=== PATIENT | male | born 1945 | race Caucasian/White ===

== ENCOUNTER → 2016-09-03 | Outpatient (CLI) | payer MEDICARE, OTHER ==
--- NOTE | 2016-09-03 11:07 | XR ---
EXAMINATION TYPE: XR lumbar spine 2 or 3V DATE OF EXAM: 09/03/2016 10:30 AM CLINICAL HISTORY: pain TECHNIQUE: Three views of the lumbar spine are submitted. COMPARISON: None. FINDINGS: There are 5 lumbar type vertebral bodies identified. The lumbar spine shows satisfactory alignment w ithout evidence of acute fracture or dislocation. Vertebral body heights are within normal limits. Moderate degenerative disc space narrowing and spondylosis identified. The overlying soft tissue ev ears unremarkable. IMPRESSION: No acute fracture or dislocation is seen in the lumbar spine. ICD 10 NO FRACTURE, INITIAL EVALUATION
--- NOTE | 2016-09-09 10:54 | P.ARTDOP ---
Arterial Doppler LOWER EXTREMITY ARTERIAL DOPPLER: DATE OF SERVICE: 09/03/2016 Reason for study: Left leg pain. Doppler waveforms: Multiphasic bilaterally throughout. Pulse volume recording: Normal configuration. Pressure gradients: None. Ankle-brachial indices: Greater than 1 bilaterally. Toe pressures: [] on the right, [] on the left Impression: Normal study.
== END | disposition home or self-care (01) ==
LOC: RADUSWWP 09:11
PROVIDERS: ATTEND Family Medicine
DX: I73.9 Peripheral vascular disease, unspecified (principal); M54.40 Lumbago with sciatica, unspecified side
CPT/HCPCS: 72100; 93923

== ENCOUNTER → 2017-05-25 | Outpatient (CLI) | payer MEDICARE, OTHER ==
[2017-05-25 08:33] LABS: Blood Urea Nitrogen 18 mg/dL (9-20); Non-African American GFR(MDRD) >60 (>60 ml/min/1.73 sqM)
--- NOTE | 2017-05-25 12:06 | CT ---
EXAMINATION TYPE: CT abdomen pelvis wo/w con DATE OF EXAM: 05/25/2017 COMPARISON: CT abdomen and pelvis September 19, 2014 HISTORY: hematuria CT DLP: 1909.40 mGycm, Automated Exposure Control for Dose Reduction was Utilized. CONTRAST: CT scan of the abdomen and pelvis is performed with oral and without and with IV Contrast, patient in jected with 100 mL of Omnipaque 300. LUNG BASES: There is basilar posterior scarring and cystic change redemonstrated. LIVER/GB: Cholecystectomy clips are now present. PANCREAS: No significant abnormality is seen. SPLEEN: Calcification along lateral aspect of spleen is redemonstrated. ADRENALS: No significant abnormality is seen. KIDNEYS: There is progression in bilateral renal calculi, there are 2 adjacent calculi upper pole col lecting system on the right on coronal image 64 measuring up to 5 mm on long axis. There are 5 -8 sca ttered calculi throughout the left kidney with largest lower pole level measuring almost 4.5 mm on lo ng axis. There is symmetric cortical medullary uptake and excretion from both kidneys. There are a fe w simple appearing cysts scattered throughout both kidneys with largest cyst seen upper pole level bi laterally. Some lesions are subcentimeter and too small to further characterize but presumed benign. No hydronephrosis is evident bilaterally. There is however obstructing 5 mm calculus in the distal le ft ureter right before UVJ on axial image 76. There is mild hydroureter just proximal to this. There is no significant proximal hydroureter. Adjacent pelvic phleboliths are seen. No intraluminal calculi are seen in bladder. BOWEL: There are scattered diverticula with prominent diverticulosis involving the sigmoid colon. The re is no CT evidence for acute diverticulitis. Oral contrast reaches proximal left colon. Normal-appe aring appendix is seen from cecum. There is no suspicious small or large bowel dilatation. PROSTATE/SEMINAL VESICLES: Prostate gland is upper limits of normal in size but bulging on bladder ba se, underlying BPH is felt present. Clinical correlation advised. Central zone calcifications are see n. LYMPH NODES: No greater than 1cm abdominal or pelvic lymph nodes are appreciated. OSSEOUS STRUCTURES: There is redemonstration of marked disc space narrowing at lumbosacral junction w ith disc calcification. There is fairly moderate to severe spurring in the visualized thoracic spine redemonstrated. OTHER: No significant additional abnormality is seen. IMPRESSION: Progression in size and number of bilateral renal calculi from prior CT 2014. There is ob structing 5 mm calculus in distal left ureter right before UVJ but is not causing significant hydrone phrosis or delayed excretion of contrast.
== END | disposition home or self-care (01) ==
LOC: RADCTMAIN 07:55
PROVIDERS: ATTEND Urology
DX: N13.2 Hydronephrosis with renal and ureteral calculous obstruction (principal)
CPT/HCPCS: 82565; 84520; 74178; 36415; Q9967

== ENCOUNTER 2017-06-12 18:50 | Inpatient (IN) | payer MEDICARE, OTHER ==
[2017-06-12] MEDS ORDERED: ACETAMINOPHEN TAB 325 MG TAB PO STA (19:18)
[2017-06-12] MEDS: SODIUM CHLORIDE 0.9% 500 ML IV SCH ×3 (19:33→20:43)
--- NOTE | 2017-06-12 19:37 | ED ---
General Adult HPI <Josh Arora - Last Filed: 06/12/17 20:12> - General Source: patient, RN notes reviewed Mode of arrival: ambulatory Limitations: no limitations <Rj Gardner - Last Filed: 06/12/17 20:15> - General Chief complaint: Urogenital Stated complaint: POST OP FEVER Time Seen by Provider: 06/12/17 19:01 - History of Present Illness Initial comments: This a 72-year-old male presents emergency Department with chief complaint of left flank pain, fever. Patient states he has stent placed by Dr. Earl on Wednesday for kidney stones. Patient states she's had this done several times in the past. Patient states that he has not been feeling well and states that symptoms are getting worse. Patient states it 2 nights of hematuria though that abruptly stopped and states that ever since he's had increased pain. Patient states every time he has to urinate he feels a pressure building has worsen the left flank region. Patient states that he has been taken his [place] which helps alleviate some a symptoms but not much. Patient states his urine output is less than usual. Patient denies any dysuria at this time. Patient states that he does feel slightly bloated especially when he has to urinate. Denies any diarrhea. He states he was constipated but took some over-the- counter medications which helped. Patient did call his urologist who advised him come emergency department. Patient did take 2 Aleve prior to arrival (Rj Gardner) - Related Data Home Medications Medication Instructions Recorded Confirmed Multivitamins, Thera [Multivitamin 1 tab PO DAILY 06/12/17 06/12/17 (formulary)] Allergies Allergy/AdvReac Type Severity Reaction Status Date / Time acetaminophen [From [place]] AdvReac Stomach Verified 06/12/17 19:28 upset, constipation hydrocodone [From [place]] AdvReac Stomach Verified 06/12/17 19:28 upset, constipation moxifloxacin HCl AdvReac Unknown Verified 09/15/14 23:29 [From Avelox] fluoroquinolones Allergy Itching Uncoded 06/12/17 19:28 Review of Systems ROS Other: All systems not noted in ROS Statement are negative. <Josh Arora - Last Filed: 06/12/17 20:12> ROS Other: All systems not noted in ROS Statement are negative. <Rj Gardner - Last Filed: 06/12/17 20:15> ROS Statement: Those systems with pertinent positive or pertinent negative responses have been documented in the HPI. Past Medical History Past Medical History: CVA/TIA, Diabetes Mellitus, Hypertension, Osteoarthritis ( OA), Pneumonia Additional Past Medical History / Comment(s): kidney stones, Lichen Planus, Jalcyn Ayon History of Any Multi-Drug Resistant Organisms: None Reported Past Surgical History: Orthopedic Surgery Additional Past Surgical History / Comment(s): kidney stones removed Past Psychological History: No Psychological Hx Reported Smoking Status: Former smoker Past Alcohol Use History: Occasional Past Drug Use History: None Reported <Rj Gardner - Last Filed: 06/12/17 20:15> General Exam Limitations: no limitations General appearance: alert, in no apparent distress Head exam: Present: atraumatic, normocephalic, normal inspection Eye exam: Present: normal appearance, PERRL, EOMI. Absent: scleral icterus, conjunctival injection, periorbital swelling ENT exam: Present: normal exam, normal oropharynx, mucous membranes moist, TM's normal bilaterally, normal external ear exam Neck exam: Present: normal inspection, full ROM. Absent: tenderness, meningismus, lymphadenopathy Respiratory exam: Present: normal lung sounds bilaterally. Absent: respiratory distress, wheezes, rales, rhonchi, stridor Cardiovascular Exam: Present: regular rate, normal rhythm, normal heart sounds. Absent: systolic murmur, diastolic murmur, rubs, gallop, clicks GI/Abdominal exam: Present: soft, normal bowel sounds. Absent: distended, tenderness, guarding, rebound, rigid Back exam: Present: CVA tenderness (L). Absent: CVA tenderness (R) Skin exam: Present: warm, dry, intact, normal color. Absent: rash <Rj Gardner - Last Filed: 06/12/17 20:15> Medical Decision Making - Lab Data Result diagrams: 06/12/17 19:37 06/12/17 19:37 <Josh Arora - Last Filed: 06/12/17 20:12> - Lab Data Result diagrams: 06/12/17 19:37 06/12/17 19:37 <Rj Gardner - Last Filed: 06/12/17 20:15> - Medical Decision Making Patient had a ureteral stent placed 4 days ago. Yesterday started difficulty having urinations and blood in the urine. Today he had fever between 100 102. Pain persists and he has difficulty urinating. He spoke to his urologist who told to come in emergency room. In emergency room the patient's labs show white count of 13, BUN 19 creatinine 1.1 GFR greater than 60. The patient's urine also shows 52 reds 42 whites and moderate blood. Culture of this urine is being done. The patient has ALLERGIES to fluoroquinolones. I discussed the case with his urologist Dr. Earl wants the patient admitted and placed on ampicillin and gentamicin. Dr. Arora (Josh Arora) - Lab Data Lab Results 06/12/17 06/12/17 06/12/17 Range/Units 19:37 19:37 19:37 WBC 13.2 H (3.8-10.6) k/uL RBC 4.69 (4.30-5.90) m/uL Hgb 16.1 (13.0-17.5) gm/dL Hct 46.1 (39.0-53.0) % MCV 98.2 (80.0-100.0) fL MCH 34.4 (25.0-35.0) pg MCHC 35.0 (31.0-37.0) g/dL RDW 12.8 (11.5-15.5) % Plt Count 169 (150-450) k/uL Neutrophils % 90 % Lymphocytes % 4 % Monocytes % 4 % Eosinophils % 1 % Basophils % 0 % Neutrophils # 11.9 H (1.3-7.7) k/uL Lymphocytes # 0.5 L (1.0-4.8) k/uL Monocytes # 0.6 (0-1.0) k/uL Eosinophils # 0.2 (0-0.7) k/uL Basophils # 0.0 (0-0.2) k/uL PT (9.0-12.0) sec INR (<1.2) APTT (22.0-30.0) sec Sodium 135 L (137-145) mmol/L Potassium 4.3 (3.5-5.1) mmol/L Chloride 99 (98-107) mmol/L Carbon Dioxide 23 (22-30) mmol/L Anion Gap 13 mmol/L BUN 19 (9-20) mg/dL Creatinine 1.10 (0.66-1.25) mg/dL Est GFR (MDRD) Af Amer >60 (>60 ml/min/1.73 sqM) Est GFR (MDRD) Non-Af >60 (>60 ml/min/1.73 sqM) Glucose 178 H (74-99) mg/dL Plasma Lactic Acid Mike 1.9 (0.7-2.0) mmol/L Calcium 9.5 (8.4-10.2) mg/dL Total Bilirubin 1.3 (0.2-1.3) mg/dL AST 15 L (17-59) U/L ALT 34 (21-72) U/L Alkaline Phosphatase 78 (38-126) U/L Total Protein 6.7 (6.3-8.2) g/dL Albumin 4.0 (3.5-5.0) g/dL Urine Color Urine Appearance (Clear) Urine pH (5.0-8.0) Ur Specific [place] (1.001-1.035) Urine Protein (Negative) Urine Glucose (UA) (Negative) Urine Ketones (Negative) Urine Blood (Negative) Urine Nitrite (Negative) Urine Bilirubin (Negative) Urine Urobilinogen (<2.0) mg/dL Ur Leukocyte Esterase (Negative) Urine RBC (0-5) /hpf Urine WBC (0-5) /hpf Ur Squamous Epith Cells (0-4) /hpf Urine Bacteria (None) /hpf Urine Mucus (None) /hpf 06/12/17 06/12/17 Range/Units 19:37 19:37 WBC (3.8-10.6) k/uL RBC (4.30-5.90) m/uL Hgb (13.0-17.5) gm/dL Hct (39.0-53.0) % MCV (80.0-100.0) fL MCH (25.0-35.0) pg MCHC (31.0-37.0) g/dL RDW (11.5-15.5) % Plt Count (150-450) k/uL Neutrophils % % Lymphocytes % % Monocytes % % Eosinophils % % Basophils % % Neutrophils # (1.3-7.7) k/uL Lymphocytes # (1.0-4.8) k/uL Monocytes # (0-1.0) k/uL Eosinophils # (0-0.7) k/uL Basophils # (0-0.2) k/uL PT 11.8 (9.0-12.0) sec INR 1.2 H (<1.2) APTT 24.2 (22.0-30.0) sec Sodium (137-145) mmol/L Potassium (3.5-5.1) mmol/L Chloride (98-107) mmol/L Carbon Dioxide (22-30) mmol/L Anion Gap mmol/L BUN (9-20) mg/dL Creatinine (0.66-1.25) mg/dL Est GFR (MDRD) Af Amer (>60 ml/min/1.73 sqM) Est GFR (MDRD) Non-Af (>60 ml/min/1.73 sqM) Glucose (74-99) mg/dL Plasma Lactic Acid Mike (0.7-2.0) mmol/L Calcium (8.4-10.2) mg/dL Total Bilirubin (0.2-1.3) mg/dL AST (17-59) U/L ALT (21-72) U/L Alkaline Phosphatase (38-126) U/L Total Protein (6.3-8.2) g/dL Albumin (3.5-5.0) g/dL Urine Color Yellow Urine Appearance Clear (Clear) Urine pH 7.5 (5.0-8.0) Ur Specific [place] 1.009 (1.001-1.035) Urine Protein 1+ H (Negative) Urine Glucose (UA) Negative (Negative) Urine Ketones Trace H (Negative) Urine Blood Moderate H (Negative) Urine Nitrite Negative (Negative) Urine Bilirubin Negative (Negative) Urine Urobilinogen <2.0 (<2.0) mg/dL Ur Leukocyte Esterase Large H (Negative) Urine RBC 54 H (0-5) /hpf Urine WBC 42 H (0-5) /hpf Ur Squamous Epith Cells <1 (0-4) /hpf Urine Bacteria Rare H (None) /hpf Urine Mucus Rare H (None) /hpf Disposition <Josh Arora - Last Filed: 06/12/17 20:12> <Rj Gardner - Last Filed: 06/12/17 20:15> Clinical Impression: Fever, Infection and inflammatory reaction due to indwelling ureteral stent, initial encounter Disposition: ADMITTED IP TO THIS HOSP Condition: Fair Referrals: Marshall Robertson MD [Primary Care Provider] - 1-2 days
[2017-06-12 19:55] LABS: Appearance,Urine Clear (Clear); Bacteria,Urine Rare /hpf; Bilirubin,Urine Negative (Negative); Glucose,Urine (UA) Negative (Negative); Ketones,Urine Trace (Negative); Leukocyte Esterase,Urine Large (Negative); Mucus,Urine Rare /hpf; Nitrite,Urine Negative (Negative); PH, Urine 7.5 (5.0-8.0); Particle Count 3010; Protein,Urine 1+ (Negative); RBC,Urine 54 /hpf (0-5); Specific Gravity,Urine 1.009 (1.001-1.035); Squamous Epithelial Cell,Urine <1 /hpf (0-4); UA Billing (MACRO vs. MICRO) MICRO; Urobilinogen,Urine <2.0 mg/dL (<2.0); WBC,Urine 42 /hpf (0-5)
[2017-06-12 19:57] LABS: Basophils % (A) 0 %; CHCM 34.8; Eosinophils # (A) 0.2 k/uL (0-0.7); Eosinophils % (A) 1 %; HCT 46.1 % (39.0-53.0); HDW 2.66; HGB 16.1 gm/dL (13.0-17.5); Luc # (Auto) 0.08; Luc % (Auto) 1; Lymphocytes # (A) 0.5 k/uL (1.0-4.8); Lymphocytes % (A) 4 %; MCH 34.4 pg (25.0-35.0); MCV 98.2 fL (80.0-100.0); Mean Platelet Volume 6.9; Monocytes # (A) 0.6 k/uL (0-1.0); Monocytes % (A) 4 %; Neutrophils # (A) 11.9 k/uL (1.3-7.7); Neutrophils % (A) 90 %; RBC 4.69 m/uL (4.30-5.90); RDW 12.8 % (11.5-15.5); WBC 13.2 k/uL (3.8-10.6); WBC (Perox) 13.58
[2017-06-12 20:01] LABS: ALT 34 U/L (21-72); AST 15 U/L (17-59); Alkaline Phosphatase 78 U/L (38-126); Anion Gap 13 mmol/L; Blood Urea Nitrogen 19 mg/dL (9-20); Calcium 9.5 mg/dL (8.4-10.2); Carbon Dioxide 23 mmol/L (22-30); Chloride 99 mmol/L (98-107); Glucose 178 mg/dL (74-99); Non-African American GFR(MDRD) >60 (>60 ml/min/1.73 sqM); Potassium 4.3 mmol/L (3.5-5.1); Sodium 135 mmol/L (137-145); Total Bilirubin 1.3 mg/dL (0.2-1.3); Total Protein 6.7 g/dL (6.3-8.2)
[2017-06-12 20:04] LABS: INR 1.2 (<1.2); Partial Thromboplastin Time 24.2 sec (22.0-30.0); Prothrombin Time 11.8 sec (9.0-12.0)
[2017-06-12] MEDS ORDERED: AMPICILLIN 2,000 MG in SODIUM CHLORIDE 0.9% 100 ML IVPB STA (20:13)
[2017-06-12] MEDS ORDERED: GENTAMICIN PER PHARMACY MISCELLANE SCH (20:15)
[2017-06-12] MEDS ORDERED: NALOXONE 0.4 MG/ML 1 ML VIAL IV PRN (20:15)
[2017-06-12] MEDS ORDERED: ONDANSETRON 4 MG/2 ML VIAL IVP PRN (20:15)
[2017-06-12] MEDS ORDERED: MORPHINE SULFATE 2 MG/ML SYRINGE IV PRN (20:15)
[2017-06-12] MEDS ORDERED: ACETAMINOPHEN TAB 325 MG TAB PO PRN (20:15)
[2017-06-12] MEDS ORDERED: HYDROcodone/APAP 7.5-325MG 1 EACH TAB PO PRN (20:16)
[2017-06-12] MEDS ORDERED: GENTAMICIN 120 MG in SODIUM CHLORIDE 0.9% 100 ML IVPB ONE (21:00)
[2017-06-12 22:52] VITALS: BMI 27.1
[2017-06-13] MEDS: AMPICILLIN 2,000 MG in SODIUM CHLORIDE 0.9% 100 ML IVPB SCH ×3 (00:28→16:40)
[2017-06-13] MEDS: DOCUSATE 100 MG CAP PO SCH ×2 (08:41→20:32)
[2017-06-13] MEDS: TAMSULOSIN 0.4 MG CAP.ER.24H PO SCH (08:41)
[2017-06-13] MEDS: GENTAMICIN 120 MG in SODIUM CHLORIDE 0.9% 100 ML IVPB SCH ×2 (10:42→20:32)
[2017-06-13] MEDS ORDERED: VANCOMYCIN IV PER PHARMACY 1 EACH MISC MISCELLANE PRN (20:46)
[2017-06-13] MEDS: VANCOMYCIN 1,250 MG in SODIUM CHLORIDE 0.9% 250 ML IVPB SCH (21:06)
[2017-06-14] MEDS: VANCOMYCIN 1,250 MG in SODIUM CHLORIDE 0.9% 250 ML IVPB SCH ×2 (05:18→18:00)
[2017-06-14 06:59] LABS: Glucose,Whole Blood 152 mg/dL (75-99)
[2017-06-14] MEDS ORDERED: INSULIN LISPRO (humaLOG) 300 UNIT/3 ML VIAL SQ SCH (07:30)
[2017-06-14 07:51] LABS: Anion Gap 9 mmol/L; Blood Urea Nitrogen 15 mg/dL (9-20); Calcium 9.3 mg/dL (8.4-10.2); Carbon Dioxide 23 mmol/L (22-30); Chloride 105 mmol/L (98-107); Glucose 145 mg/dL (74-99); Non-African American GFR(MDRD) >60 (>60 ml/min/1.73 sqM); Potassium 4.5 mmol/L (3.5-5.1); Sodium 137 mmol/L (137-145)
[2017-06-14] MEDS ORDERED: GENTAMICIN TROUGH DUE 1 EACH MISC MISCELLANE ONE (08:00)
[2017-06-14 08:07] LABS: Basophils % (A) 0 %; CH 33.7; CHCM 33.9; Eosinophils # (A) 0.2 k/uL (0-0.7); Eosinophils % (A) 2 %; HCT 38.5 % (39.0-53.0); HDW 2.72; HGB 13.2 gm/dL (13.0-17.5); Luc # (Auto) 0.19; Luc % (Auto) 2; Lymphocytes % (A) 9 %; MCH 34.3 pg (25.0-35.0); MCHC 34.3 g/dL (31.0-37.0); MCV 100.1 fL (80.0-100.0); Monocytes # (A) 0.7 k/uL (0-1.0); Monocytes % (A) 6 %; Neutrophils # (A) 9.5 k/uL (1.3-7.7); Neutrophils % (A) 82 %; RBC 3.85 m/uL (4.30-5.90); RDW 12.8 % (11.5-15.5); WBC 11.6 k/uL (3.8-10.6); WBC (Perox) 11.27
[2017-06-14] MEDS: DOCUSATE 100 MG CAP PO SCH ×2 (08:44→19:29)
[2017-06-14] MEDS: MAGNESIUM HYDROXIDE 2,400 MG/10 ML CUP PO PRN (08:44)
[2017-06-14] MEDS: TAMSULOSIN 0.4 MG CAP.ER.24H PO SCH (08:44)
[2017-06-14] MEDS ORDERED: GENTAMICIN PEAK DUE 1 EACH MISC MISCELLANE ONE (10:30)
[2017-06-14 11:52] LABS: Glucose,Whole Blood 145 mg/dL (75-99)
--- NOTE | 2017-06-14 16:04 | P.PN ---
Subjective Progress Note Date: 06/14/17 Principal diagnosis: UTI with sepsis. Mr. Cisneros states that he is feeling better. His primary symptom at this time is urinary frequency, and he reports discomfort in the left flank at the time of micturition. He was reassured that this is common in patients with ureteral stents. Both urine and blood cultures have shown coagulase negative Staphylococcus, and in view of this he is being treated with vancomycin. Bladder Scan confirms complete bladder emptying. Objective - Vital Signs Vital signs: Vital Signs Temp 98 F 06/14/17 15:01 Pulse 67 06/14/17 15:01 Resp 16 06/14/17 15:01 BP 153/69 06/14/17 15:01 Pulse Ox 96 06/14/17 15:01 Intake & Output 06/13/17 06/14/17 06/14/17 18:59 06:59 18:59 Intake Total 700 875 Output Total 1350 300 Balance -650 875 -300 Intake: IV 600 Ampicillin 2,000 mg In 100 Sodium Chloride 0.9% 100 ml @ 200 mls/hr IVPB ONCE STA Rx#:[id number] Sodium Chloride 0.9% 500 500 ml @ 1000 mls/hr IV Q35M BANDAR Rx#:[id number] Intake, IV Titration 100 375 Amount Gentamicin 120 mg In 100 Sodium Chloride 0.9% 100 ml @ 103 mls/hr IVPB Q12HR BANDAR Rx#:[id number] Vancomycin 1,250 mg In 375 Sodium Chloride 0.9% 250 ml @ 125 mls/hr IVPB BID@ 0600,1800 BANDAR Rx#: [id number] Oral 500 Output: Urine 1350 300 Other: Voiding Method Urinal Urinal Urinal # Voids 2 3 1 - Constitutional General appearance: Present: cooperative, no acute distress - Gastrointestinal General gastrointestinal: Present: soft. Absent: distended, tenderness - Psychiatric Psychiatric: Present: A&O x's 3, appropriate affect - Labs CBC & Chem 7: 06/14/17 07:20 06/14/17 07:20 Labs: Abnormal Lab Results - Last 24 Hours (Table) 06/14/17 06/14/17 06/14/17 Range/Units 06:45 07:20 07:20 WBC 11.6 H (3.8-10.6) k/uL RBC 3.85 L (4.30-5.90) m/uL Hct 38.5 L (39.0-53.0) % MCV 100.1 H (80.0-100.0) fL Neutrophils # 9.5 H (1.3-7.7) k/uL Glucose 145 H (74-99) mg/dL POC Glucose (mg/dL) 152 H (75-99) mg/dL 06/14/17 Range/Units 11:44 WBC (3.8-10.6) k/uL RBC (4.30-5.90) m/uL Hct (39.0-53.0) % MCV (80.0-100.0) fL Neutrophils # (1.3-7.7) k/uL Glucose (74-99) mg/dL POC Glucose (mg/dL) 145 H (75-99) mg/dL Microbiology - Last 24 Hours (Table) 05/30/17 19:37 Blood Culture Gram Stain - Preliminary Blood Blood Culture - Preliminary Coagulase Negative Staph 06/12/17 19:37 Blood Culture - Final Blood 06/12/17 19:37 Urine Culture - Preliminary Urine,Voided Coagulase Negative Staph Assessment and Plan (1) Febrile illness, acute Status: Acute Plan: Continue vancomycin, pending final culture results.
[2017-06-14 17:04] LABS: Glucose,Whole Blood 127 mg/dL (75-99)
[2017-06-14 20:07] LABS: Glucose,Whole Blood 261 mg/dL (75-99)
[2017-06-15] MEDS: MAGNESIUM HYDROXIDE 2,400 MG/10 ML CUP PO PRN (05:25)
[2017-06-15] MEDS: VANCOMYCIN 1,250 MG in SODIUM CHLORIDE 0.9% 250 ML IVPB SCH (05:25)
[2017-06-15 05:46] LABS: Glucose,Whole Blood 137 mg/dL (75-99)
[2017-06-15 08:18] LABS: Anion Gap 13 mmol/L; Blood Urea Nitrogen 20 mg/dL (9-20); Calcium 9.4 mg/dL (8.4-10.2); Carbon Dioxide 23 mmol/L (22-30); Chloride 104 mmol/L (98-107); Glucose 147 mg/dL (74-99); Non-African American GFR(MDRD) >60 (>60 ml/min/1.73 sqM); Potassium 4.5 mmol/L (3.5-5.1); Sodium 140 mmol/L (137-145)
[2017-06-15] MEDS: DOCUSATE 100 MG CAP PO SCH (08:48)
[2017-06-15] MEDS: TAMSULOSIN 0.4 MG CAP.ER.24H PO SCH (08:49)
[2017-06-15 08:52] VITALS: BP 169/93; RESP 18; TEMP 97.7
[2017-06-15 12:56] VITALS: PULSE 78
--- NOTE | 2017-06-15 13:20 | P.DS ---
Providers Date of admission: 06/12/17 20:15 Expected date of discharge: 06/15/17 Attending physician: Sajan Earl Primary care physician: Marshall Robertson - Discharge Diagnosis(es) (1) Febrile illness, acute Current Visit: Yes Status: Acute Priority: High Hospital Course: The patient underwent ureteroscopic removal of a left ureteral calculus. He was admitted with symptoms of dysuria, fever, and chills. Urine and blood cultures were sent. He was noted to have leukocytosis. He was initially treated with ampicillin and gentamicin. He promptly defervesced, and remained afebrile throughout the remainder of the hospitalization. His symptoms improved promptly, and he felt well at the time of discharge. Once the blood cultures showed Staphylococcus, the antibiotics were changed to Vancomycin. Pertinent Studies: Urine and Blood Cultures show Coag. negative Staph Patient Condition at Discharge: Good Plan - Discharge Summary New Discharge Prescriptions: New Sulfamethox-Tmp 800-160Mg [Bactrim DS 800-160 mg] 1 tab PO Q12HR #20 tab Tamsulosin [Flomax] 0.4 mg PO DAILY #30 cap No Action Multivitamins, Thera [Multivitamin (formulary)] 1 tab PO DAILY Discharge Medication List Multivitamins, Thera [Multivitamin (formulary)] 1 tab PO DAILY 06/12/17 [History ] Sulfamethox-Tmp 800-160Mg [Bactrim DS 800-160 mg] 1 tab PO Q12HR #20 tab [Rx] Tamsulosin [Flomax] 0.4 mg PO DAILY #30 cap 06/15/17 [Rx] Follow up Appointment(s)/Referral(s): Marshall Robertson MD [Primary Care Provider] - 1-2 days Sajan Earl MD [STAFF PHYSICIAN] - 1 Week Activity/Diet/Wound Care/Special Instructions: Diet as tolerated. Drink plenty of fluids. Activities as tolerated. Discharge Disposition: HOME SELF-CARE
[2017-06-16] MEDS ORDERED: VANCOMYCIN TROUGH DUE 1 EACH MISC MISCELLANE ONE (05:00)
--- NOTE | 2017-06-17 08:31 | P.GSHP ---
History of Present Illness H&P Date: 06/13/17 Chief Complaint: Fever, chills, difficulty voiding. The patient is a 72-year-old white male with a history of urolithiasis. He also has a history of urethral stricture disease. He recently underwent left ureteroscopy with laser lithotripsy to remove a . At that time, his urethral stricture was noted to be of wide caliber, and did not require an internal ureterotomy. 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 The calculus was fragmented, and a ureteral stent was left in place. He has experienced intermittent hematuria since that time, as well as increased urinary frequency. These symptoms are expected in patients with ureteral stents. However, he developed increased dysuria yesterday associated with fever and was thus admitted. - Constitutional Constitutional: Reports chills, Reports fever - Respiratory Respiratory: Denies dyspnea - Gastrointestinal Gastrointestinal: Reports constipation - Genitourinary (Female) Genitourinary: Reports dysuria Past Medical History Past Medical History: CVA/TIA, Diabetes Mellitus, Hypertension, Osteoarthritis ( OA), Pneumonia Additional Past Medical History / Comment(s): kidney stones, Lichen Planus, Jaclyn Ayon History of Any Multi-Drug Resistant Organisms: None Reported Past Surgical History: Orthopedic Surgery Additional Past Surgical History / Comment(s): kidney stones removed Past Psychological History: No Psychological Hx Reported Smoking Status: Former smoker Past Alcohol Use History: Occasional Past Drug Use History: None Reported Medications and Allergies Home Medications Medication Instructions Recorded Confirmed Type Multivitamins, Thera [Multivitamin 1 tab PO DAILY 06/12/17 06/12/17 History (formulary)] Allergies Allergy/AdvReac Type Severity Reaction Status Date / Time acetaminophen [From [place]] AdvReac Stomach Verified 06/12/17 19:28 upset, constipation hydrocodone [From [place]] AdvReac Stomach Verified 06/12/17 19:28 upset, constipation moxifloxacin HCl AdvReac Unknown Verified 09/15/14 23:29 [From Avelox] fluoroquinolones Allergy Itching Uncoded 06/12/17 19:28 Surgical - Exam Vital Signs Temp Pulse Resp BP Pulse Ox 101.9 F H 92 18 181/79 97 06/12/17 18:52 06/12/17 18:52 06/12/17 18:52 06/12/17 18:52 06/12/17 18:52 - General well developed, well nourished, no distress - Respiratory normal respiratory effort - Abdomen Abdomen: soft, non tender, no guarding, no rigid, no rebound - Genitourinary normal penis with no external lesions, testicles non-tender - Psychiatric oriented to time, oriented to person, oriented to place, speech is normal, memory intact Results - Labs 06/12/17 19:37 06/12/17 19:37 Abnormal Lab Results - Last 24 Hours (Table) 06/12/17 06/12/17 06/12/17 Range/Units 19:37 19:37 19:37 WBC 13.2 H (3.8-10.6) k/uL Neutrophils # 11.9 H (1.3-7.7) k/uL Lymphocytes # 0.5 L (1.0-4.8) k/uL INR 1.2 H (<1.2) Sodium 135 L (137-145) mmol/L Glucose 178 H (74-99) mg/dL AST 15 L (17-59) U/L Urine Protein (Negative) Urine Ketones (Negative) Urine Blood (Negative) Ur Leukocyte Esterase (Negative) Urine RBC (0-5) /hpf Urine WBC (0-5) /hpf Urine Bacteria (None) /hpf Urine Mucus (None) /hpf 06/12/17 Range/Units 19:37 WBC (3.8-10.6) k/uL Neutrophils # (1.3-7.7) k/uL Lymphocytes # (1.0-4.8) k/uL INR (<1.2) Sodium (137-145) mmol/L Glucose (74-99) mg/dL AST (17-59) U/L Urine Protein 1+ H (Negative) Urine Ketones Trace H (Negative) Urine Blood Moderate H (Negative) Ur Leukocyte Esterase Large H (Negative) Urine RBC 54 H (0-5) /hpf Urine WBC 42 H (0-5) /hpf Urine Bacteria Rare H (None) /hpf Urine Mucus Rare H (None) /hpf Microbiology - Last 24 Hours (Table) 06/12/17 19:37 Urine Culture - Preliminary Urine,Voided Diabetes panel 06/12/17 Range/Units 19:37 Sodium 135 L (137-145) mmol/L Potassium 4.3 (3.5-5.1) mmol/L Chloride 99 (98-107) mmol/L Carbon Dioxide 23 (22-30) mmol/L BUN 19 (9-20) mg/dL Creatinine 1.10 (0.66-1.25) mg/dL Glucose 178 H (74-99) mg/dL Calcium 9.5 (8.4-10.2) mg/dL AST 15 L (17-59) U/L ALT 34 (21-72) U/L Alkaline Phosphatase 78 (38-126) U/L Total Protein 6.7 (6.3-8.2) g/dL Albumin 4.0 (3.5-5.0) g/dL Calcium panel 06/12/17 Range/Units 19:37 Calcium 9.5 (8.4-10.2) mg/dL Albumin 4.0 (3.5-5.0) g/dL Pituitary panel 06/12/17 Range/Units 19:37 Sodium 135 L (137-145) mmol/L Potassium 4.3 (3.5-5.1) mmol/L Chloride 99 (98-107) mmol/L Carbon Dioxide 23 (22-30) mmol/L BUN 19 (9-20) mg/dL Creatinine 1.10 (0.66-1.25) mg/dL Glucose 178 H (74-99) mg/dL Calcium 9.5 (8.4-10.2) mg/dL Adrenal panel 06/12/17 Range/Units 19:37 Sodium 135 L (137-145) mmol/L Potassium 4.3 (3.5-5.1) mmol/L Chloride 99 (98-107) mmol/L Carbon Dioxide 23 (22-30) mmol/L BUN 19 (9-20) mg/dL Creatinine 1.10 (0.66-1.25) mg/dL Glucose 178 H (74-99) mg/dL Calcium 9.5 (8.4-10.2) mg/dL Total Bilirubin 1.3 (0.2-1.3) mg/dL AST 15 L (17-59) U/L ALT 34 (21-72) U/L Alkaline Phosphatase 78 (38-126) U/L Total Protein 6.7 (6.3-8.2) g/dL Albumin 4.0 (3.5-5.0) g/dL Assessment and Plan (1) Febrile illness, acute Status: Acute Plan: The patient is a 72-year-old white male who recently underwent left ureteroscopy with laser lithotripsy. A ureteral stent was left in place, and he now presents with urinary frequency, dysuria, and fever. This suggests the likelihood of a febrile urinary tract infection. He will receive broad- spectrum antibiotics, pending the urine culture result. In the meantime, bladder scan will be performed to confirm bladder emptying. At the time of cystoscopy, he was noted to have BPH, and in view of this tamsulosin will be prescribed. Milk of magnesia has been ordered for constipation.
== END 2017-06-15 14:38 | disposition home or self-care (01) | DRG 864 ==
LOC: EC 18:50 → 3SUR 20:15
PROVIDERS: ADMIT Urology; ATTEND Urology
DX: R50.82 Postprocedural fever (principal); E11.9 Type 2 diabetes mellitus without complications; N39.0 Urinary tract infection, site not specified; I10 Essential (primary) hypertension; K59.00 Constipation, unspecified; N40.0 Benign prostatic hyperplasia without lower urinary tract symptoms; Z86.73 Personal history of transient ischemic attack (TIA), and cerebral infarction without residual deficits; Z87.442 Personal history of urinary calculi; Z87.891 Personal history of nicotine dependence; Z79.899 Other long term (current) drug therapy
CPT/HCPCS: 36415; 80048; 80053; 81001; 83605; 85025; 85610; 85730; 87040; 87077; 87086; 87186; 96361; 96365; 99284

== ENCOUNTER 2018-07-07 06:19 | Day surgery (SDC) | payer MEDICARE, OTHER ==
[2018-06-27 11:24] VITALS: BMI 26.4
[~2018-07-07 06:19] MED LIST: DEXAMETHASONE SOD PHOSPHATE 10 MG/ML 1 ML VIAL IV ONE; MIDAZOLAM 2 MG/2 ML VIAL IV PRN; ONDANSETRON 4 MG/2 ML VIAL IVP ONE; Pre Op ABX Message 1 EACH MISC MISCELLANE ONE; SCOPOLAMINE 1.5MG/72HR PATCH TRANSDERM ONE
[2018-07-07] MEDS: LACTATED RINGERS 1,000 ML IV SCH ×2 (07:06→07:30)
[2018-07-07] MEDS ORDERED: LIDOCAINE 1% 20 ML VIAL (10MG/ML) FOR IV START INTRADERMA ONE (07:07)
[2018-07-07 07:25] LABS: Glucose,Whole Blood 131 mg/dL (75-99)
[2018-07-07] MEDS ORDERED: SUCCINYLCHOLINE CHLORIDE 100 MG/5 ML SYR IV ONE (07:30)
[2018-07-07] MEDS ORDERED: MIDAZOLAM 2 MG/2 ML VIAL ONE (07:30)
[2018-07-07] MEDS ORDERED: PROPOFOL 10 MG/ML 20 ML VIAL IV ONE (07:30)
[2018-07-07] MEDS ORDERED: fentaNYL (PF) 50 MCG/ML 2 ML AMP ONE (07:30)
[2018-07-07] MEDS ORDERED: BUPIVACAIN-EPI 0.5%-1:200,000 30 ML VIAL SQ ONE (08:20)
--- NOTE | 2018-07-07 08:44 | P.OP ---
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 A result of hyperkeratosis and epithelial atypia. Patient and present for discussion options presented included observation or ablation of existing leukoplakia. Patient and were concerned about recurrence and difficulty and continued monitoring so the decision to remove the remaining leukoplakia. Operative Findings: none Description of Procedure: Patient and seen in preop consent reviewed with the patient and including but not limited to bleeding pain infection swelling damage to adjacent structures need for possible root canals difficulty with the laser. Goal the procedure also reviewed the removal of superficial layer with leukoplakia removal likelihood for recurrence does exist but biopsy in the future will be more directed based on diffuse leukoplakia being gone. Patient taken to the operating room and intubated orally with the laser guarded tube. He was prepped and draped in the usual fashion for laser ablation including multiple wet towels around the face eyes protected with goggles and teeth protected with wet gauze. A throat pack was placed. Bite block placed no metallic instruments used for retraction. Non-flammable KY jelly was placed over the lips and gums teeth in the air in the areas that were not to be lasered. Then the left side was addressed with the subtle leathery tissue noted approximately 2 cm x 2 cm. It was noted to be away from the area of the parotid duct. The CO2 laser element was then tested underwent tongue blade and a 3 W continuous laser pulse was used with just full length manually to ensure that only the superficial to layers of the mucosa were removed. An area of the lesion was then ablated with ajay being removed to ensure that pinpoint bleeding was present. This verified that the depth was appropriate and the remaining lesion was outlined with the laser and then using a brush technique completely ablated. After ajay removal and pinpoint bleeding noted on all areas of the left buccal was packed and the tube was moved over to the left side bite block removed throat pack replaced appropriate draping and structure protection was done and the outline of the leathery white areas on the right side was then done and brush stroke technique used to completely ablate the right side the size of the lesion was slightly larger approximately 2 x 2 and a half and the parotid duct appeared to be functioning postoperatively. Patient was then packed with Plan - Discharge Summary New Discharge Prescriptions: No Action Naproxen Sodium [Aleve] 440 mg PO BID PRN PRN Reason: Pain Losartan Potassium [Cozaar] 100 mg PO DAILY LORazepam [Ativan] 1 mg PO DAILY PRN PRN Reason: Anxiety Aspirin 650 mg PO DIRECTED PRN PRN Reason: Pain L.acidoph,Paracasei, B.lactis [Probiotic] 1 each PO DAILY Hydrochlorothiazide 25 mg PO DAILY Aloe Vera Supplement 1 tab PO DAILY Discharge Medication List Aloe Vera Supplement 1 tab PO DAILY 06/27/18 [History] Aspirin 650 mg PO DIRECTED PRN 06/27/18 [History] Hydrochlorothiazide 25 mg PO DAILY 06/27/18 [History] L.acidoph,Paracasei, B.lactis [Probiotic] 1 each PO DAILY 06/27/18 [History] LORazepam [Ativan] 1 mg PO DAILY PRN 06/27/18 [History] Losartan Potassium [Cozaar] 100 mg PO DAILY 06/27/18 [History] Naproxen Sodium [Aleve] 440 mg PO BID PRN 06/27/18 [History]
[2018-07-07 08:46] VITALS: RESP 16; TEMP 97.3
[2018-07-07] MEDS: HYDROmorphone 0.5 MG/0.5 ML SYRINGE IVP PRN ×4 (09:19→09:40)
[2018-07-07] MEDS ORDERED: HYDROcodone/APAP 7.5-325MG 1 EACH TAB PO ONE (10:10)
[2018-07-07 10:17] VITALS: PULSE 80
[2018-07-07 10:46] VITALS: BP 163/93
== END 2018-07-07 11:00 | disposition home or self-care (01) ==
LOC: OR 06:19
PROVIDERS: ATTEND Dentist Oral and Maxillofacial Surgery
DX: K13.21 Leukoplakia of oral mucosa, including tongue (principal); L85.9 Epidermal thickening, unspecified; E11.9 Type 2 diabetes mellitus without complications; E78.5 Hyperlipidemia, unspecified; E66.3 Overweight; Z68.25 Body mass index [BMI] 25.0-25.9, adult; F41.9 Anxiety disorder, unspecified; K21.9 Gastro-esophageal reflux disease without esophagitis; I10 Essential (primary) hypertension; Z79.82 Long term (current) use of aspirin; Z79.899 Other long term (current) drug therapy; Z88.5 Allergy status to narcotic agent; Z88.1 Allergy status to other antibiotic agents; Z88.8 Allergy status to other drugs, medicaments and biological substances; Z88.3 Allergy status to other anti-infective agents; Z79.891 Long term (current) use of opiate analgesic; Z83.3 Family history of diabetes mellitus; Z79.1 Long term (current) use of non-steroidal anti-inflammatories (NSAID); Z86.73 Personal history of transient ischemic attack (TIA), and cerebral infarction without residual deficits
CPT/HCPCS: 40820; J2250; J1100; J2405; J3010; J0330; J2704; J1170

== ENCOUNTER 2018-10-12 21:37 | Inpatient (IN) | payer MEDICARE, OTHER ==
[2018-10-12] MEDS ORDERED: SODIUM CHLORIDE 0.9% 1,000 ML IV STA ×2 (21:52)
--- NOTE | 2018-10-12 21:59 | ED ---
Dizziness HPI - General Chief Complaint: Dizziness Stated Complaint: NVD/Weakness Time Seen by Provider: 10/12/18 21:51 Source: patient, EMS, RN notes reviewed, old records reviewed Mode of arrival: EMS Limitations: no limitations - History of Present Illness Initial Comments: This is a 73-year-old male to the ER for evaluation of severe weakness. Patient currently going through colonoscopy preparation, became very weak when to the bathroom was unable to get up off the bathroom. Patient's brought in by EMS, patient still complains of severe weakness dizziness lightheadedness room spinning nausea and heartburn. No chest pain. Patient also is been nauseous vomiting with diarrhea throughout the day. MD Complaint: dizziness, lightheadedness, near syncope -: hour(s) Timing: gradual onset Description: sense of movement, lightheadedness, nausea, near-syncope History of Same: No History of Trauma: No Severity: moderate Improves With: nothing Worsens With: movement Associated Symptoms: denies other symptoms - Related Data Home Medications Medication Instructions Recorded Confirmed Aspirin 650 mg PO QID PRN 06/27/18 10/12/18 L.acidoph,Paracasei, B.lactis 1 cap PO DAILY 06/27/18 10/12/18 [Probiotic] Losartan Potassium [Cozaar] 100 mg PO DAILY 06/27/18 10/12/18 Hydrochlorothiazide [Hydrodiuril] 25 mg PO DAILY PRN 10/12/18 10/12/18 LORazepam [Ativan] 0.5 mg PO DAILY PRN 10/12/18 10/12/18 Allergies Allergy/AdvReac Type Severity Reaction Status Date / Time lisinopril Allergy Unknown BODY Verified 10/12/18 21:50 ACHES, EXHAUSTION, PAIN amlodipine Allergy SEVERE LEG Verified 10/12/18 21:50 PAIN, "MESSES UP HIS THINKING" ciprofloxacin [From Cipro] AdvReac Unknown SLURRED Verified 10/12/18 21:50 SPEECH ezetimibe [From Zetia] AdvReac Unknown BODY ACHES Verified 10/12/18 21:50 ofloxacin [From Floxin] AdvReac Unknown SLURRED Verified 10/12/18 21:50 SPEECH hydrocodone [From [place]] AdvReac Stomach Verified 10/12/18 21:50 upset, constipation moxifloxacin HCl AdvReac TREMBLE , Verified 10/12/18 21:50 [From Avelox] LIGHTHEADED, WEAK fluoroquinolones Allergy Itching Uncoded 10/12/18 21:44 Review of Systems ROS Statement: Those systems with pertinent positive or pertinent negative responses have been documented in the HPI. ROS Other: All systems not noted in ROS Statement are negative. Past Medical History Past Medical History: CVA/TIA, Diabetes Mellitus, GERD/Reflux, Hypertension, Osteoarthritis (OA), Pneumonia Additional Past Medical History / Comment(s): MULTIPLE TIA'S (7) - RIGHT SIDED WEAKNESS RESOLVED.- SLIGHT MEMORY IMPAIRMENT., VARICOSE VEINS, KIDNEY STONES, LICHEN PLANUS ON HIS LEGS, GARETH MARTINEZ.,DIABETES RESOLVED WITH WT LOSS., NOW HAS EPISODES OF HYPOGLYCEMIA., PINCHED NERVE NECK WITH PAIN IN NECK & SHOULDERS.,RECEIVING INJECTIONS FOR NECK PAIN, RIGHT ARM GOES NUMB AND A COUPLE FINGERS ARE NUMB., TORN RIGHT ROTATOR CUFF., BPH WITH UROLIFT PROCEDURE. , PT HAS 2 METAL STENTS FROM HIS GUM TO SINUS CAVITY., ORAL LEUKOPLAKIA SURGERY., HX OF COLON POLYPS. History of Any Multi-Drug Resistant Organisms: None Reported Past Surgical History: Cholecystectomy Additional Past Surgical History / Comment(s): kidney stones removed, UROLIFT., DENTAL PROCEDURE WITH METAL STENTS FROM GUMS TO SINUS CAVITY., ORAL LEUKOPLAKIA SURGERY, . Past Anesthesia/Blood Transfusion Reactions: No Reported Reaction Additional Past Anesthesia/Blood Transfusion Reaction / Comment(s): HX OF PASSING OUT WITH STARTING IV Past Psychological History: Anxiety Smoking Status: Former smoker Past Alcohol Use History: Occasional Past Drug Use History: None Reported - Past Family History Mother Family Medical History: No Reported History General Exam Limitations: no limitations General appearance: alert, in no apparent distress Head exam: Present: atraumatic, normocephalic, normal inspection Eye exam: Present: normal appearance, PERRL, EOMI. Absent: scleral icterus, conjunctival injection, periorbital swelling ENT exam: Present: normal exam, mucous membranes moist Neck exam: Present: normal inspection. Absent: tenderness, meningismus, lymphadenopathy Respiratory exam: Present: normal lung sounds bilaterally. Absent: respiratory distress, wheezes, rales, rhonchi, stridor Cardiovascular Exam: Present: regular rate, normal rhythm, normal heart sounds. Absent: systolic murmur, diastolic murmur, rubs, gallop, clicks GI/Abdominal exam: Present: soft, normal bowel sounds. Absent: distended, tenderness, guarding, rebound, rigid Extremities exam: Present: normal inspection, full ROM, normal capillary refill. Absent: tenderness, pedal edema, joint swelling, calf tenderness Back exam: Present: normal inspection Neurological exam: Present: alert, oriented X3, CN II-XII intact Psychiatric exam: Present: normal affect, normal mood Skin exam: Present: warm, dry, intact, normal color. Absent: rash Course Vital Signs 10/12/18 10/12/18 21:38 22:55 Temperature 97.5 F L Pulse Rate 66 60 Respiratory 18 18 Rate Blood Pressure 173/102 177/96 O2 Sat by Pulse 100 98 Oximetry - Reevaluation(s) Reevaluation #1: 10/12/18 23:35 Medical record is reviewed Reevaluation #2: 10/12/18 23:35 Patient's mildly improved with hydration Medical Decision Making - Medical Decision Making 73 male the ER for evaluation of not feeling well, severely low phosphorus, patient will be admitted for phosphorus replacement - Lab Data Result diagrams: 10/12/18 21:50 10/12/18 21:50 Lab Results 10/12/18 10/12/18 10/12/18 Range/Units 21:50 21:50 21:50 WBC 12.7 H (3.8-10.6) k/uL RBC 4.51 (4.30-5.90) m/uL Hgb 15.2 (13.0-17.5) gm/dL Hct 44.3 (39.0-53.0) % MCV 98.3 (80.0-100.0) fL MCH 33.6 (25.0-35.0) pg MCHC 34.2 (31.0-37.0) g/dL RDW 13.0 (11.5-15.5) % Plt Count 243 (150-450) k/uL Neutrophils % 82 % Lymphocytes % 10 % Monocytes % 5 % Eosinophils % 1 % Basophils % 0 % Neutrophils # 10.4 H (1.3-7.7) k/uL Lymphocytes # 1.3 (1.0-4.8) k/uL Monocytes # 0.7 (0-1.0) k/uL Eosinophils # 0.2 (0-0.7) k/uL Basophils # 0.0 (0-0.2) k/uL PT (9.0-12.0) sec INR (<1.2) APTT (22.0-30.0) sec Sodium 137 (137-145) mmol/L Potassium 4.6 (3.5-5.1) mmol/L Chloride 105 (98-107) mmol/L Carbon Dioxide 19 L (22-30) mmol/L Anion Gap 13 mmol/L BUN 17 (9-20) mg/dL Creatinine 0.93 (0.66-1.25) mg/dL Est GFR (CKD-EPI)AfAm >90 (>60 ml/min/1.73 sqM) Est GFR (CKD-EPI)NonAf 83 (>60 ml/min/1.73 sqM) Glucose 155 H (74-99) mg/dL Calcium 9.7 (8.4-10.2) mg/dL Phosphorus 1.1 L (2.5-4.5) mg/dL Magnesium 1.6 (1.6-2.3) mg/dL Total Bilirubin 1.3 (0.2-1.3) mg/dL AST 30 (17-59) U/L ALT 28 (21-72) U/L Alkaline Phosphatase 64 (38-126) U/L Total Creatine Kinase 67 (55-170) U/L CK-MB (CK-2) 0.7 (0.0-2.4) ng/mL CK-MB (CK-2) Rel Index 1.0 Troponin I <0.012 (0.000-0.034) ng/mL Total Protein 7.1 (6.3-8.2) g/dL Albumin 4.3 (3.5-5.0) g/dL Urine Color Urine Appearance (Clear) Urine pH (5.0-8.0) Ur Specific [place] (1.001-1.035) Urine Protein (Negative) Urine Glucose (UA) (Negative) Urine Ketones (Negative) Urine Blood (Negative) Urine Nitrite (Negative) Urine Bilirubin (Negative) Urine Urobilinogen (<2.0) mg/dL Ur Leukocyte Esterase (Negative) 10/12/18 10/12/18 Range/Units 21:50 22:57 WBC (3.8-10.6) k/uL RBC (4.30-5.90) m/uL Hgb (13.0-17.5) gm/dL Hct (39.0-53.0) % MCV (80.0-100.0) fL MCH (25.0-35.0) pg MCHC (31.0-37.0) g/dL RDW (11.5-15.5) % Plt Count (150-450) k/uL Neutrophils % % Lymphocytes % % Monocytes % % Eosinophils % % Basophils % % Neutrophils # (1.3-7.7) k/uL Lymphocytes # (1.0-4.8) k/uL Monocytes # (0-1.0) k/uL Eosinophils # (0-0.7) k/uL Basophils # (0-0.2) k/uL PT 11.5 (9.0-12.0) sec INR 1.1 (<1.2) APTT 23.1 (22.0-30.0) sec Sodium (137-145) mmol/L Potassium (3.5-5.1) mmol/L Chloride (98-107) mmol/L Carbon Dioxide (22-30) mmol/L Anion Gap mmol/L BUN (9-20) mg/dL Creatinine (0.66-1.25) mg/dL Est GFR (CKD-EPI)AfAm (>60 ml/min/1.73 sqM) Est GFR (CKD-EPI)NonAf (>60 ml/min/1.73 sqM) Glucose (74-99) mg/dL Calcium (8.4-10.2) mg/dL Phosphorus (2.5-4.5) mg/dL Magnesium (1.6-2.3) mg/dL Total Bilirubin (0.2-1.3) mg/dL AST (17-59) U/L ALT (21-72) U/L Alkaline Phosphatase (38-126) U/L Total Creatine Kinase (55-170) U/L CK-MB (CK-2) (0.0-2.4) ng/mL CK-MB (CK-2) Rel Index Troponin I (0.000-0.034) ng/mL Total Protein (6.3-8.2) g/dL Albumin (3.5-5.0) g/dL Urine Color Yellow Urine Appearance Clear (Clear) Urine pH 7.0 (5.0-8.0) Ur Specific [place] 1.008 (1.001-1.035) Urine Protein Negative (Negative) Urine Glucose (UA) Negative (Negative) Urine Ketones 2+ H (Negative) Urine Blood Negative (Negative) Urine Nitrite Negative (Negative) Urine Bilirubin Negative (Negative) Urine Urobilinogen <2.0 (<2.0) mg/dL Ur Leukocyte Esterase Negative (Negative) Disposition Clinical Impression: Hypophosphatemia, Dehydration, Weakness Disposition: ADMITTED IP TO THIS HOSP Condition: Fair Is patient prescribed a controlled substance at d/c from ED?: No Referrals: Marshall Robertson MD [Primary Care Provider] - 1-2 days
[2018-10-12 22:14] LABS: Albumin 4.3 g/dL (3.5-5.0); Anion Gap 13 mmol/L; Calcium 9.7 mg/dL (8.4-10.2); Carbon Dioxide 19 mmol/L (22-30); Chloride 105 mmol/L (98-107); Glucose 155 mg/dL (74-99); Sodium 137 mmol/L (137-145); Total Bilirubin 1.3 mg/dL (0.2-1.3); Total Protein 7.1 g/dL (6.3-8.2)
[2018-10-12 22:16] LABS: INR 1.1 (<1.2); Prothrombin Time 11.5 sec (9.0-12.0)
[2018-10-12 22:17] LABS: Partial Thromboplastin Time 23.1 sec (22.0-30.0); Potassium 4.6 mmol/L (3.5-5.1)
[2018-10-12 22:18] LABS: ALT 28 U/L (21-72); AST 30 U/L (17-59); Alkaline Phosphatase 64 U/L (38-126); Blood Urea Nitrogen 17 mg/dL (9-20); Creatine Kinase 67 U/L (55-170); Magnesium 1.6 mg/dL (1.6-2.3); Phosphorus 1.1 mg/dL (2.5-4.5)
[2018-10-12 22:31] LABS: Creatine Kinase MB 0.7 ng/mL (0.0-2.4); Troponin I <0.012 ng/mL (0.000-0.034)
[2018-10-12] MEDS ORDERED: diphenhydrAMINE 50 MG/ML 1 ML VIAL IVP STA (22:32)
[2018-10-12] MEDS ORDERED: ONDANSETRON 4 MG/2 ML VIAL IVP STA (22:32)
[2018-10-12] MEDS ORDERED: PANTOPRAZOLE 40 MG/10 ML VIAL IVP STA (22:32)
[2018-10-12 22:34] LABS: Basophils % (A) 0 %; Eosinophils # (A) 0.2 k/uL (0-0.7); Eosinophils % (A) 1 %; HCT 44.3 % (39.0-53.0); HGB 15.2 gm/dL (13.0-17.5); Lymphocytes # (A) 1.3 k/uL (1.0-4.8); Lymphocytes % (A) 10 %; MCH 33.6 pg (25.0-35.0); MCHC 34.2 g/dL (31.0-37.0); MCV 98.3 fL (80.0-100.0); Mean Platelet Volume 6.8; Monocytes # (A) 0.7 k/uL (0-1.0); Monocytes % (A) 5 %; Neutrophils # (A) 10.4 k/uL (1.3-7.7); Neutrophils % (A) 82 %; Platelet Count 243 k/uL (150-450); RBC 4.51 m/uL (4.30-5.90); WBC 12.7 k/uL (3.8-10.6)
[2018-10-12 23:10] LABS: Appearance,Urine Clear (Clear); Bilirubin,Urine Negative (Negative); Blood,Urine Negative (Negative); Color,Urine Yellow; Glucose,Urine (UA) Negative (Negative); Ketones,Urine 2+ (Negative); Leukocyte Esterase,Urine Negative (Negative); Nitrite,Urine Negative (Negative); Protein,Urine Negative (Negative); Specific Gravity,Urine 1.008 (1.001-1.035); Urobilinogen,Urine <2.0 mg/dL (<2.0)
[2018-10-12] MEDS ORDERED: SODIUM CHLORIDE 0.9% 1,000 ML IV ONE (23:32)
[2018-10-13 04:24] VITALS: BMI 25.7
[2018-10-13] MEDS ORDERED: CALCIUM ACETATE 667 MG CAP PO SCH (07:30)
--- NOTE | 2018-10-13 08:15 | P.GSCN ---
History of Present Illness Consult date: 10/13/18 History of present illness: CHIEF COMPLAINT: Colon screen HISTORY OF PRESENT ILLNESS: The patient is a 73-year-old male who presents for colon screen. Lower endoscopy was offered for further evaluation and management. PAST MEDICAL HISTORY: Please see list. PAST SURGICAL HISTORY: Please see list. MEDICATIONS: Please see list. ALLERGIES: Please see list. SOCIAL HISTORY: No illicit drug use FAMILY HISTORY: No reports of Crohn disease or ulcerative colitis. REVIEW OF ORGAN SYSTEMS: CONSTITUTIONAL: No reports of fevers or chills. PHYSICAL EXAM: VITAL SIGNS: Stable GENERAL: Well-developed pleasant in no acute distress. HEENT: No scleral icterus. Extraocular movements grossly intact. Moist buccal mucosa. NECK: Supple without lymphadenopathy. CHEST: Unlabored respirations. Equal bilateral excursions. CARDIOVASCULAR: Regular rate and rhythm. Distal 2+ pulses. ABDOMEN: Soft, nontender, nondistended. MUSCULOSKELETAL: No clubbing, cyanosis, or edema. ASSESSMENT: 1. Colon screen. PLAN: 1. 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 , PT HAS 2 METAL STENTS FROM HIS GUM TO SINUS CAVITY., ORAL LEUKOPLAKIA SURGERY., HX OF COLON POLYPS. History of Any Multi-Drug Resistant Organisms: None Reported Past Surgical History: Cholecystectomy Additional Past Surgical History / Comment(s): kidney stones removed, UROLIFT., DENTAL PROCEDURE WITH METAL STENTS FROM GUMS TO SINUS CAVITY., ORAL LEUKOPLAKIA SURGERY, . Past Anesthesia/Blood Transfusion Reactions: No Reported Reaction Additional Past Anesthesia/Blood Transfusion Reaction / Comm: HX OF PASSING OUT WITH STARTING IV Past Psychological History: Anxiety Smoking Status: Former smoker Past Alcohol Use History: Occasional Additional Past Alcohol Use History / Comment(s): QUIT SMOKING 35-37 YRS AGO., SMOKED 1/2 PPD., STARTED SMOKING AGE 17. Past Drug Use History: None Reported - Past Family History Mother Family Medical History: No Reported History Medications and Allergies Home Medications Medication Instructions Recorded Confirmed Type Aspirin 650 mg PO QID PRN 06/27/18 10/12/18 History L.acidoph,Paracasei, B.lactis 1 cap PO DAILY 06/27/18 10/12/18 History [Probiotic] Losartan Potassium [Cozaar] 100 mg PO DAILY 06/27/18 10/12/18 History Hydrochlorothiazide [Hydrodiuril] 25 mg PO DAILY PRN 10/12/18 10/12/18 History LORazepam [Ativan] 0.5 mg PO DAILY PRN 10/12/18 10/12/18 History Allergies Allergy/AdvReac Type Severity Reaction Status Date / Time lisinopril Allergy Unknown BODY Verified 10/12/18 21:50 ACHES, EXHAUSTION, PAIN amlodipine Allergy SEVERE LEG Verified 10/12/18 21:50 PAIN, "MESSES UP HIS THINKING" ciprofloxacin [From Cipro] AdvReac Unknown SLURRED Verified 10/12/18 21:50 SPEECH ezetimibe [From Zetia] AdvReac Unknown BODY ACHES Verified 10/12/18 21:50 ofloxacin [From Floxin] AdvReac Unknown SLURRED Verified 10/12/18 21:50 SPEECH hydrocodone [From [place]] AdvReac Stomach Verified 10/12/18 21:50 upset, constipation moxifloxacin HCl AdvReac TREMBLE , Verified 10/12/18 21:50 [From Avelox] LIGHTHEADED, WEAK fluoroquinolones Allergy Itching Uncoded 10/12/18 21:44 Surgical - Exam Vital Signs Temp Pulse Resp BP Pulse Ox 97.5 F L 66 18 173/102 100 10/12/18 21:38 10/12/18 21:38 10/12/18 21:38 10/12/18 21:38 10/12/18 21:38 Results - Labs 10/12/18 21:50 10/12/18 21:50 Abnormal Lab Results - Last 24 Hours (Table) 10/12/18 10/12/18 10/12/18 Range/Units 21:50 21:50 22:57 WBC 12.7 H (3.8-10.6) k/uL Neutrophils # 10.4 H (1.3-7.7) k/uL Carbon Dioxide 19 L (22-30) mmol/L Glucose 155 H (74-99) mg/dL Phosphorus 1.1 L (2.5-4.5) mg/dL Urine Ketones 2+ H (Negative) Diabetes panel 10/12/18 Range/Units 21:50 Sodium 137 (137-145) mmol/L Potassium 4.6 (3.5-5.1) mmol/L Chloride 105 (98-107) mmol/L Carbon Dioxide 19 L (22-30) mmol/L BUN 17 (9-20) mg/dL Creatinine 0.93 (0.66-1.25) mg/dL Glucose 155 H (74-99) mg/dL Calcium 9.7 (8.4-10.2) mg/dL AST 30 (17-59) U/L ALT 28 (21-72) U/L Alkaline Phosphatase 64 (38-126) U/L Total Protein 7.1 (6.3-8.2) g/dL Albumin 4.3 (3.5-5.0) g/dL Calcium panel 10/12/18 Range/Units 21:50 Calcium 9.7 (8.4-10.2) mg/dL Phosphorus 1.1 L (2.5-4.5) mg/dL Albumin 4.3 (3.5-5.0) g/dL Pituitary panel 10/12/18 Range/Units 21:50 Sodium 137 (137-145) mmol/L Potassium 4.6 (3.5-5.1) mmol/L Chloride 105 (98-107) mmol/L Carbon Dioxide 19 L (22-30) mmol/L BUN 17 (9-20) mg/dL Creatinine 0.93 (0.66-1.25) mg/dL Glucose 155 H (74-99) mg/dL Calcium 9.7 (8.4-10.2) mg/dL Adrenal panel 10/12/18 Range/Units 21:50 Sodium 137 (137-145) mmol/L Potassium 4.6 (3.5-5.1) mmol/L Chloride 105 (98-107) mmol/L Carbon Dioxide 19 L (22-30) mmol/L BUN 17 (9-20) mg/dL Creatinine 0.93 (0.66-1.25) mg/dL Glucose 155 H (74-99) mg/dL Calcium 9.7 (8.4-10.2) mg/dL Total Bilirubin 1.3 (0.2-1.3) mg/dL AST 30 (17-59) U/L ALT 28 (21-72) U/L Alkaline Phosphatase 64 (38-126) U/L Total Protein 7.1 (6.3-8.2) g/dL Albumin 4.3 (3.5-5.0) g/dL
[2018-10-13 09:00] LABS: ALT 32 U/L (21-72); AST 20 U/L (17-59); Albumin 3.9 g/dL (3.5-5.0); Alkaline Phosphatase 58 U/L (38-126); Anion Gap 11 mmol/L; Blood Urea Nitrogen 16 mg/dL (9-20); Calcium 9.1 mg/dL (8.4-10.2); Carbon Dioxide 21 mmol/L (22-30); Chloride 110 mmol/L (98-107); Glucose 104 mg/dL (74-99); Phosphorus 2.8 mg/dL (2.5-4.5); Potassium 4.5 mmol/L (3.5-5.1); Sodium 142 mmol/L (137-145); Total Bilirubin 1.2 mg/dL (0.2-1.3); Total Protein 6.2 g/dL (6.3-8.2)
[2018-10-13 09:02] LABS: Basophils % (A) 0 %; Eosinophils # (A) 0.1 k/uL (0-0.7); Eosinophils % (A) 2 %; HCT 42.3 % (39.0-53.0); HGB 14.3 gm/dL (13.0-17.5); Lymphocytes # (A) 1.7 k/uL (1.0-4.8); Lymphocytes % (A) 19 %; MCH 33.8 pg (25.0-35.0); MCHC 33.8 g/dL (31.0-37.0); MCV 100.2 fL (80.0-100.0); Mean Platelet Volume 7.4; Monocytes # (A) 0.5 k/uL (0-1.0); Monocytes % (A) 6 %; Neutrophils # (A) 6.3 k/uL (1.3-7.7); Neutrophils % (A) 72 %; Platelet Count 227 k/uL (150-450); RBC 4.23 m/uL (4.30-5.90); RDW 13.3 % (11.5-15.5); WBC 8.7 k/uL (3.8-10.6)
[2018-10-13] MEDS ORDERED: LIDOCAINE 1% INJ 10MG/ML (20 ML MDV) ONE (09:32)
[2018-10-13] MEDS ORDERED: GLYCOPYRROLATE 0.2 MG/ML 2 ML VIAL ONE (09:32)
[2018-10-13] MEDS ORDERED: PROPOFOL 10 MG/ML 20 ML VIAL IV ONE (09:32)
[2018-10-13] MEDS ORDERED: IV FLUID CONTINUATION 1,000 ML IV ONE (09:48)
--- NOTE | 2018-10-13 10:09 | P.PCN ---
Date of Procedure: 10/13/18 Description of Procedure: PREOPERATIVE DIAGNOSIS: Personal history of colon polyps Dehydration POSTOPERATIVE DIAGNOSIS: Personal history of colon polyps. Diverticulosis, sigmoid Mid transverse colon polyps OPERATION: Colonoscopy to the ileocecal valve and appendiceal orifice. Colonoscopy with multiple cold forceps biopsies. SURGEON: Anais De La Garza MD. ANESTHESIA: MAC. INDICATIONS: The patient is a 73-year-old male who presented with past history of colon polyps. Last colonoscopy 5 years ago. He had troubles with his prep and had been admitted for severe dehydration. After IV fluid hydration, he was prepared for colonoscopy as previously scheduled. Benefits and risks were described and informed consent was obtained. DESCRIPTION OF PROCEDURE: The patient had undergone Gatorade, MiraLAX and Dulcolax prep. He had been brought into the operating room and laid in the left lateral decubitus position. After adequate intravenous sedation, the rectum was examined with 2% lidocaine jelly. No external hemorrhoids were encountered. The rectal tone was within normal limits. No lesions were palpated in the rectal vault. The prostate was unremarkable. An Olympus colonoscope was advanced until the ileocecal valve and appendiceal orifice were clearly viewed. The prep was fair with visualization of the mucosal folds. The scope was removed with visualization of each mucosal fold. Moderate sigmoid diverticulosis was encountered. Mid transverse colon polyps 2, 4-5 mm was cold forceps biopsy to completion. Mild inflammation of the sigmoid colon was identified with diverticulitis. Retroflexion of the scope demonstrated grade 1 internal hemorrhoids without active bleeding or inflammation. The colon was desufflated. The patient had tolerated the procedure well. Withdrawal time was over 6 minutes. FINDINGS: Internal hemorrhoids, grade 1 No external hemorrhoids, grade 2. No arteriovenous malformations. Moderate sigmoid diverticulosis was encountered with mild diverticulitis. Removal of 2 polyps: - Mid transverse colon polyps 2, 4-5 mm was cold forceps biopsy to completion. RECOMMENDATIONS: Repeat colonoscopy in 5 years, 2023
--- NOTE | 2018-10-13 11:17 | P.HPIM ---
History of Present Illness 73-year-old male was at home prepping for colonoscopy developed severe dizziness to the point that he was unable to rise from the toilet EMS was called was brought to the emergency room. In the emergency room was found to have low on phosphorus this has corrected. Patient continues with dizziness CT the brain ordered patient has history of a CVA/TIAs diabetes and hypertension Review of Systems Constitutional: Reports fatigue, Reports weakness Neurological: Reports vertigo, Reports visual changes Past Medical History Past Medical History: CVA/TIA, Diabetes Mellitus, GERD/Reflux, Hypertension, Osteoarthritis (OA), Pneumonia Additional Past Medical History / Comment(s): MULTIPLE TIA'S (7) - RIGHT SIDED WEAKNESS RESOLVED.- SLIGHT MEMORY IMPAIRMENT., VARICOSE VEINS, KIDNEY STONES, LICHEN PLANUS ON HIS LEGS, GARETH MARTINEZ.,DIABETES RESOLVED WITH WT LOSS., NOW HAS EPISODES OF HYPOGLYCEMIA., PINCHED NERVE NECK WITH PAIN IN NECK & SHOULDERS.,RECEIVING INJECTIONS FOR NECK PAIN, RIGHT ARM GOES NUMB AND A COUPLE FINGERS ARE NUMB., TORN RIGHT ROTATOR CUFF., BPH WITH UROLIFT PROCEDURE. , PT HAS 2 METAL STENTS FROM HIS GUM TO SINUS CAVITY., ORAL LEUKOPLAKIA SURGERY., HX OF COLON POLYPS. History of Any Multi-Drug Resistant Organisms: None Reported Past Surgical History: Cholecystectomy Additional Past Surgical History / Comment(s): kidney stones removed, UROLIFT., DENTAL PROCEDURE WITH METAL STENTS FROM GUMS TO SINUS CAVITY., ORAL LEUKOPLAKIA SURGERY, . Past Anesthesia/Blood Transfusion Reactions: No Reported Reaction Additional Past Anesthesia/Blood Transfusion Reaction / Comment(s): HX OF PASSING OUT WITH STARTING IV Past Psychological History: Anxiety Smoking Status: Former smoker Past Alcohol Use History: Occasional Additional Past Alcohol Use History / Comment(s): QUIT SMOKING 35-37 YRS AGO., SMOKED 1/2 PPD., STARTED SMOKING AGE 17. Past Drug Use History: None Reported - Past Family History Mother Family Medical History: No Reported History Medications and Allergies Home Medications Medication Instructions Recorded Confirmed Type Aspirin 650 mg PO QID PRN 06/27/18 10/12/18 History L.acidoph,Paracasei, B.lactis 1 cap PO DAILY 06/27/18 10/12/18 History [Probiotic] Losartan Potassium [Cozaar] 100 mg PO DAILY 06/27/18 10/12/18 History Hydrochlorothiazide [Hydrodiuril] 25 mg PO DAILY PRN 10/12/18 10/12/18 History LORazepam [Ativan] 0.5 mg PO DAILY PRN 10/12/18 10/12/18 History Allergies Allergy/AdvReac Type Severity Reaction Status Date / Time lisinopril Allergy Unknown BODY Verified 10/12/18 21:50 ACHES, EXHAUSTION, PAIN amlodipine Allergy SEVERE LEG Verified 10/12/18 21:50 PAIN, "MESSES UP HIS THINKING" ciprofloxacin [From Cipro] AdvReac Unknown SLURRED Verified 10/12/18 21:50 SPEECH ezetimibe [From Zetia] AdvReac Unknown BODY ACHES Verified 10/12/18 21:50 ofloxacin [From Floxin] AdvReac Unknown SLURRED Verified 10/12/18 21:50 SPEECH hydrocodone [From [place]] AdvReac Stomach Verified 10/12/18 21:50 upset, constipation moxifloxacin HCl AdvReac TREMBLE , Verified 10/12/18 21:50 [From Avelox] LIGHTHEADED, WEAK fluoroquinolones Allergy Itching Uncoded 10/12/18 21:44 Physical Exam Vitals: Vital Signs Temp Pulse Pulse Resp BP BP Pulse Ox 10/13/18 10:19 97.9 F 63 16 159/84 98 10/13/18 08:00 63 16 10/13/18 07:00 98.4 F 59 L 18 154/74 96 10/13/18 00:17 98.6 F 72 18 116/74 100 10/13/18 00:09 98.1 F 63 18 162/89 95 10/12/18 22:55 60 18 177/96 98 10/12/18 21:38 97.5 F L 66 18 173/102 100 Intake and Output 10/12/18 10/13/18 10/13/18 22:59 06:59 14:59 Intake Total 300 Balance 300 Intake: IV 300 Other: Weight 83.915 kg - Constitutional General appearance: mild distress - EENT Eyes: PERRLA Ears: bilateral: normal - Neck Neck: normal ROM - Respiratory Respiratory: bilateral: CTA - Cardiovascular Rhythm: regular - Gastrointestinal General gastrointestinal: soft - Integumentary Integumentary: normal - Neurologic Neurologic: CNII-XII intact - Musculoskeletal Musculoskeletal: generalized weakness - Psychiatric Psychiatric: A&O x's 3, appropriate affect, intact judgment & insight Results CBC & Chem 7: 10/13/18 08:34 10/13/18 08:34 Labs: Abnormal Lab Results - Last 24 Hours (Table) 10/12/18 10/12/18 10/12/18 Range/Units 21:50 21:50 22:57 WBC 12.7 H (3.8-10.6) k/uL RBC (4.30-5.90) m/uL MCV (80.0-100.0) fL Neutrophils # 10.4 H (1.3-7.7) k/uL Chloride (98-107) mmol/L Carbon Dioxide 19 L (22-30) mmol/L Glucose 155 H (74-99) mg/dL Phosphorus 1.1 L (2.5-4.5) mg/dL Total Protein (6.3-8.2) g/dL Urine Ketones 2+ H (Negative) 10/13/18 10/13/18 Range/Units 08:34 08:34 WBC (3.8-10.6) k/uL RBC 4.23 L (4.30-5.90) m/uL MCV 100.2 H (80.0-100.0) fL Neutrophils # (1.3-7.7) k/uL Chloride 110 H (98-107) mmol/L Carbon Dioxide 21 L (22-30) mmol/L Glucose 104 H (74-99) mg/dL Phosphorus (2.5-4.5) mg/dL Total Protein 6.2 L (6.3-8.2) g/dL Urine Ketones (Negative) Thrombosis Risk Factor Assmnt - Choose All That Apply Each Factor Represents 1 point: Medical pt on bed rest Thrombosis Risk Factor Assessment Total Risk Factor Score: 1 Thrombosis Risk Factor Assessment Level: Low Risk Assessment and Plan Plan: Assessment Dehydration hypophosphatemia Weakness Vertigo History of CVA/TIA Diabetes type 2 GERD Hypertension Osteoarthritis with chronic neck pain post colonoscopy Plan Continue hydration CT the brain
--- NOTE | 2018-10-13 12:14 | CT ---
EXAMINATION TYPE: CT brain wo con DATE OF EXAM: 10/13/2018 COMPARISON: 04/13/19 HISTORY: vertigo CT DLP: 1044.4 mGycm Automated exposure control for dose reduction was used. TECHNIQUE: CT scan of the head is performed without contrast. FINDINGS: There is no acute intracranial hemorrhage or midline shift identified. There is diffuse v entricular and sulcal prominence consistent with diffuse age-related cerebral atrophy. There is low- attenuation in the periventricular white matter consistent with chronic small vessel ischemic change. The globes are intact and the visualized sinuses are clear. There is an old fracture of the right l kb papyracea, unchanged. IMPRESSION: No acute intracranial hemorrhage or midline shift. There is diffuse age-related cerebra l atrophy and chronic small vessel ischemic change noted.
[2018-10-13] MEDS: LOSARTAN 50 MG TAB PO SCH (12:20)
[2018-10-13] MEDS: PANTOPRAZOLE 40 MG/10 ML VIAL IVP SCH (12:20)
[2018-10-13] MEDS: ONDANSETRON 4 MG/2 ML VIAL IVP PRN (17:00)
[2018-10-13] MEDS: LORazepam 0.5 MG TAB PO PRN (23:34)
[2018-10-14] MEDS: LOSARTAN 50 MG TAB PO SCH (09:26)
[2018-10-14] MEDS: ACETAMINOPHEN TAB 325 MG TAB PO PRN (09:27)
[2018-10-14] MEDS: LACTOBACILLUS ACIDOPH & BULGAR 1 EACH PACKET PO SCH (09:27)
[2018-10-14] MEDS: PANTOPRAZOLE 40 MG/10 ML VIAL IVP SCH (09:29)
[2018-10-14] MEDS: ONDANSETRON 4 MG/2 ML VIAL IVP PRN (09:29)
--- NOTE | 2018-10-14 13:06 | P.PN ---
Subjective Progress Note Date: 10/14/18 HPI: Patient reports no problems from his colonoscopy. He has bradycardia and is pending evaluation with cardiology. Will sign off. Objective - Vital Signs Vital signs: Vital Signs Temp 97.6 F 10/14/18 07:00 Pulse 52 L 10/14/18 07:00 Resp 14 10/14/18 07:00 BP 128/78 10/14/18 07:00 Pulse Ox 96 10/14/18 07:00 Intake & Output 10/13/18 10/14/18 10/14/18 18:59 06:59 18:59 Intake Total 700 118 400 Output Total 200 400 Balance 500 -282 400 Intake: IV 300 Intake, IV Titration 400 Amount Sodium Chloride 0.9% 1, 400 000 ml @ 100 mls/hr IV . Q10H ONE Rx#:[id number] Oral 118 400 Output: Urine 200 400 Other: Voiding Method Urinal Urinal # Voids 1 - Labs CBC & Chem 7: 10/13/18 08:34 10/13/18 08:34
--- NOTE | 2018-10-14 13:39 | P.PN ---
Subjective On-call hospitalist covering for Dr. Robertson This is a pleasant 73 years old male with past medical history of diabetes mellitus, hypertension, GERD, multiple CVA/TIA, memory impairment, mild, lichen planus on his legs, chronic neck pain, BPH he presents this time with dizziness 2-3 days duration. As per patient patient describes the dizziness as the room is spinning around him associated with this equilibrium and inability to stand up from sitting position however he gained strength and he can moves his legs strongly and arms as well with no difficulty but still complaining from dizziness. Associated some nausea vomiting which is resolved now, however patient denies headache no trauma no neck pain. No weakness in arm or legs. No abnormal sensation. No double vision or difficulty talking or swallowing. Patient denies chest pain or dyspnea. No abdominal pain. No problem with bowel movement or urine ability. Patient at baseline he works out twice in the gym and he walks a lot. Over the last 2 weeks he had 10 episodes of sweating that started due to his low sugar but his sugar was normal when checked. He has precancerous lesion taking up from his mouth about couple weeks ago. And he has injections and the spine for his chronic neck pain. Patient denies tinnitus or hearing loss. Patient states that he has 2 stents in hishowever he had MRI of the cervical spines about 2 months ago. Patient is severely claustrophobic and he asked to be sedated prior to do the MRI. Xanax and Ativan of the heart before the MRI and he agrees to do it while inpatient. On admission he has mild leukocytosis came back to normal at 6.3K Fran of CBC and BMP was unremarkable. Liver enzymes within normal limits. Urinalysis was not suspicious for infection. Vital sign showing he is afebrile, bradycardic, saturating 96% on room air. CT of the head is negative for acute process however showing chronic cerebral atrophy and chronic ischemic changes. Patient has been evaluated by surgical team status post colonoscopy with 2 polyps removed, showing diverticulosis. CONSTITUTIONAL: No fever, no malaise, no fatigue. HEENT: No recent visual problems or hearing problems. Denied any sore throat. CARDIOVASCULAR: No orthopnea, PND, no palpitations, no syncope. PULMONARY: No shortness of breath, no cough, no hemoptysis. GASTROINTESTINAL: No diarrhea, no nausea, no vomiting, no abdominal pain. Normoactive bowel sounds. NEUROLOGICAL: No headaches, no weakness, no numbness. HEMATOLOGICAL: Denies any bleeding or petechiae. GENITOURINARY: Denies any burning micturition, frequency, or urgency. MUSCULOSKELETAL/RHEUMATOLOGICAL: Denies any joint pain, swelling, or any muscle pain. ENDOCRINE: Denies any polyuria or polydipsia. Medication: Zofran, Protonix, Ativan, low Zartan, lactobacillus, Tylenol. Objective - Vital Signs Vital signs: Vital Signs Temp 97.6 F 10/14/18 07:00 Pulse 52 L 10/14/18 07:00 Resp 14 10/14/18 07:00 BP 128/78 10/14/18 07:00 Pulse Ox 96 10/14/18 07:00 Intake & Output 10/13/18 10/14/18 10/14/18 18:59 06:59 18:59 Intake Total 700 118 400 Output Total 200 400 Balance 500 -282 400 Intake: IV 300 Intake, IV Titration 400 Amount Sodium Chloride 0.9% 1, 400 000 ml @ 100 mls/hr IV . Q10H ONE Rx#:[id number] Oral 118 400 Output: Urine 200 400 Other: Voiding Method Urinal Urinal # Voids 1 - Exam GENERAL: The patient is alert and oriented x3, not in any acute distress. Well developed, well nourished. HEENT: Pupils are round and equally reacting to light. EOMI. No scleral icterus. No conjunctival pallor. Normocephalic, atraumatic. No pharyngeal erythema. No thyromegaly. CARDIOVASCULAR: S1 and S2 present. No murmurs, rubs, or gallops. PULMONARY: Chest is clear to auscultation, no wheezing or crackles. ABDOMEN: Soft, nontender, nondistended, normoactive bowel sounds. No palpable organomegaly. MUSCULOSKELETAL: No joint swelling or deformity. EXTREMITIES: No cyanosis, clubbing, or pedal edema. -NEUROLOGICAL: Gross neurological examination did not reveal any focal deficits. He has left nystagmus, strength is 5/5 in all 4 extremities, sensation is intact. SKIN: No rashes. - Labs CBC & Chem 7: 10/13/18 08:34 10/13/18 08:34 Assessment and Plan Assessment: Dizziness, looks more vertigo's with disequilibrium History of multiple TIA, Bradycardia History of coronary artery disease Hypophosphatemia, phosphorus was 1.1 on admission. corrected Lichen planus on his legs Chronic neck pain History of BPH History of diabetes mellitus Essential hypertension History of GERD Plan: This is a pleasant 73 years old male who presents because of dizziness is vertigo with nystagmus. CT of the brain was negative. Labs was unremarkable. Call cardiology consult. We'll do an MRI of the brain Labs and medication were reviewed. Unfortunately there is no neurologist in this hospital currently. Continue same treatment. Continue with symptomatic treatment. Resume home medication. Monitor lytes and vitals. DVT and GI prophylaxis. Further recommendations of the clinical course of the patient DVT prophylaxis: Subcutaneous heparin GI Prophylaxis: Pepcid PT/OT: Pending Prognosis is guarded
[2018-10-14] MEDS ORDERED: ALPRAZolam 0.5 MG TAB PO STA (14:52)
[2018-10-14] MEDS: LORazepam 0.5 MG TAB PO PRN (21:16)
[2018-10-15] MEDS ORDERED: MECLIZINE 25 MG TAB PO PRN (00:36)
[2018-10-15] MEDS ORDERED: FAMOTIDINE 20 MG/2 ML VIAL IV SCH (09:00)
[2018-10-15 10:00] LABS: Basophils % (A) 0 %; Eosinophils # (A) 0.1 k/uL (0-0.7); Eosinophils % (A) 2 %; HCT 42.3 % (39.0-53.0); HGB 14.7 gm/dL (13.0-17.5); Lymphocytes # (A) 1.3 k/uL (1.0-4.8); Lymphocytes % (A) 19 %; MCH 33.8 pg (25.0-35.0); MCHC 34.8 g/dL (31.0-37.0); MCV 97.2 fL (80.0-100.0); Mean Platelet Volume 7.3; Monocytes # (A) 0.4 k/uL (0-1.0); Monocytes % (A) 5 %; Neutrophils % (A) 72 %; Platelet Count 228 k/uL (150-450); RBC 4.36 m/uL (4.30-5.90); RDW 13.1 % (11.5-15.5); WBC 6.9 k/uL (3.8-10.6)
[2018-10-15 10:17] LABS: Anion Gap 10 mmol/L; Blood Urea Nitrogen 15 mg/dL (9-20); Calcium 9.6 mg/dL (8.4-10.2); Carbon Dioxide 22 mmol/L (22-30); Chloride 109 mmol/L (98-107); Cholesterol 185 mg/dL (<200); Glucose 137 mg/dL (74-99); HDL Cholesterol 32 mg/dL (40-60); LDL Cholesterol,Calculated 94 mg/dL (0-99); Potassium 3.7 mmol/L (3.5-5.1); Sodium 141 mmol/L (137-145); Triglycerides 294 mg/dL (<150)
[2018-10-15] MEDS: HEPARIN SODIUM,PORCINE 5,000 UNIT/ML 1 ML VIAL SQ SCH ×2 (10:28→21:29)
[2018-10-15] MEDS: PANTOPRAZOLE 40 MG TABLET PO SCH (10:30)
[2018-10-15] MEDS: LACTOBACILLUS ACIDOPH & BULGAR 1 EACH PACKET PO SCH (10:32)
[2018-10-15] MEDS: LOSARTAN 50 MG TAB PO SCH (10:34)
[2018-10-15] MEDS: ASPIRIN 81 MG PO SCH (10:42)
[2018-10-15] MEDS: LORazepam 0.5 MG TAB PO PRN ×2 (10:56→21:30)
--- NOTE | 2018-10-15 12:01 | MR ---
EXAMINATION TYPE: MR brain wo con DATE OF EXAM: 10/15/2018 11:46 AM COMPARISON: NONE HISTORY: vertihgo with left nystagmus FINDINGS: The ventricles, basal cisterns and sulci overlying the cerebral convexities are mildly to moderately enlarged. There is evidence of mild periventricular white matter ischemic demyelination. Remote deep white matter insults are also noted. No acute edema is seen on diffusion weighted imaging. There is no evidence for midline shift or mass effect. Acute intracranial hemorrhage or extra-axial collection is not evident. Mild chronic paranasal sinusitis. Mastoid air cells are well-aerated. IMPRESSION: Age-related atrophic and chronic small vessel ischemic change. No acute intracranial process at this time.
--- NOTE | 2018-10-15 14:43 | P.CRDCN ---
History of Present Illness Consult date: 10/15/18 Requesting physician: Marshall Robertson Reason for Consult (text): Bradycardia Chief complaint: Dizziness and weakness History of present illness: This is a 73-year-old gentleman who follows regularly with Dr. Jeff in the office. He has a known history of diabetes, hypertension, hyperlipidemia, prior kidney stones, history of TIA in the past. Patient also states he had a cardiac catheterization in the past which did not reveal any significant obstructive coronary artery disease he was told at that time to have a blood clot, he did not require any intervention. Patient was taking a bowel prep at home in preparation for colonoscopy, he states that while he was taking the prep, he would get up to go to the bathroom and become extremely dizzy and lightheaded. In spite of that he attempted to take further glasses of it, he became extremely dizzy and had an episode of severe vomiting. Subsequent to that he tried to get himself up off the toilet that his legs were so weak he couldn't move. For this reason EMS was called. According to the patient, he has been noticing some intermittent symptoms of shortness of breath when he exerts himself minimally. He works out several times a week, and walks 3 miles a day. Blood pressure on arrival here 173/102, heart rate in the 60s, temperature 97.5, 100% on room air. Blood pressure this morning 104/50 with a heart rate in the 50s, temperature 98.2, 97% on room air. His EKG performed on arrival here showed a normal sinus rhythm with a heart rate in the 60s. CAT scan of the brain did not reveal any acute intracranial hemorrhage or midline shift. He did undergo the colonoscopy which revealed internal hemorrhoids, moderate sigmoid diverticulosis with mild diverticulitis, removal of 2 polyps. Patient also underwent an MRI of the brain which did not reveal any acute intracranial process. White blood cell count on arrival 12.7, 6.9 this morning , hemoglobin 14.7, platelet count 228. On admission sodium 137, potassium 4.6, chloride 105, carbon dioxide 19, BUN 17 and creatinine 0.9. Blood glucose on arrival 155, phosphorus 1.1. Magnesium 1.6. Troponin 0.012. Cholesterol 185, triglycerides 294, HDL 32 and LDL 94. TSH level is normal. The patient's home medications included Cozaar 100 mg daily, Ativan when necessary, probiotic, hydrodiuril shich the patient states he only takes a couple times a week. Echocardiogram with Doppler study was performed in 2015 which revealed a normal left ventricular systolic function, we will repeat an echo on this admission. Patient has been having further episodes of vomiting here, with associated symptoms of dizziness. Cardiology consultation was requested because of episodes of heart rate in the 40s. Past Medical History Past Medical History: CVA/TIA, Diabetes Mellitus, GERD/Reflux, Hypertension, Osteoarthritis (OA), Pneumonia Additional Past Medical History / Comment(s): MULTIPLE TIA'S (7) - RIGHT SIDED WEAKNESS RESOLVED.- SLIGHT MEMORY IMPAIRMENT., VARICOSE VEINS, KIDNEY STONES, LICHEN PLANUS ON HIS LEGS, GARETH MARTINEZ.,DIABETES RESOLVED WITH WT LOSS., NOW HAS EPISODES OF HYPOGLYCEMIA., PINCHED NERVE NECK WITH PAIN IN NECK & SHOULDERS.,RECEIVING INJECTIONS FOR NECK PAIN, RIGHT ARM GOES NUMB AND A COUPLE FINGERS ARE NUMB., TORN RIGHT ROTATOR CUFF., BPH WITH UROLIFT PROCEDURE. , PT HAS 2 METAL STENTS FROM HIS GUM TO SINUS CAVITY., ORAL LEUKOPLAKIA SURGERY., HX OF COLON POLYPS. History of Any Multi-Drug Resistant Organisms: None Reported Past Surgical History: Cholecystectomy Additional Past Surgical History / Comment(s): kidney stones removed, UROLIFT., DENTAL PROCEDURE WITH METAL STENTS FROM GUMS TO SINUS CAVITY., ORAL LEUKOPLAKIA SURGERY, . Past Anesthesia/Blood Transfusion Reactions: No Reported Reaction Additional Past Anesthesia/Blood Transfusion Reaction / Comment(s): HX OF PASSING OUT WITH STARTING IV Past Psychological History: Anxiety Smoking Status: Former smoker Past Alcohol Use History: Occasional Additional Past Alcohol Use History / Comment(s): QUIT SMOKING 35-37 YRS AGO., SMOKED 1/2 PPD., STARTED SMOKING AGE 17. Past Drug Use History: None Reported - Past Family History Mother Family Medical History: No Reported History Medications and Allergies Home Medications Medication Instructions Recorded Confirmed Type Aspirin 650 mg PO QID PRN 06/27/18 10/12/18 History L.acidoph,Paracasei, B.lactis 1 cap PO DAILY 06/27/18 10/12/18 History [Probiotic] Losartan Potassium [Cozaar] 100 mg PO DAILY 06/27/18 10/12/18 History Hydrochlorothiazide [Hydrodiuril] 25 mg PO DAILY PRN 10/12/18 10/12/18 History LORazepam [Ativan] 0.5 mg PO DAILY PRN 10/12/18 10/12/18 History Allergies Allergy/AdvReac Type Severity Reaction Status Date / Time lisinopril Allergy Unknown BODY Verified 10/12/18 21:50 ACHES, EXHAUSTION, PAIN amlodipine Allergy SEVERE LEG Verified 10/12/18 21:50 PAIN, "MESSES UP HIS THINKING" ciprofloxacin [From Cipro] AdvReac Unknown SLURRED Verified 10/12/18 21:50 SPEECH ezetimibe [From Zetia] AdvReac Unknown BODY ACHES Verified 10/12/18 21:50 ofloxacin [From Floxin] AdvReac Unknown SLURRED Verified 10/12/18 21:50 SPEECH hydrocodone [From [place]] AdvReac Stomach Verified 10/12/18 21:50 upset, constipation moxifloxacin HCl AdvReac TREMBLE , Verified 10/12/18 21:50 [From Avelox] LIGHTHEADED, WEAK fluoroquinolones Allergy Itching Uncoded 10/12/18 21:44 Physical Exam Vitals: Vital Signs Temp Pulse Resp BP Pulse Ox 10/15/18 10:44 54 L 10/15/18 07:00 98.2 F 49 L 12 104/57 97 10/15/18 00:14 97.8 F 45 L 15 116/59 95 10/14/18 19:06 98.5 F 46 L 15 156/81 96 10/14/18 15:00 97.6 F 50 L 16 159/77 96 Intake and Output 10/14/18 10/15/18 10/15/18 22:59 06:59 14:59 Intake Total 200 Output Total 200 150 Balance -200 50 Intake: Oral 200 Output: Urine 200 150 Other: Voiding Method Urinal # Voids 2 PHYSICAL EXAMINATION: GENERAL: 73-year-old gentleman in no acute distress at the time of my examination HEENT: Head is atraumatic, normocephalic. Pupils equal, round. Sclera anicteric. Conjunctiva are clear. Mucous membranes of the mouth are moist. Neck is supple. There is no elevated jugular venous pressure. No carotid bruit is heard. HEART EXAMINATION: Heart S1, S2 normal. No murmur or gallop heard. CHEST EXAMINATION: Lungs are clear to auscultation and precussion. No chest wall tenderness is noted on palpation or with deep breathing. ABDOMEN: Soft, nontender. Bowel sounds are heard. No organomegaly noted. EXTREMITIES: 2+ peripheral pulses with no evidence of peripheral edema and no calf tenderness noted. NEUROLOGIC patient is awake, alert and oriented 3. . Results 10/15/18 09:26 10/15/18 09:41 Lipids 10/15/18 Range/Units 09:41 Triglycerides 294 H (<150) mg/dL Cholesterol 185 (<200) mg/dL HDL Cholesterol 32 L (40-60) mg/dL CBC 10/15/18 Range/Units 09:26 WBC 6.9 (3.8-10.6) k/uL RBC 4.36 (4.30-5.90) m/uL Hgb 14.7 (13.0-17.5) gm/dL Hct 42.3 (39.0-53.0) % Plt Count 228 (150-450) k/uL Comprehensive Metabolic Panel 10/15/18 Range/Units 09:41 Sodium 141 (137-145) mmol/L Potassium 3.7 (3.5-5.1) mmol/L Chloride 109 H (98-107) mmol/L Carbon Dioxide 22 (22-30) mmol/L BUN 15 (9-20) mg/dL Creatinine 0.87 (0.66-1.25) mg/dL Glucose 137 H (74-99) mg/dL Calcium 9.6 (8.4-10.2) mg/dL Current Medications Generic Name Dose Route Start Last Admin Trade Name Freq PRN Reason Stop Dose Admin Acetaminophen 650 mg 10/14/18 09:14 10/14/18 09:27 Tylenol Tab PO 650 mg Q4HR PRN Administration Fever and/ or Mild Pain Aspirin 81 mg 10/15/18 09:45 10/15/18 10:42 Aspirin PO 81 mg DAILY BANDAR Administration Famotidine 20 mg 10/15/18 09:00 10/15/18 10:29 Pepcid IV 20 mg Q12HR BANDAR Administration Heparin Sodium (Porcine) 5,000 unit 10/15/18 09:00 10/15/18 10:28 Heparin SQ 5,000 unit Q12HR BANDAR Administration Lactobacillus Acidoph/Bulgaricus 1 each 10/14/18 09:00 10/15/18 10:32 Lactinex PO 1 each DAILY BANDAR Administration Lorazepam 0.5 mg 10/13/18 10:10 10/15/18 10:56 Ativan PO 0.5 mg DAILY PRN Administration Anxiety Losartan Potassium 100 mg 10/13/18 10:15 10/15/18 10:34 Cozaar PO Not Given DAILY BANDAR Meclizine HCl 25 mg 10/15/18 00:36 Antivert PO BID PRN Vertigo Ondansetron HCl 4 mg 10/12/18 23:34 10/14/18 09:29 Zofran IVP 4 mg Q6HR PRN Administration Nausea And Vomiting Pantoprazole Sodium 40 mg 10/15/18 07:30 10/15/18 10:30 Protonix PO 40 mg [id number] BANDAR Administration Intake and Output 10/14/18 10/15/18 10/15/18 22:59 06:59 14:59 Intake Total 200 Output Total 200 150 Balance -200 50 Intake: Oral 200 Output: Urine 200 150 Other: Voiding Method Urinal # Voids 2 10/15/18 09:26 10/15/18 09:41 EKG Interpretations (text) EKG shows normal sinus rhythm with no acute changes. Assessment and Plan Plan: Assessment and plan #1 dizziness with associated vomiting episodes. #2 history of multiple TIAs #3 bradycardia, for the majority of time the patient's heart rate is in the 50s to 60s, there is some documented heart rate in the 40s. #4 diabetes #5 hypertension #6 hyperlipidemia #7 GERD #8 weakness, could be secondary to several episodes of vomiting as well as taking the bowel prep. Plan We will obtain an echocardiogram with Doppler study. Administer IV fluids to the patient. Check orthostatic heart rate and blood pressure every shift. Continue to monitor for any significant bradycardia arrhythmias. TSH level was normal. Further recommendations to follow. DNP note has been reviewed, I agree with a documented findings and plan of care. Patient was seen and examined.
[2018-10-15] MEDS ORDERED: hydrALAZINE HCL 25 MG TAB PO SCH (19:30)
--- NOTE | 2018-10-15 19:34 | P.PN ---
Subjective On-call hospitalist covering for Dr. Robertson This is a pleasant 73 years old male with past medical history of diabetes mellitus, hypertension, GERD, multiple CVA/TIA, memory impairment, mild, lichen planus on his legs, chronic neck pain, BPH he presents this time with dizziness 2-3 days duration. As per patient patient describes the dizziness as the room is spinning around him associated with this equilibrium and inability to stand up from sitting position however he gained strength and he can moves his legs strongly and arms as well with no difficulty but still complaining from dizziness. Associated some nausea vomiting which is resolved now, however patient denies headache no trauma no neck pain. No weakness in arm or legs. No abnormal sensation. No double vision or difficulty talking or swallowing. Patient denies chest pain or dyspnea. No abdominal pain. No problem with bowel movement or urine ability. Patient at baseline he works out twice in the gym and he walks a lot. Over the last 2 weeks he had 10 episodes of sweating that started due to his low sugar but his sugar was normal when checked. He has precancerous lesion taking up from his mouth about couple weeks ago. And he has injections and the spine for his chronic neck pain. Patient denies tinnitus or hearing loss. Patient states that he has 2 stents in hishowever he had MRI of the cervical spines about 2 months ago. Patient is severely claustrophobic and he asked to be sedated prior to do the MRI. Xanax and Ativan of the heart before the MRI and he agrees to do it while inpatient. On admission he has mild leukocytosis came back to normal at 6.3K Fran of CBC and BMP was unremarkable. Liver enzymes within normal limits. Urinalysis was not suspicious for infection. Vital sign showing he is afebrile, bradycardic, saturating 96% on room air. CT of the head is negative for acute process however showing chronic cerebral atrophy and chronic ischemic changes. Patient has been evaluated by surgical team status post colonoscopy with 2 polyps removed, showing diverticulosis. 10/15/2018 Patient states this morning he feels better as regarding his dizziness and vertigo, he said that he can watch the TV with no feeling of dizziness as he used to be before and he feels much better. history of have left eye nystagmus. He had negative MRI of the brain today. Patient was restarted on aspirin for his previous history of TIAs Cardiology evaluation is appreciated they recommended echocardiogram, and orthostasis which were positive. Patient was started on IV fluids. Blood pressure on the high side and hydralazine was added to losartan . Triglycerides elevated at 294, TSH within normal limits CONSTITUTIONAL: No fever, no malaise, no fatigue. HEENT: No recent visual problems or hearing problems. Denied any sore throat. CARDIOVASCULAR: No orthopnea, PND, no palpitations, no syncope. PULMONARY: No shortness of breath, no cough, no hemoptysis. GASTROINTESTINAL: No diarrhea, no nausea, no vomiting, no abdominal pain. Normoactive bowel sounds. NEUROLOGICAL: No headaches, no weakness, no numbness. HEMATOLOGICAL: Denies any bleeding or petechiae. GENITOURINARY: Denies any burning micturition, frequency, or urgency. MUSCULOSKELETAL/RHEUMATOLOGICAL: Denies any joint pain, swelling, or any muscle pain. ENDOCRINE: Denies any polyuria or polydipsia. Medication: Zofran, Protonix, Ativan, losartan, lactobacillus, Tylenol. Hydralazine, normal saline, aspirate Objective - Vital Signs Vital signs: Vital Signs Temp 98.4 F 10/15/18 19:15 Pulse 45 L 10/15/18 19:15 Resp 18 10/15/18 19:15 BP 160/84 10/15/18 19:15 Pulse Ox 96 10/15/18 19:15 Intake & Output 10/15/18 10/15/18 10/16/18 06:59 18:59 06:59 Intake Total 200 Output Total 350 800 Balance -150 -800 Intake: Oral 200 Output: Urine 350 800 Other: Voiding Method Urinal # Voids 2 - Exam GENERAL: The patient is alert and oriented x3, not in any acute distress. Well developed, well nourished. HEENT: Pupils are round and equally reacting to light. EOMI. No scleral icterus. No conjunctival pallor. Normocephalic, atraumatic. No pharyngeal erythema. No thyromegaly. CARDIOVASCULAR: S1 and S2 present. No murmurs, rubs, or gallops. PULMONARY: Chest is clear to auscultation, no wheezing or crackles. ABDOMEN: Soft, nontender, nondistended, normoactive bowel sounds. No palpable organomegaly. MUSCULOSKELETAL: No joint swelling or deformity. EXTREMITIES: No cyanosis, clubbing, or pedal edema. -NEUROLOGICAL: Gross neurological examination did not reveal any focal deficits. He has left nystagmus, strength is 5/5 in all 4 extremities, sensation is intact. SKIN: No rashes. - Labs CBC & Chem 7: 10/15/18 09:26 10/15/18 09:41 Labs: Abnormal Lab Results - Last 24 Hours (Table) 10/15/18 Range/Units 09:41 Chloride 109 H (98-107) mmol/L Glucose 137 H (74-99) mg/dL Triglycerides 294 H (<150) mg/dL HDL Cholesterol 32 L (40-60) mg/dL Assessment and Plan Assessment: Dizziness, looks more vertigo's with disequilibrium. MRI of the brain is negative. Possible TIA History of multiple TIA, Bradycardia Positive orthostasis History of coronary artery disease Hypophosphatemia, phosphorus was 1.1 on admission. corrected Lichen planus on his legs Chronic neck pain History of BPH History of diabetes mellitus Essential hypertension History of GERD Plan: This is a pleasant 73 years old male who presents because of dizziness is vertigo with nystagmus. CT of the brain was negative. Labs was unremarkable. Call cardiology consult. We'll do an MRI of the brain Labs and medication were reviewed. Unfortunately there is no neurologist in this hospital currently. Continue same treatment. Continue with symptomatic treatment. Resume home medication. Monitor lytes and vitals. DVT and GI prophylaxis. Further recommendations of the clinical course of the patient DVT prophylaxis: Subcutaneous heparin GI Prophylaxis: Pepcid PT/OT: Pending Prognosis is guarded
[2018-10-15] MEDS: hydrALAZINE HCL 10 MG TAB PO SCH (21:29)
[2018-10-15] MEDS: SODIUM CHLORIDE 0.9% 1,000 ML IV SCH (21:42)
[2018-10-16] MEDS: SODIUM CHLORIDE 0.9% 1,000 ML IV SCH ×3 (10:22→16:46)
[2018-10-16] MEDS: LACTOBACILLUS ACIDOPH & BULGAR 1 EACH PACKET PO SCH (10:25)
[2018-10-16] MEDS: hydrALAZINE HCL 10 MG TAB PO SCH ×2 (10:25→21:22)
[2018-10-16] MEDS: HEPARIN SODIUM,PORCINE 5,000 UNIT/ML 1 ML VIAL SQ SCH ×2 (10:25→21:22)
[2018-10-16] MEDS: PANTOPRAZOLE 40 MG TABLET PO SCH (10:25)
[2018-10-16] MEDS: LOSARTAN 50 MG TAB PO SCH (10:25)
[2018-10-16] MEDS: ASPIRIN 81 MG PO SCH (10:25)
--- NOTE | 2018-10-16 12:05 | US ---
EXAMINATION TYPE: US carotid duplex BILAT DATE OF EXAM: 10/16/2018 COMPARISON: 09/17/2014 CLINICAL HISTORY: 73-year-old male possible TIA, dizziness. Dizziness, light headedness, TIA TECHNIQUE: Carotid duplex ultrasound examination. Direct Doppler criteria was utilized. FINDINGS: EXAM MEASUREMENTS: RIGHT: Peak Systolic Velocity (PSV) cm/sec ----- Right CCA: 62.4 ----- Right ICA: 91.9 ----- Right ECA: 77.5 ICA/CCA ratio: 1.5 RIGHT: End Diastole cm/sec ----- Right CCA: 14.7 ----- Right ICA: 20.4 ----- Right ECA: 9.1 LEFT: Peak Systolic Velocity (PSV) cm/sec ----- Left CCA: 52.4 ----- Left ICA: 74.9 ----- Left ECA: 71.5 ICA/CCA ratio: 1.4 LEFT: End Diastole cm/sec ----- Left CCA: 12.0 ----- Left ICA: 21.9 ----- Left ECA: 9.1 VERTEBRALS (direction of flow): Right Vertebral: Antegrade Left Vertebral: Antegrade Rhythm: Normal Coordinator Of Evaluation notes: Bilateral intimal thickening, minimal plaque bilateral bulb, no elevated velocitie s, no significant stenosis. There is mild atherosclerotic change at both bifurcations. IMPRESSION: No hemodynamically significant stenosis appreciated in either internal carotid artery. Criteria for Assigning % of Stenosis / Diameter reduction (Estimation based on the indirect measurements of the internal carotid artery velocities (ICA PSV). 1. Normal (no stenosis)=ICA PSV < 125 cm/s: ratio < 2.0: ICA EDV<40 cm/s. 2. Less than 50% stenosis=ICA PSV < 125 cm/s: ratio < 2.0: ICA EDV<40 cm/s. 3. 50 to 69% stenosis=ICA PSV of 125 to 230 cm/s: ration 2.0 ? 4.0: ICA EDV 40-100 cm/s. 4. Greater than 70% stenosis to near occlusion= ICA PSV > 230 cm/s: ratio > 4.0: ICA EDV > 100 cm/s. 5. Near occlusion= ICA PSV velocities may be low or undetectable: variable ratio and ICA EDV. 6. Total occlusion=unable to detect flow.
[2018-10-16] MEDS: ONDANSETRON 4 MG/2 ML VIAL IVP SCH ×2 (12:59→18:16)
[2018-10-16] MEDS: FLUDROCORTISONE 0.1 MG TAB PO SCH (13:01)
--- NOTE | 2018-10-16 16:14 | P.PN ---
Subjective On-call hospitalist covering for Dr. Robertson This is a pleasant 73 years old male with past medical history of diabetes mellitus, hypertension, GERD, multiple CVA/TIA, memory impairment, mild, lichen planus on his legs, chronic neck pain, BPH he presents this time with dizziness 2-3 days duration. As per patient patient describes the dizziness as the room is spinning around him associated with this equilibrium and inability to stand up from sitting position however he gained strength and he can moves his legs strongly and arms as well with no difficulty but still complaining from dizziness. Associated some nausea vomiting which is resolved now, however patient denies headache no trauma no neck pain. No weakness in arm or legs. No abnormal sensation. No double vision or difficulty talking or swallowing. Patient denies chest pain or dyspnea. No abdominal pain. No problem with bowel movement or urine ability. Patient at baseline he works out twice in the gym and he walks a lot. Over the last 2 weeks he had 10 episodes of sweating that started due to his low sugar but his sugar was normal when checked. He has precancerous lesion taking up from his mouth about couple weeks ago. And he has injections and the spine for his chronic neck pain. Patient denies tinnitus or hearing loss. Patient states that he has 2 stents in hishowever he had MRI of the cervical spines about 2 months ago. Patient is severely claustrophobic and he asked to be sedated prior to do the MRI. Xanax and Ativan of the heart before the MRI and he agrees to do it while inpatient. On admission he has mild leukocytosis came back to normal at 6.3K Fran of CBC and BMP was unremarkable. Liver enzymes within normal limits. Urinalysis was not suspicious for infection. Vital sign showing he is afebrile, bradycardic, saturating 96% on room air. CT of the head is negative for acute process however showing chronic cerebral atrophy and chronic ischemic changes. Patient has been evaluated by surgical team status post colonoscopy with 2 polyps removed, showing diverticulosis. 10/15/2018 Patient states this morning he feels better as regarding his dizziness and vertigo, he said that he can watch the TV with no feeling of dizziness as he used to be before and he feels much better. history of have left eye nystagmus. He had negative MRI of the brain today. Patient was restarted on aspirin for his previous history of TIAs Cardiology evaluation is appreciated they recommended echocardiogram, and orthostasis which were positive. Patient was started on IV fluids. Blood pressure on the high side and hydralazine was added to losartan . Triglycerides elevated at 294, TSH within normal limits 10/16/2018 Patient was lying in bed, not in distress. He could walk in the hallway yesterday with help twice, however this morning as he was trying to get out of but he got dizzy. Patient has negative MRI of the brain however he has positive postural hypotension for measurement. Cardiology team evaluation is appreciated and they recommended echocardiogram. Patient was started on IV fluids which is increased today to 125 mL per hour, also he was started on fludrocortisone. He is on hydralazine and Cozaar for his blood pressure which is still on the high side but keep monitoring. Patient also to continue on aspirin 18 1 mg which is started in the hospital. CBC and BMP were unremarkable. rests of Vitas is stable. Carotid duplex: No stenosis. They have long discussion with the patient and at bedside. CONSTITUTIONAL: No fever, no malaise, no fatigue. HEENT: No recent visual problems or hearing problems. Denied any sore throat. CARDIOVASCULAR: No orthopnea, PND, no palpitations, no syncope. PULMONARY: No shortness of breath, no cough, no hemoptysis. GASTROINTESTINAL: No diarrhea, no nausea, no vomiting, no abdominal pain. Normoactive bowel sounds. NEUROLOGICAL: No headaches, no weakness, no numbness. HEMATOLOGICAL: Denies any bleeding or petechiae. GENITOURINARY: Denies any burning micturition, frequency, or urgency. MUSCULOSKELETAL/RHEUMATOLOGICAL: Denies any joint pain, swelling, or any muscle pain. ENDOCRINE: Denies any polyuria or polydipsia. Medication: Zofran, Protonix, Ativan, losartan, lactobacillus, Tylenol. Hydralazine, normal saline, fludrocortisone. Objective - Vital Signs Vital signs: Vital Signs Temp 97.9 F 10/16/18 15:00 Pulse 58 L 10/16/18 15:00 Resp 12 10/16/18 15:00 BP 161/79 10/16/18 07:41 Pulse Ox 96 10/16/18 15:00 Intake & Output 10/15/18 10/16/18 10/16/18 18:59 06:59 18:59 Intake Total 1025 Output Total 800 300 Balance -800 -300 1025 Intake: Intake, IV Titration 525 Amount Sodium Chloride 0.9% 1, 525 000 ml @ 125 mls/hr IV . Q8H [facility] Rx#:[id number] Oral 500 Output: Urine 800 300 Other: Voiding Method Urinal # Voids 0 - Exam GENERAL: The patient is alert and oriented x3, not in any acute distress. Well developed, well nourished. HEENT: Pupils are round and equally reacting to light. EOMI. No scleral icterus. No conjunctival pallor. Normocephalic, atraumatic. No pharyngeal erythema. No thyromegaly. CARDIOVASCULAR: S1 and S2 present. No murmurs, rubs, or gallops. PULMONARY: Chest is clear to auscultation, no wheezing or crackles. ABDOMEN: Soft, nontender, nondistended, normoactive bowel sounds. No palpable organomegaly. MUSCULOSKELETAL: No joint swelling or deformity. EXTREMITIES: No cyanosis, clubbing, or pedal edema. -NEUROLOGICAL: Gross neurological examination did not reveal any focal deficits. He has left nystagmus, strength is 5/5 in all 4 extremities, sensation is intact. SKIN: No rashes. - Labs CBC & Chem 7: 10/15/18 09:26 10/15/18 09:41 Assessment and Plan Assessment: Dizziness, looks more vertigo's with disequilibrium. MRI of the brain is negative. Possible TIA History of multiple TIA Bradycardia Positive orthostasis History of coronary artery disease Hypophosphatemia, phosphorus was 1.1 on admission. corrected Lichen planus on his legs Chronic neck pain History of BPH History of diabetes mellitus Essential hypertension History of GERD Plan: This is a pleasant 73 years old male who presents because of dizziness is vertigo with nystagmus. CT of the brain was negative. Continue with hydrocortisone, follow-up cardiology recommendation Labs was unremarkable. Call cardiology consult. We'll do an MRI of the brain Labs and medication were reviewed. Unfortunately there is no neurologist in this hospital currently. Continue same treatment. Continue with symptomatic treatment. Resume home medication. Monitor lytes and vitals. DVT and GI prophylaxis. Further recommendations of the clinical course of the patient DVT prophylaxis: Subcutaneous heparin GI Prophylaxis: Pepcid PT/OT: Pending Prognosis is guarded
[2018-10-16] MEDS: ACETAMINOPHEN TAB 325 MG TAB PO PRN (21:22)
[2018-10-16] MEDS: LORazepam 0.5 MG TAB PO PRN (21:22)
[2018-10-17] MEDS: ONDANSETRON 4 MG/2 ML VIAL IVP SCH ×3 (00:55→12:15)
[2018-10-17] MEDS: hydrALAZINE HCL 10 MG TAB PO SCH ×2 (00:55→09:22)
[2018-10-17] MEDS: SODIUM CHLORIDE 0.9% 1,000 ML IV SCH (07:27)
[2018-10-17 07:44] VITALS: RESP 15
[2018-10-17 07:50] LABS: Basophils % (A) 0 %; Eosinophils # (A) 0.2 k/uL (0-0.7); Eosinophils % (A) 4 %; HCT 41.4 % (39.0-53.0); HGB 13.9 gm/dL (13.0-17.5); Lymphocytes # (A) 1.6 k/uL (1.0-4.8); Lymphocytes % (A) 25 %; MCH 33.5 pg (25.0-35.0); MCHC 33.6 g/dL (31.0-37.0); MCV 99.7 fL (80.0-100.0); Mean Platelet Volume 6.7; Monocytes # (A) 0.4 k/uL (0-1.0); Monocytes % (A) 6 %; Neutrophils # (A) 4.1 k/uL (1.3-7.7); Neutrophils % (A) 64 %; Platelet Count 214 k/uL (150-450); RBC 4.16 m/uL (4.30-5.90); RDW 13.3 % (11.5-15.5); WBC 6.4 k/uL (3.8-10.6)
[2018-10-17 08:00] LABS: Anion Gap 6 mmol/L; Blood Urea Nitrogen 14 mg/dL (9-20); Carbon Dioxide 25 mmol/L (22-30); Chloride 109 mmol/L (98-107); Glucose 113 mg/dL (74-99); Potassium 4.3 mmol/L (3.5-5.1); Sodium 140 mmol/L (137-145)
[2018-10-17] MEDS: PANTOPRAZOLE 40 MG TABLET PO SCH (09:22)
[2018-10-17] MEDS: LOSARTAN 50 MG TAB PO SCH (09:22)
[2018-10-17] MEDS: HEPARIN SODIUM,PORCINE 5,000 UNIT/ML 1 ML VIAL SQ SCH (09:23)
[2018-10-17] MEDS: ASPIRIN 81 MG PO SCH (09:23)
[2018-10-17] MEDS: LACTOBACILLUS ACIDOPH & BULGAR 1 EACH PACKET PO SCH (09:23)
[2018-10-17] MEDS: FLUDROCORTISONE 0.1 MG TAB PO SCH (09:24)
--- NOTE | 2018-10-17 13:59 | ECHOF ---
Referral Reason:dizzines, sob MEASUREMENTS -------- HEIGHT: 180.3 cm WEIGHT: 83.9 kg BP: 168/73 RVIDd: 3.3 cm (< 3.3) IVSd: 1.3 cm (0.6 - 1.1) LVIDd: 5.0 cm (3.9 - 5.3) LVPWd: 1.3 cm (0.6 - 1.1) IVSs: 1.5 cm LVIDs: 3.6 cm LVPWs: 1.5 cm LAESV Index (A-L): 31.53 ml/m Ao Diam: 3.2 cm (2.0 - 3.7) AV Cusp: 2.1 cm (1.5 - 2.6) LA Diam: 3.7 cm (2.7 - 3.8) EPSS: 0.9 cm MV E Tomás: 0.67 m/s MV DecT: 337 ms MV A Tomás: 0.71 m/s MV E/A Ratio: 0.95 RAP: 5.00 mmHg RVSP: 30.63 mmHg MV EF SLOPE: 93.26 mm/s (70 - 150) MV EXCURSION: 1.52 cm (> 18.000) FINDINGS -------- Resting bradycardia (HR<60bpm). This was a technically difficult study with suboptimal views. The left ventricular size is normal. There is mild concentric left ventricular hypertrophy. Overa ll left ventricular systolic function is normal with, an EF between 55 - 60 %. The right ventricle is mildly enlarged. Normal LA size by volume 22+/-6 ml/m2. The right atrium is normal in size. 3 ml of Lumason was utilized for enhancement of images. Aortic valve is trileaflet and is mildly thickened. There is no evidence of aortic regurgitation. There is no evidence of aortic stenosis. The mitral valve leaflets are mildly thickened. There is trace to mild mitral regurgitation. Trace tricuspid regurgitation present. Right ventricular systolic pressure is normal at < 35 mmHg. There is no evidence of pulmonary hypertension. The pulmonic valve was not well visualized. The aortic root size is normal. Normal inferior vena cava with normal inspiratory collapse consistent with estimated right atrial pre ssure of 5 mmHg. There is no pericardial effusion. CONCLUSIONS -------- 1. Resting bradycardia (HR<60bpm). 2. This was a technically difficult study with suboptimal views. 3. The left ventricular size is normal. 4. There is mild concentric left ventricular hypertrophy. 5. Overall left ventricular systolic function is normal with, an EF between 55 - 60 %. 6. The right ventricle is mildly enlarged. 7. Normal LA size by volume 22+/-6 ml/m2. 8. 3 ml of Lumason was utilized for enhancement of images. 9. Aortic valve is trileaflet and is mildly thickened. 10. The mitral valve leaflets are mildly thickened. 11. There is trace to mild mitral regurgitation. 12. Trace tricuspid regurgitation present. 13. Right ventricular systolic pressure is normal at < 35 mmHg. 14. There is no evidence of pulmonary hypertension. 15. The pulmonic valve was not well visualized. 16. The aortic root size is normal. 17. There is no pericardial effusion. ELECTRICAL MAINTENANCE WORKER: Andrae Amaya RDCS
--- NOTE | 2018-10-17 14:27 | P.PN ---
Subjective This is a pleasant 73-year-old male past medical history significant for hypertension, frequent TIA's in the past and diabetes mellitus that has improved and resolved with weight loss. He follows in the office with Dr. Jeff. He underwent cardiac catheterization in 2013 revealing left main with no disease, LAD with no disease, circuflex with no disease and RCA with no disease. He continues to feel somewhat light headed with position changes but denies extreme dizziness that he had when he came in. He denies chest pain, shortness of breath, palpitations, nausea or vomiting. Telemetry tracings indicate no significant bradycardia. Orthostatic vital signs are negative. Florineff has been started per primary. Blood pressure 174/84 heart rate 54. Currently maintained on aspirin 81 mg daily, hydralazine 25 mg BID, losartan 100 mg daily and antivert 25 mg BID PRN. At home he takes hydrochlorothiazide however he states this causes him to have difficulty urinating due to BPH. He also continues to receive fluids at 125 cc/hr. Laboratory data reviewed, WBC 6.4 , hgb 13.9, plt 214, sodium 140, potassium 4.3, creatinine 0.88. GENERAL: Well-appearing, well-nourished and in no acute distress. NECK: Supple without JVD or thyromegaly. LUNGS: Breath sounds clear to auscultation bilaterally. Respiration equal and unlabored. No wheezes, rales or rhonchi. HEART: Regular rate and rhythm without murmurs, rubs or gallops. S1 and S2 heard. EXTREMITIES: Normal range of motion, no edema. No clubbing or cyanosis. Peripheral pulses intact. ASSESSMENT Dizziness, vomiting and weakness while undergoing bowel prep for colonoscopy Vertigo Bradycardia Hypertension Dyslipidemia GERD Generalized weakness PLAN Echocardiogram has been obtained and reviewed. No acute abnormalities. Discontinue florineff as this is likely causing his elevated blood pressures. Stable from a cardiac perspective, follow up with Dr. Jeff in 2 weeks. We will continue to follow as needed. Nurse Practitioner note has been reviewed, I agree with a documented findings and plan of care. Patient was seen and examined. Objective - Vital Signs Vital signs: Vital Signs Temp 97.8 F 10/17/18 07:00 Pulse 54 L 10/17/18 07:00 Resp 15 10/17/18 07:00 BP 174/84 10/17/18 07:00 Pulse Ox 95 10/17/18 00:16 Intake & Output 10/16/18 10/17/18 10/17/18 18:59 06:59 18:59 Intake Total 1025 240 Output Total 500 Balance 1025 -500 240 Intake: Intake, IV Titration 525 Amount Sodium Chloride 0.9% 1, 525 000 ml @ 125 mls/hr IV . Q8H [facility] Rx#:[id number] Oral 500 240 Output: Urine 500 - Labs CBC & Chem 7: 10/17/18 06:57 10/17/18 06:57 Labs: Abnormal Lab Results - Last 24 Hours (Table) 10/17/18 10/17/18 Range/Units 06:57 06:57 RBC 4.16 L (4.30-5.90) m/uL Chloride 109 H (98-107) mmol/L Glucose 113 H (74-99) mg/dL
[2018-10-17 16:02] VITALS: BP 164/84; PULSE 67; TEMP 98
== END 2018-10-17 16:40 | disposition home health service (06) | DRG 641 ==
LOC: EC 21:37 → 4SSUR 23:36
PROVIDERS: ADMIT Family Medicine; ATTEND Family Medicine
PROC: 0DBL8ZZ Excision of Transverse Colon, Via Natural or Artificial Opening Endoscopic (ICD-10-PCS; principal; 2018-10-12)
DX: E86.0 Dehydration (principal); K57.32 Diverticulitis of large intestine without perforation or abscess without bleeding; E83.39 Other disorders of phosphorus metabolism; D12.3 Benign neoplasm of transverse colon; E11.41 Type 2 diabetes mellitus with diabetic mononeuropathy; E78.5 Hyperlipidemia, unspecified; F17.200 Nicotine dependence, unspecified, uncomplicated; F40.240 Claustrophobia; G89.29 Other chronic pain; I10 Essential (primary) hypertension; I25.10 Atherosclerotic heart disease of native coronary artery without angina pectoris; I95.1 Orthostatic hypotension; K21.9 Gastro-esophageal reflux disease without esophagitis; K64.8 Other hemorrhoids; L43.9 Lichen planus, unspecified; R42 Dizziness and giddiness; M19.90 Unspecified osteoarthritis, unspecified site; R00.1 Bradycardia, unspecified; N40.0 Benign prostatic hyperplasia without lower urinary tract symptoms; M54.2 Cervicalgia; Z79.82 Long term (current) use of aspirin; Z79.899 Other long term (current) drug therapy; Z86.010 Personal history of colon polyps; Z86.73 Personal history of transient ischemic attack (TIA), and cerebral infarction without residual deficits; Z87.442 Personal history of urinary calculi; Z88.1 Allergy status to other antibiotic agents; Z88.5 Allergy status to narcotic agent; Z88.8 Allergy status to other drugs, medicaments and biological substances
CPT/HCPCS: 36415; 45380; 70450; 70551; 80048; 80053; 80061; 81003; 82550; 82553; 83735; 84100; 84443; 84484; 85025; 85610; 85730; 88305; 93005; 93306; 93880; 96361; 96374; 96375; 99285

== ENCOUNTER → 2020-02-12 | Outpatient (CLI) | payer MEDICARE, OTHER ==
--- NOTE | 2020-02-12 10:54 | CT ---
EXAMINATION TYPE: CT abdomen pelvis wo con DATE OF EXAM: 02/12/2020 HISTORY: right flank pain, microhematuria, dysuria, difficulty ejaculating, painful erection CT DLP: 491.3 mGycm. Automated Exposure Control for Dose Reduction was Utilized. TECHNIQUE: CT scan of the abdomen and pelvis is performed without oral or IV contrast. COMPARISON: CT May 25, 2017 FINDINGS: Within the limitations of a non-contrast study, the following observations are made. LUNG BASES: There is dependent atelectasis and fibrotic changes posteriorly in the lower lungs with s ome progression from 2017 CT noted. Coronary artery calcification in the RCA distribution. LIVER/GB: Cholecystectomy clips. PANCREAS: No significant abnormality is seen. SPLEEN: Spleen upper limits of normal in size with curvilinear calcification along the left lateral m argin unchanged from prior. ADRENALS: No significant abnormality is seen. KIDNEYS: No left-sided renal calculi or hydronephrosis. There are 2 adjacent calculi measuring 4 to 5 mm long axis upper pole calyx right kidney coronal image 61. No hydronephrosis or obstructing right ureteral calculi. Some cortical thinning in both kidneys. Bladder is poorly distended without intralu elinor calculus. Moderate concentric wall thickening. BOWEL: Sigmoid colonic diverticulosis without CT evidence for acute diverticulitis. No suspicious sma ll or large bowel dilatation. Normal-appearing appendix from base of cecum in the right pelvis. GENITAL ORGANS: Mildly enlarged prostate gland with some central calcifications and axial image 132 anteriorly redemonstrated. New elongated higher densities favorable brachy therapy seeds along the an terior superior aspect of the prostate, correlate clinically. LYMPH NODES: No greater than 1cm abdominal or pelvic lymph nodes are appreciated. OSSEOUS STRUCTURES: Severe disc space narrowing lumbosacral junction moderate narrowing and spurring both hip joints. Multilevel spurring in the thoracolumbar spine. Facet arthropathy lower lumbar level s. OTHER: Moderate calcified plaque of the aorta extends into branch vessels. IMPRESSION: Stable 2 adjacent 4 to 5 mm calculi calyx right kidney. No hydronephrosis or obstructing ureteral calculi bilaterally. Interval clearance of small left renal calculi. Persistent mildly enlar ged prostate gland with suspected new brachytherapy seeds in unusual location localized to the anteri or superior aspect of the gland which is bulging on bladder base. Correlate clinically.
== END | disposition home or self-care (01) ==
LOC: RADCTMAIN 10:06
PROVIDERS: ATTEND Urology
DX: N20.0 Calculus of kidney (principal); N40.0 Benign prostatic hyperplasia without lower urinary tract symptoms; Z88.2 Allergy status to sulfonamides; Z88.8 Allergy status to other drugs, medicaments and biological substances
CPT/HCPCS: 74176

== ENCOUNTER → 2020-02-13 | Outpatient (CLI) | payer MEDICARE, OTHER ==
--- NOTE | 2020-02-13 13:23 | XR ---
EXAMINATION TYPE: XR abdomen 1V DATE OF EXAM: 02/13/2020 HISTORY: Pain Comparison: None.Single KUB is submitted for interpretation. Findings: Right renal calculi: 4.7 mm calculus upper pole right kidney with an adjacent 3 mm calculus. Right ureteral calculi: None Visualized. Left renal calculi: None Visualized. Left ureteral calculi: None Visualized. Pelvic calcifications: None Visualized. Bowel gas pattern is unremarkable. No free air. No mass effects. IMPRESSION: 1. Nonobstructing right-sided nephrolithiasis.
== END | disposition home or self-care (01) ==
LOC: RADXRMAIN 12:37
PROVIDERS: ATTEND Urology
DX: N20.0 Calculus of kidney (principal)
CPT/HCPCS: 74018

== ENCOUNTER → 2020-03-08 | Outpatient (CLI) | payer MEDICARE, OTHER ==
--- NOTE | 2020-03-08 09:46 | XR ---
EXAMINATION TYPE: XR abdomen 1V DATE OF EXAM: 03/08/2020 HISTORY: Pain Comparison: 02/13/2020Single KUB is submitted for interpretation. Findings: Right renal calculi: Previously noted calculi upper pole right kidney not visualized at this time. Right ureteral calculi: None Visualized. Left renal calculi: None Visualized. Left ureteral calculi: None Visualized. Pelvic calcifications: None Visualized. Bowel gas pattern is unremarkable. No free air. No mass effects. IMPRESSION: 1. Previously noted calculi upper pole right kidney not visualized at this time.
== END | disposition home or self-care (01) ==
LOC: RADXRMAIN 09:17
PROVIDERS: ATTEND Urology
DX: N20.0 Calculus of kidney (principal)
CPT/HCPCS: 74018

== ENCOUNTER → 2021-07-01 | Outpatient (CLI) | payer MEDICARE, OTHER ==
--- NOTE | 2021-07-01 10:04 | CT ---
EXAMINATION TYPE: CT ChestAbdPelvis wo con DATE OF EXAM: 07/01/2021 COMPARISON: CT abdomen and pelvis February 12, 2020 HISTORY: abnormal wt loss, all over body aches CT DLP: 802.9 mGycm. Automated Exposure Control for Dose Reduction was Utilized. TECHNIQUE: CT scan of the thorax, abdomen and pelvis is performed without IV contrast. FINDINGS: LUNGS: Mild biapical pleural/parenchymal scarring. Additional focal mild to moderate posterior atelec tatic change with linear scarring and some areas of cystic change in the bilateral lower lobes. Scatt ered peripheral mild fibrotic changes bilaterally. There is no pleural effusion or pneumothorax see n. The tracheobronchial tree is patent. No suspicious nodules or masses. MEDIASTINUM: There are no greater than 1 cm hilar or mediastinal lymph nodes. No cardiomegaly or pe ricardial effusion is seen. Moderate three-vessel coronary artery calcification LIVER/GB: Cholecystectomy clips are redemonstrated. PANCREAS: No significant abnormality is seen. SPLEEN: Curvilinear calcification along the left lateral margin of spleen redemonstrated. Spleen stab le measuring upper limits of normal in size. ADRENALS: No significant abnormality is seen. KIDNEYS: New 1 to 2 mm calculus right kidney upper pole level coronal image 62. Larger calculi prior CT is not clearly seen. No left-sided nephrolithiasis. No hydronephrosis seen bilaterally. BOWEL: There are colonic diverticula including sigmoid colonic diverticula are redemonstrated. No CT evidence for acute diverticulitis. Small bowel feces sign in the distal ileum. No suspicious small or large bowel dilatation. GENITAL ORGANS: Enlarged prostate consistent with BPH redemonstrated. Persistent brachytherapy seeds along the upper aspect anteriorly in the prostate. LYMPH NODES: No greater than 1cm abdominal or pelvic lymph nodes are appreciated. OSSEOUS STRUCTURES: Moderate to severe disc space narrowing lumbosacral junction. Facet arthropathy l ower lumbar levels. Moderate multilevel spurring mid to lower thoracic spine. OTHER: Small fat-containing left inguinal hernia. Moderate calcified plaque of the distal aorta exten ds into branch vessels. IMPRESSION: No suspicious new mass or adenopathy on noncontrast CT to account for patient's symptoms.
== END | disposition home or self-care (01) ==
LOC: RADCTMAIN 06:23
PROVIDERS: ATTEND Family Medicine
DX: R63.4 Abnormal weight loss (principal); R52 Pain, unspecified
CPT/HCPCS: 71250; 74176

== ENCOUNTER 2021-11-13 03:11 | Observation (INO) | payer MEDICARE, OTHER ==
[2021-11-13] MEDS ORDERED: SODIUM CHLORIDE 0.9% 1,000 ML IV STA (03:16)
--- NOTE | 2021-11-13 03:28 | ED ---
Dizziness HPI - General Chief Complaint: Dizziness Stated Complaint: Dizziness Time Seen by Provider: 11/13/21 03:13 Source: EMS, RN notes reviewed, old records reviewed Mode of arrival: EMS Limitations: no limitations - Related Data Home Medications Medication Instructions Recorded Confirmed L.acidoph,Paracasei, B.lactis 1 cap PO DAILY 06/27/18 10/12/18 [Probiotic] Losartan Potassium [Cozaar] 100 mg PO DAILY 06/27/18 10/12/18 LORazepam [Ativan] 0.5 mg PO DAILY PRN 10/12/18 10/12/18 hydroCHLOROthiazide [Hydrodiuril] 25 mg PO DAILY PRN 10/12/18 10/12/18 Previous Rx's Medication Instructions Recorded Aspirin 81 mg PO DAILY #30 chew 10/17/18 Pantoprazole [Protonix] 40 mg PO AC-BRKFST #7 tablet. 10/17/18 hydrALAZINE HCL [Apresoline] 25 mg PO BID #60 tab 10/17/18 Meclizine [Antivert] 25 mg PO TID PRN #12 tab 04/21/20 Metoclopramide HCl [Reglan] 10 mg PO Q6HR PRN #15 tablet 04/21/20 Allergies Allergy/AdvReac Type Severity Reaction Status Date / Time lisinopril Allergy Unknown BODY Verified 11/13/21 03:13 ACHES, EXHAUSTION, PAIN amlodipine Allergy SEVERE LEG Verified 11/13/21 03:13 PAIN, "MESSES UP HIS THINKING" ciprofloxacin [From Cipro] AdvReac Unknown SLURRED Verified 11/13/21 03:13 SPEECH ezetimibe [From Zetia] AdvReac Unknown BODY ACHES Verified 11/13/21 03:13 ofloxacin [From Floxin] AdvReac Unknown SLURRED Verified 11/13/21 03:13 SPEECH hydrocodone [From [place]] AdvReac Stomach Verified 11/13/21 03:13 upset, constipation moxifloxacin HCl AdvReac TREMBLE , Verified 11/13/21 03:13 [From Avelox] LIGHTHEADED, WEAK fluoroquinolones Allergy Itching Uncoded 11/13/21 03:13 Review of Systems ROS Statement: Those systems with pertinent positive or pertinent negative responses have been documented in the HPI. ROS Other: All systems not noted in ROS Statement are negative. Past Medical History Past Medical History: CVA/TIA, Diabetes Mellitus, GERD/Reflux, Hypertension, Osteoarthritis (OA), Pneumonia Additional Past Medical History / Comment(s): MULTIPLE TIA'S (7) - RIGHT SIDED WEAKNESS RESOLVED.- SLIGHT MEMORY IMPAIRMENT., VARICOSE VEINS, KIDNEY STONES, LICHEN PLANUS ON HIS LEGS, GARETH MARTINEZ.,DIABETES RESOLVED WITH WT LOSS., NOW HAS EPISODES OF HYPOGLYCEMIA., PINCHED NERVE NECK WITH PAIN IN NECK & SHOULDERS.,RECEIVING INJECTIONS FOR NECK PAIN, RIGHT ARM GOES NUMB AND A COUPLE FINGERS ARE NUMB., TORN RIGHT ROTATOR CUFF., BPH WITH UROLIFT PROCEDURE., PT HAS 2 METAL STENTS FROM HIS GUM TO SINUS CAVITY., ORAL LEUKOPLAKIA SURGERY., HX OF COLON POLYPS. History of Any Multi-Drug Resistant Organisms: None Reported Past Surgical History: Cholecystectomy Additional Past Surgical History / Comment(s): kidney stones removed, UROLIFT., DENTAL PROCEDURE WITH METAL STENTS FROM GUMS TO SINUS CAVITY., ORAL LEUKOPLAKIA SURGERY, . Past Anesthesia/Blood Transfusion Reactions: No Reported Reaction Additional Past Anesthesia/Blood Transfusion Reaction / Comment(s): HX OF PASSING OUT WITH STARTING IV Past Psychological History: Anxiety Smoking Status: Former smoker Past Alcohol Use History: Occasional Past Drug Use History: None Reported - Past Family History Mother Family Medical History: No Reported History General Exam Limitations: no limitations Course Vital Signs 11/13/21 11/13/21 03:15 03:19 Temperature 97.8 F Pulse Rate 71 Respiratory 16 Rate Blood Pressure 139/94 EKG Findings - EKG Comments: EKG Findings:: EKG is sinus rhythm 75 WA 148 QRS 112 QTC 424 Medical Decision Making - Lab Data Result diagrams: 11/13/21 03:30 11/13/21 03:30 Lab Results 11/13/21 11/13/21 11/13/21 Range/Units 03:30 03:30 03:30 WBC 7.3 (3.8-10.6) k/uL RBC 4.28 L (4.30-5.90) m/uL Hgb 14.7 (13.0-17.5) gm/dL Hct 42.3 (39.0-53.0) % MCV 98.9 (80.0-100.0) fL MCH 34.3 (25.0-35.0) pg MCHC 34.7 (31.0-37.0) g/dL RDW 13.8 (11.5-15.5) % Plt Count 244 (150-450) k/uL MPV 7.7 Neutrophils % 59 % Lymphocytes % 31 % Monocytes % 5 % Eosinophils % 2 % Basophils % 0 % Neutrophils # 4.3 (1.3-7.7) k/uL Lymphocytes # 2.3 (1.0-4.8) k/uL Monocytes # 0.4 (0-1.0) k/uL Eosinophils # 0.2 (0-0.7) k/uL Basophils # 0.0 (0-0.2) k/uL PT 11.0 (9.0-12.0) sec INR 1.0 (<1.2) APTT 21.1 L (22.0-30.0) sec Sodium 134 L (137-145) mmol/L Potassium 3.8 (3.5-5.1) mmol/L Chloride 104 (98-107) mmol/L Carbon Dioxide 19 L (22-30) mmol/L Anion Gap 11 mmol/L BUN 28 H (9-20) mg/dL Creatinine 0.98 (0.66-1.25) mg/dL Est GFR (CKD-EPI)AfAm 88 (>60 ml/min/1.73 sqM) Est GFR (CKD-EPI)NonAf 76 (>60 ml/min/1.73 sqM) Glucose 139 H (74-99) mg/dL Plasma Lactic Acid Mike (0.7-2.0) mmol/L Calcium 9.1 (8.4-10.2) mg/dL Phosphorus 3.2 (2.5-4.5) mg/dL Magnesium 1.6 (1.6-2.3) mg/dL Total Bilirubin 0.7 (0.2-1.3) mg/dL AST 24 (17-59) U/L ALT 17 (4-49) U/L Alkaline Phosphatase 81 (38-126) U/L Troponin I (0.000-0.034) ng/mL NT-Pro-B Natriuret Pep pg/mL Total Protein 6.6 (6.3-8.2) g/dL Albumin 4.0 (3.5-5.0) g/dL 11/13/21 11/13/21 11/13/21 Range/Units 03:30 03:30 03:30 WBC (3.8-10.6) k/uL RBC (4.30-5.90) m/uL Hgb (13.0-17.5) gm/dL Hct (39.0-53.0) % MCV (80.0-100.0) fL MCH (25.0-35.0) pg MCHC (31.0-37.0) g/dL RDW (11.5-15.5) % Plt Count (150-450) k/uL MPV Neutrophils % % Lymphocytes % % Monocytes % % Eosinophils % % Basophils % % Neutrophils # (1.3-7.7) k/uL Lymphocytes # (1.0-4.8) k/uL Monocytes # (0-1.0) k/uL Eosinophils # (0-0.7) k/uL Basophils # (0-0.2) k/uL PT (9.0-12.0) sec INR (<1.2) APTT (22.0-30.0) sec Sodium (137-145) mmol/L Potassium (3.5-5.1) mmol/L Chloride (98-107) mmol/L Carbon Dioxide (22-30) mmol/L Anion Gap mmol/L BUN (9-20) mg/dL Creatinine (0.66-1.25) mg/dL Est GFR (CKD-EPI)AfAm (>60 ml/min/1.73 sqM) Est GFR (CKD-EPI)NonAf (>60 ml/min/1.73 sqM) Glucose (74-99) mg/dL Plasma Lactic Acid Mike 2.7 H* (0.7-2.0) mmol/L Calcium (8.4-10.2) mg/dL Phosphorus (2.5-4.5) mg/dL Magnesium (1.6-2.3) mg/dL Total Bilirubin (0.2-1.3) mg/dL AST (17-59) U/L ALT (4-49) U/L Alkaline Phosphatase (38-126) U/L Troponin I <0.012 (0.000-0.034) ng/mL NT-Pro-B Natriuret Pep 30 pg/mL Total Protein (6.3-8.2) g/dL Albumin (3.5-5.0) g/dL Disposition Clinical Impression: Transient ischemic attack (TIA), Dehydration, Weakness, Benign paroxysmal positional vertigo, Vertigo Disposition: ADMITTED IP TO THIS HOSP Condition: Fair Is patient prescribed a controlled substance at d/c from ED?: No Referrals: Marshall Robertson MD [Primary Care Provider] - 1-2 days
[2021-11-13 03:40] LABS: Basophils % (A) 0 %; Eosinophils # (A) 0.2 k/uL (0-0.7); Eosinophils % (A) 2 %; HCT 42.3 % (39.0-53.0); HGB 14.7 gm/dL (13.0-17.5); Lymphocytes # (A) 2.3 k/uL (1.0-4.8); Lymphocytes % (A) 31 %; MCH 34.3 pg (25.0-35.0); MCHC 34.7 g/dL (31.0-37.0); MCV 98.9 fL (80.0-100.0); Mean Platelet Volume 7.7; Monocytes # (A) 0.4 k/uL (0-1.0); Monocytes % (A) 5 %; Neutrophils # (A) 4.3 k/uL (1.3-7.7); Neutrophils % (A) 59 %; Platelet Count 244 k/uL (150-450); RBC 4.28 m/uL (4.30-5.90); RDW 13.8 % (11.5-15.5); WBC 7.3 k/uL (3.8-10.6)
[2021-11-13 03:52] LABS: Calcium 9.1 mg/dL (8.4-10.2); Magnesium 1.6 mg/dL (1.6-2.3); Phosphorus 3.2 mg/dL (2.5-4.5); Potassium 3.8 mmol/L (3.5-5.1); Total Bilirubin 0.7 mg/dL (0.2-1.3); Total Protein 6.6 g/dL (6.3-8.2)
[2021-11-13 04:04] LABS: Partial Thromboplastin Time 21.1 sec (22.0-30.0)
[2021-11-13] MEDS ORDERED: ONDANSETRON 4 MG/2 ML VIAL IVP STA (04:04)
--- NOTE | 2021-11-13 04:17 | CT ---
EXAMINATION TYPE: CT brain wo con DATE OF EXAM: 11/13/2021 COMPARISON: 04/21/2020 HISTORY: dizziness with vomiting CT DLP: 1233.4 mGycm Automated exposure control for dose reduction was used. There is cerebral cortical atrophy. There is no mass effect nor midline shift. There is no evidence o f intracranial hemorrhage. The calvarium is intact. Skull base is intact. There is normal aeration of the mastoid sinuses. IMPRESSION: Cerebral atrophy. No acute intracranial abnormality. No change.
[2021-11-13] MEDS ORDERED: ASPIRIN 325 MG TAB PO STA (05:05)
[2021-11-13] MEDS ORDERED: PROCHLORPERAZINE INJ 10 MG/2 ML VIAL IVP STA (05:32)
[2021-11-13] MEDS ORDERED: diphenhydrAMINE 50 MG/ML 1 ML VIAL IVP STA (05:32)
[2021-11-13] MEDS: SODIUM CHLORIDE 0.9% 1,000 ML IV SCH ×2 (05:44→16:00)
--- NOTE | 2021-11-13 09:52 | P.CRDCN ---
History of Present Illness History of present illness: This is Dr. Belcher dictating a consult on this patient The patient was interviewed and examined IMPRESSION / ASSESSMENT: Vertigo Past history of CVA Hypertension Normal EKG normal cardiac enzymes History is not consistent with cardiac syncope PLAN: Continue telemetry monitoring No further cardiac workup at this point Upon discharge follow Dr. Jeff who is his primary medical coding technician HPI patient presented with dizziness. Past history of hypertension and diabetes type 2 I spoke to the patient and his . He clearly states that he was spinning and reading and felt as he was "up follow No syncope presyncope at all ROS: No fever chills or rigors, no cough, phlegm or expectoration, no nausea, vomiting or diarrhea, no hematuria, dysuria, no musculoskeletal complaints, No loss of consciousness no skin lesions. EXAMINATION: 139/94 mmHg, pulse rate 71 beats a minute Normal heart sounds Normal breath sounds Abdomen soft Lying comfortably in bed REVIEW OF LABS, ECG & MEDICAL DATA Twelve-lead EKG shows sinus rhythm normal GA narrow QRS normal ST segments leftward axis Normal NT proBNP normal cardiac enzyme Normal electrolytes normal renal function Computed tomography scan no intracranial abnormality Past Medical History Past Medical History: CVA/TIA, Diabetes Mellitus, GERD/Reflux, Hypertension, Osteoarthritis (OA), Pneumonia Additional Past Medical History / Comment(s): MULTIPLE TIA'S (7) - RIGHT SIDED WEAKNESS RESOLVED.- SLIGHT MEMORY IMPAIRMENT., VARICOSE VEINS, KIDNEY STONES, LICHEN PLANUS ON HIS LEGS, GARETH MARTINEZ.,DIABETES RESOLVED WITH WT LOSS., NOW HAS EPISODES OF HYPOGLYCEMIA., PINCHED NERVE NECK WITH PAIN IN NECK & SHOULDERS.,RECEIVING INJECTIONS FOR NECK PAIN, RIGHT ARM GOES NUMB AND A COUPLE FINGERS ARE NUMB., TORN RIGHT ROTATOR CUFF., BPH WITH UROLIFT PROCEDURE., PT HAS 2 METAL STENTS FROM HIS GUM TO SINUS CAVITY., ORAL LEUKOPLAKIA SURGERY., HX OF COLON POLYPS. History of Any Multi-Drug Resistant Organisms: None Reported Past Surgical History: Cholecystectomy Additional Past Surgical History / Comment(s): kidney stones removed, UROLIFT., DENTAL PROCEDURE WITH METAL STENTS FROM GUMS TO SINUS CAVITY., ORAL LEUKOPLAKIA SURGERY, . Past Anesthesia/Blood Transfusion Reactions: No Reported Reaction Additional Past Anesthesia/Blood Transfusion Reaction / Comment(s): HX OF PASSING OUT WITH STARTING IV Past Psychological History: Anxiety Smoking Status: Former smoker Past Alcohol Use History: Occasional Past Drug Use History: None Reported - Past Family History Mother Family Medical History: No Reported History Medications and Allergies Home Medications Medication Instructions Recorded Confirmed Type L.acidoph,Paracasei, B.lactis 1 cap PO DAILY 06/27/18 11/13/21 History [Probiotic] Losartan Potassium [Cozaar] 100 mg PO HS 06/27/18 11/13/21 History Aloe Vera 5,000 mg PO DAILY 11/13/21 11/13/21 History Cholecalciferol (Vitamin D3) 75 mcg PO DAILY 11/13/21 11/13/21 History [Vitamin D3 (3000 Iu)] Curcumin 1 tab PO DAILY 11/13/21 11/13/21 History Liver Tonic 1 tab PO DAILY 11/13/21 11/13/21 History True Vision 1 cap PO DAILY 11/13/21 11/13/21 History Allergies Allergy/AdvReac Type Severity Reaction Status Date / Time lisinopril Allergy Unknown BODY Verified 11/13/21 07:19 ACHES, EXHAUSTION, PAIN amlodipine Allergy SEVERE LEG Verified 11/13/21 07:19 PAIN, "MESSES UP HIS THINKING" ciprofloxacin [From Cipro] AdvReac Unknown SLURRED Verified 11/13/21 07:19 SPEECH ezetimibe [From Zetia] AdvReac Unknown BODY ACHES Verified 11/13/21 07:19 ofloxacin [From Floxin] AdvReac Unknown SLURRED Verified 11/13/21 07:19 SPEECH hydrocodone [From [place]] AdvReac Stomach Verified 11/13/21 07:19 upset, constipation moxifloxacin HCl AdvReac TREMBLE , Verified 11/13/21 07:19 [From Avelox] LIGHTHEADED, WEAK fluoroquinolones Allergy Itching Uncoded 11/13/21 07:19 Physical Exam Vitals: Vital Signs Temp Pulse Resp BP 11/13/21 06:19 72 18 167/85 11/13/21 05:19 73 16 153/88 11/13/21 03:19 97.8 F 11/13/21 03:15 71 16 139/94 Intake and Output 11/12/21 11/13/21 11/13/21 22:59 06:59 14:59 Other: Weight 83.915 kg Results 11/13/21 03:30 03/17/22 03:30 Cardiac Enzymes 11/13/21 11/13/21 Range/Units 03:30 03:30 AST 24 (17-59) U/L Troponin I <0.012 (0.000-0.034) ng/mL Coagulation 11/13/21 Range/Units 03:30 PT 11.0 (9.0-12.0) sec APTT 21.1 L (22.0-30.0) sec CBC 11/13/21 Range/Units 03:30 WBC 7.3 (3.8-10.6) k/uL RBC 4.28 L (4.30-5.90) m/uL Hgb 14.7 (13.0-17.5) gm/dL Hct 42.3 (39.0-53.0) % Plt Count 244 (150-450) k/uL Comprehensive Metabolic Panel 11/13/21 Range/Units 03:30 Sodium 134 L (137-145) mmol/L Potassium 3.8 (3.5-5.1) mmol/L Chloride 104 (98-107) mmol/L Carbon Dioxide 19 L (22-30) mmol/L BUN 28 H (9-20) mg/dL Creatinine 0.98 (0.66-1.25) mg/dL Glucose 139 H (74-99) mg/dL Calcium 9.1 (8.4-10.2) mg/dL AST 24 (17-59) U/L ALT 17 (4-49) U/L Alkaline Phosphatase 81 (38-126) U/L Total Protein 6.6 (6.3-8.2) g/dL Albumin 4.0 (3.5-5.0) g/dL Current Medications Generic Name Dose Route Start Last Admin Trade Name Freq PRN Reason Stop Dose Admin Aspirin 325 mg 11/14/21 09:00 Aspirin 325 Mg Tab PO DAILY BANDAR Sodium Chloride 1,000 mls @ 100 mls/hr 11/13/21 05:15 11/13/21 05:44 Saline 0.9% IV 100 mls/hr .Q10H BANDAR Administration Intake and Output 11/12/21 11/13/21 11/13/21 22:59 06:59 14:59 Other: Weight 83.915 kg 11/13/21 03:30 11/13/21 03:30
[2021-11-13] MEDS: CHOLECALCIFEROL 25 MCG (1000 IU) TABLET PO SCH (10:39)
[2021-11-13 10:47] LABS: Glucose,Whole Blood 130 mg/dL (75-99)
[2021-11-13] MEDS ORDERED: PROCHLORPERAZINE INJ 10 MG/2 ML VIAL IVP PRN (10:56)
--- NOTE | 2021-11-13 10:58 | P.CNNES ---
History of Present Illness Consult date: 11/13/21 Requesting physician: Cornell Del Rio Reason for Consult: tia/vertigo History of Present Illness: This is a 76-year-old gentleman with history of stroke/TIA, diabetes mellitus, hypertension presented emergency department because of dizziness. Patient stated that the symptoms started today around 1am. He woke up around 1 AM from sleep and he wanted to go to the bathroom and he noticed the room is spinning. He said that he is having the sensation of room spinning at rest and with position and he has nausea and vomiting. Denies of any diplopia, ringing of the ears or any new hearing loss. Denies any the fever, any recent infection prior to this. He denies of any focal weakness, numbness, difficulty getting his words out. Patient stated that today in the morning he felt better after receiving the medication from the ED of Compazine, Benadryl. Of note patient stated that the he had similar presentation in the past about a year to a year and a half ago and had extensive testing and his ENT attending and notified them that the the blood vessel was narrowed in the brain and he had a stroke and the patient had to do exercises from what is seems as Chloé's maneuver. Some of the workup in the hospital consisted of: Initial vital signs is blood pressure of 139/94, heart rate of 71, respiratory of 16, temperature of 97.8 Fahrenheit oral and pulse ox of 96% room air. CBC with differential is unremarkable Chemistry panel is sodium was 134 glucose is 139, plasma lactic acid is 2.7 otherwise the rest is unremarkable. Calcium 7.1, phosphorus is 3.2, magnesium is 1.6, AST and ALT is within normal limits CT of the head is reported as cerebral atrophy. No acute intracranial normality. No change. I personally reviewed the CT of the head there is no acute or subacute ischemia and there is no intracranial hemorrhage. Review of Systems Review of system: The 12 point system was reviewed and apparent positive and negative per HPI. Past Medical History Past Medical History: CVA/TIA, Diabetes Mellitus, GERD/Reflux, Hypertension, Osteoarthritis (OA), Pneumonia Additional Past Medical History / Comment(s): MULTIPLE TIA'S (7) - RIGHT SIDED WEAKNESS RESOLVED.- SLIGHT MEMORY IMPAIRMENT., VARICOSE VEINS, KIDNEY STONES, LICHEN PLANUS ON HIS LEGS, GARETH MARTINEZ.,DIABETES RESOLVED WITH WT LOSS., NOW HAS EPISODES OF HYPOGLYCEMIA., PINCHED NERVE NECK WITH PAIN IN NECK & SHOULDERS.,RECEIVING INJECTIONS FOR NECK PAIN, RIGHT ARM GOES NUMB AND A COUPLE FINGERS ARE NUMB., TORN RIGHT ROTATOR CUFF., BPH WITH UROLIFT PROCEDURE., PT HAS 2 METAL STENTS FROM HIS GUM TO SINUS CAVITY., ORAL LEUKOPLAKIA SURGERY., HX OF COLON POLYPS. History of Any Multi-Drug Resistant Organisms: None Reported Past Surgical History: Cholecystectomy Additional Past Surgical History / Comment(s): kidney stones removed, UROLIFT., DENTAL PROCEDURE WITH METAL STENTS FROM GUMS TO SINUS CAVITY., ORAL LEUKOPLAKIA SURGERY, . Past Anesthesia/Blood Transfusion Reactions: No Reported Reaction Additional Past Anesthesia/Blood Transfusion Reaction / Comment(s): HX OF PASSING OUT WITH STARTING IV Past Psychological History: Anxiety Smoking Status: Former smoker Past Alcohol Use History: Occasional Past Drug Use History: None Reported - Past Family History Mother Family Medical History: No Reported History Medications and Allergies Home Medications Medication Instructions Recorded Confirmed Type L.acidoph,Paracasei, B.lactis 1 cap PO DAILY 06/27/18 11/13/21 History [Probiotic] Losartan Potassium [Cozaar] 100 mg PO HS 06/27/18 11/13/21 History Aloe Vera 5,000 mg PO DAILY 11/13/21 11/13/21 History Cholecalciferol (Vitamin D3) 75 mcg PO DAILY 11/13/21 11/13/21 History [Vitamin D3 (3000 Iu)] Curcumin 1 tab PO DAILY 11/13/21 11/13/21 History Liver Tonic 1 tab PO DAILY 11/13/21 11/13/21 History True Vision 1 cap PO DAILY 11/13/21 11/13/21 History Allergies Allergy/AdvReac Type Severity Reaction Status Date / Time lisinopril Allergy Unknown BODY Verified 11/13/21 07:19 ACHES, EXHAUSTION, PAIN amlodipine Allergy SEVERE LEG Verified 11/13/21 07:19 PAIN, "MESSES UP HIS THINKING" ciprofloxacin [From Cipro] AdvReac Unknown SLURRED Verified 11/13/21 07:19 SPEECH ezetimibe [From [place]et[place]] AdvReac Unknown BODY ACHES Verified 11/13/21 07:19 ofloxacin [From Floxin] AdvReac Unknown SLURRED Verified 11/13/21 07:19 SPEECH hydrocodone [From [place]] AdvReac Stomach Verified 11/13/21 07:19 upset, constipation moxifloxacin HCl AdvReac TREMBLE , Verified 11/13/21 07:19 [From Avelox] LIGHTHEADED, WEAK fluoroquinolones Allergy Itching Uncoded 11/13/21 07:19 Physical Examination - Vital Signs Vital Signs: Vital Signs Temp Pulse Pulse Resp BP BP BP 11/13/21 08:50 68 18 131/84 122/81 11/13/21 08:37 97.4 F L 68 18 11/13/21 08:06 71 18 141/88 11/13/21 06:19 72 18 167/85 11/13/21 05:19 73 16 153/88 11/13/21 03:19 97.8 F 11/13/21 03:15 71 16 139/94 BP Pulse Ox 11/13/21 08:50 127/76 11/13/21 08:37 97 11/13/21 08:06 96 11/13/21 06:19 11/13/21 05:19 11/13/21 03:19 11/13/21 03:15 Intake and Output 11/12/21 11/13/21 11/13/21 22:59 06:59 14:59 Other: Weight 83.915 kg GENERAL: The patient is lying in bed and is not in mild acute distress. CHEST: The heart rate is regular rate rhythm. No murmurs to auscultation. No carotid bruit bilaterally. LUNG: Clear to auscultation bilaterally no wheezing noted throughout. Not labored breathing. ABDOMEN/GI: Bowel sounds present in all 4 quadrants. No tenderness to palpation throughout. NEUROLOGICAL: Higher mental function: The patient is awake, alert, oriented to self, place and time. Patient is following commands. No aphasia and no neglect. Cranial nerves: The pupils are round, equal and reactive to light and accommodation. Visual perkins are full to confrontation throughout. Extraocular movement is rotatory nystagmus looking to left and upward. Facial sensation is normal to touch throughout. The facial strength is normal throughout. Hearing is mildly decreased bilaterally to hand rub. Tongue is midline and moved [id number] without any difficulty. No dysarthria is noted. Shoulder shrug is normal bilaterally. Motor: Gait is attempted but could not since was severely dizzy. The strength is 5 over 5 throughout. Normal tone and bulk. Cerebellum: Normal finger to nose heel to alexander bilaterally. Sensation: Sensation is normal to touch throughout. Reflexes (right/left): 2+ throughout. Plantars are downgoing bilaterally. Results - Laboratory Findings CBC and BMP: 11/13/21 03:30 11/13/21 03:30 Abnormal Lab Findings: Abnormal Labs 11/13/21 11/13/21 11/13/21 03:30 03:30 03:30 RBC 4.28 L APTT 21.1 L Sodium 134 L Carbon Dioxide 19 L BUN 28 H Glucose 139 H Plasma Lactic Acid Mike 11/13/21 11/13/21 03:30 07:43 RBC APTT Sodium Carbon Dioxide BUN Glucose Plasma Lactic Acid Mike 2.7 H* 2.7 H* Assessment and Plan Assessment: Vertigo Appears peripheral > central. History of reported stroke/TIA about 1-1.5 years ago History of diabetes mellitus Hypertension on presentation slightly elevated Plan: CT of the head is unremarkable. I ordered orthostatic vitals; is supine blood pressure of 127/76, sitting is 131/84 and standing is 122/81. Orthostatic is negative. Ordered MRI Brain with IAC and MRA head and neck. In the ED the patient was started on aspirin 325mg daily. Patient stated he cannot get statin since has muscle pain. The patient was given Benadryl, Zofran and Compazine once. I Started the patient on Antivert 12.5mg 1 tab tid schedule and Compazine 5mg 1 tab q4h PRN. Lipid panel is ordered by the ED team is pending Continue neuro checks Consulted PT and OT for gait training We'll defer the rest of the medical management to the primary team For DVT prophylaxis: Placed on subq heparin 5000U every 12 hours. The plan is discussed with the patient, his and his nurse. Thank you for the consultation Topher Rogers M.D. Neuro-hospitalist Time with Patient: Greater than 30
[2021-11-13] MEDS: INSULIN ASPART (NovoLOG) 100 UNIT/ML VIAL SQ SCH ×3 (12:15→21:14)
[2021-11-13 12:16] LABS: Glucose,Whole Blood 116 mg/dL (75-99)
[2021-11-13] MEDS: MECLIZINE 12.5 MG TAB PO SCH ×3 (12:17→21:43)
[2021-11-13] MEDS ORDERED: ACETAMINOPHEN TAB 325 MG TAB PO PRN (12:42)
[2021-11-13] MEDS ORDERED: ONDANSETRON 4 MG/2 ML VIAL IVP PRN (13:00)
--- NOTE | 2021-11-13 13:03 | P.HPIM ---
History of Present Illness H&P Date: 11/13/21 Chief Complaint: Dizziness Patient is a pleasant 76-year-old male who presented to the emergency room for dizziness and inability to walk. Patient states he has a history of a stroke with similar symptoms. Patient also has a pertinent medical history of type 2 diabetes, GERD, hypertension, osteoarthritis, multiple TIAs, varicose veins, kidney stones, BPH status post urolift, cholecystectomy, and anxiety. Patient reports having significant nausea and vomiting from dizziness. States he is unable to stand as the room starts spinning when he moves. Brain CT shows cere bral atrophy with no acute intracranial abnormality. EKG shows sinus rhythm with a ventricle rate of 75 bpm. Neurology was consulted, MRI is ordered. Patient requests Dr. Rodriguez ENT to see him to rule out vertigo, he states that Dr. Rodriguez found his previous stroke. Review of Systems Constitutional: Denies chills, Denies fever Ears: deny: earache Ears, nose, mouth and throat: Denies dysphagia, Denies sore throat Cardiovascular: Denies chest pain, Denies high blood pressure Respiratory: Denies cough, Denies dyspnea Gastrointestinal: Reports nausea, Reports vomiting, Denies abdominal pain, Denies diarrhea Genitourinary: Denies dysuria Musculoskeletal: Reports frequent falls, Reports gait dysfunction, Denies muscle weakness Integumentary: Denies rash, Denies wounds Neurological: Reports gait dysfunction, Reports lack of coordination, Reports vertigo, Denies head injury, Denies headaches, Denies seizures Psychiatric: Denies anxiety Endocrine: Denies high blood sugars, Denies palpitations Hematologic/Lymphatic: Denies easy bruising Allergic/Immunologic: Denies angioedema, Denies wheezing Past Medical History Past Medical History: CVA/TIA, Diabetes Mellitus, GERD/Reflux, Hypertension, Osteoarthritis (OA), Pneumonia Additional Past Medical History / Comment(s): MULTIPLE TIA'S (7) - RIGHT SIDED WEAKNESS RESOLVED.- SLIGHT MEMORY IMPAIRMENT., VARICOSE VEINS, KIDNEY STONES, LICHEN PLANUS ON HIS LEGS, GARETH MARTINEZ.,DIABETES RESOLVED WITH WT LOSS., NOW HAS EPISODES OF HYPOGLYCEMIA., PINCHED NERVE NECK WITH PAIN IN NECK & SHOULDERS.,RECEIVING INJECTIONS FOR NECK PAIN, RIGHT ARM GOES NUMB AND A COUPLE FINGERS ARE NUMB., TORN RIGHT ROTATOR CUFF., BPH WITH UROLIFT PROCEDURE., PT HAS 2 METAL STENTS FROM HIS GUM TO SINUS CAVITY., ORAL LEUKOPLAKIA SURGERY., HX OF COLON POLYPS. History of Any Multi-Drug Resistant Organisms: None Reported Past Surgical History: Cholecystectomy Additional Past Surgical History / Comment(s): kidney stones removed, UROLIFT., DENTAL PROCEDURE WITH METAL STENTS FROM GUMS TO SINUS CAVITY., ORAL LEUKOPLAKIA SURGERY, . Past Anesthesia/Blood Transfusion Reactions: No Reported Reaction Additional Past Anesthesia/Blood Transfusion Reaction / Comment(s): HX OF PASSING OUT WITH STARTING IV Past Psychological History: Anxiety Smoking Status: Former smoker Past Alcohol Use History: Occasional Past Drug Use History: None Reported - Past Family History Mother Family Medical History: No Reported History Medications and Allergies Home Medications Medication Instructions Recorded Confirmed Type L.acidoph,Paracasei, B.lactis 1 cap PO DAILY 06/27/18 11/13/21 History [Probiotic] Losartan Potassium [Cozaar] 100 mg PO HS 06/27/18 11/13/21 History Aloe Vera 5,000 mg PO DAILY 11/13/21 11/13/21 History Cholecalciferol (Vitamin D3) 75 mcg PO DAILY 11/13/21 11/13/21 History [Vitamin D3 (3000 Iu)] Curcumin 1 tab PO DAILY 11/13/21 11/13/21 History Liver Tonic 1 tab PO DAILY 11/13/21 11/13/21 History True Vision 1 cap PO DAILY 11/13/21 11/13/21 History Allergies Allergy/AdvReac Type Severity Reaction Status Date / Time lisinopril Allergy Unknown BODY Verified 11/13/21 07:19 ACHES, EXHAUSTION, PAIN amlodipine Allergy SEVERE LEG Verified 11/13/21 07:19 PAIN, "MESSES UP HIS THINKING" ciprofloxacin [From Cipro] AdvReac Unknown SLURRED Verified 11/13/21 07:19 SPEECH ezetimibe [From Zetia] AdvReac Unknown BODY ACHES Verified 11/13/21 07:19 ofloxacin [From Floxin] AdvReac Unknown SLURRED Verified 11/13/21 07:19 SPEECH hydrocodone [From [place]] AdvReac Stomach Verified 11/13/21 07:19 upset, constipation moxifloxacin HCl AdvReac TREMBLE , Verified 11/13/21 07:19 [From Avelox] LIGHTHEADED, WEAK fluoroquinolones Allergy Itching Uncoded 11/13/21 07:19 Physical Exam Vitals: Vital Signs Temp Pulse Pulse Resp BP BP BP 11/13/21 12:00 74 18 132/76 11/13/21 10:35 71 18 11/13/21 10:06 70 18 142/75 11/13/21 08:50 68 18 131/84 122/81 11/13/21 08:37 97.4 F L 68 18 11/13/21 08:06 71 18 141/88 11/13/21 06:19 72 18 167/85 11/13/21 05:19 73 16 153/88 11/13/21 03:19 97.8 F 11/13/21 03:15 71 16 139/94 BP Pulse Ox 11/13/21 12:00 96 11/13/21 10:35 95 11/13/21 10:06 94 L 11/13/21 08:50 127/76 11/13/21 08:37 97 11/13/21 08:06 96 11/13/21 06:19 11/13/21 05:19 11/13/21 03:19 11/13/21 03:15 Intake and Output 11/12/21 11/13/21 11/13/21 22:59 06:59 14:59 Other: Weight 83.915 kg - Constitutional General appearance: cooperative, no acute distress - EENT Eyes: EOMI, PERRLA ENT: normal oropharynx Ears: bilateral: normal - Neck Neck: normal ROM - Respiratory Respiratory: bilateral: CTA - Cardiovascular Heart rate: 70 Rhythm: regular Heart sounds: normal: S1, S2 radial pulse Peripheral Pulses: bilateral: Normal - Gastrointestinal General gastrointestinal: normal bowel sounds, soft - Integumentary Integumentary: normal - Neurologic Neurologic: focal deficits - Musculoskeletal Unable to get off without getting dizzy - Psychiatric Psychiatric: A&O x's 3, appropriate affect, intact judgment & insight Results CBC & Chem 7: 11/13/21 03:30 11/13/21 03:30 Labs: Abnormal Lab Results - Last 24 Hours (Table) 11/13/21 11/13/21 11/13/21 Range/Units 03:30 03:30 03:30 RBC 4.28 L (4.30-5.90) m/uL APTT 21.1 L (22.0-30.0) sec Sodium 134 L (137-145) mmol/L Carbon Dioxide 19 L (22-30) mmol/L BUN 28 H (9-20) mg/dL Glucose 139 H (74-99) mg/dL POC Glucose (mg/dL) (75-99) mg/dL Plasma Lactic Acid Mike (0.7-2.0) mmol/L 11/13/21 11/13/21 11/13/21 Range/Units 03:30 07:43 10:46 RBC (4.30-5.90) m/uL APTT (22.0-30.0) sec Sodium (137-145) mmol/L Carbon Dioxide (22-30) mmol/L BUN (9-20) mg/dL Glucose (74-99) mg/dL POC Glucose (mg/dL) 130 H (75-99) mg/dL Plasma Lactic Acid Mike 2.7 H* 2.7 H* (0.7-2.0) mmol/L 11/13/21 Range/Units 12:14 RBC (4.30-5.90) m/uL APTT (22.0-30.0) sec Sodium (137-145) mmol/L Carbon Dioxide (22-30) mmol/L BUN (9-20) mg/dL Glucose (74-99) mg/dL POC Glucose (mg/dL) 116 H (75-99) mg/dL Plasma Lactic Acid Mike (0.7-2.0) mmol/L CT Scan - head: report reviewed Thrombosis Risk Factor Assmnt - DVT/VTE Prophylaxis DVT/VTE Prophylaxis: Mechanical Prophylaxis ordered, Low risk, early ambulation encouraged - Choose All That Apply Any of the Below Risk Factors Present?: No Other Risk Factors: Yes Each Risk Factor Represents 2 Points: Age 61-74 years Thrombosis Risk Factor Assessment Total Risk Factor Score: 2 Thrombosis Risk Factor Assessment Level: Low Risk Assessment and Plan Assessment: Severe dizziness with associated nausea and vomiting History of TIAs Elevated lactic acid Hypertension Osteoarthritis Anxiety Type 2 diabetes, managed by diet Plan: ENT consult to evaluate for vertigo versus TIA, mri ordered Neurology consult to rule out stroke Antivert and compazine for dizziness continue neuro exams protonix for GI prophylaxis Further recommendations to come based on patient's clinical course Time with Patient: Greater than 30
[2021-11-13 14:06] LABS: Appearance,Urine Clear (Clear); Bilirubin,Urine Negative (Negative); Blood,Urine Negative (Negative); Color,Urine Light Yellow; Glucose,Urine (UA) Negative (Negative); Ketones,Urine Negative (Negative); Leukocyte Esterase,Urine Small (Negative); Nitrite,Urine Negative (Negative); PH, Urine 6.5 (5.0-8.0); Protein,Urine Negative (Negative); RBC,Urine <1 /hpf (0-5); Squamous Epithelial Cell,Urine <1 /hpf (0-4); Urobilinogen,Urine <2.0 mg/dL (<2.0); WBC,Urine 4 /hpf (0-5)
[2021-11-13 17:35] LABS: Glucose,Whole Blood 105 mg/dL (75-99)
[2021-11-13 20:33] LABS: Glucose,Whole Blood 185 mg/dL (75-99)
[2021-11-13] MEDS: HEPARIN SODIUM,PORCINE/PF 5,000 UNIT/0.5 ML SYRINGE SQ SCH (21:14)
[2021-11-13] MEDS: MAGNESIUM OXIDE 400 MG TAB PO SCH (21:15)
[2021-11-13] MEDS: PANTOPRAZOLE 40 MG/10 ML VIAL IVP SCH (21:15)
[2021-11-13] MEDS: LOSARTAN 50 MG TAB PO SCH (21:15)
[2021-11-13] MEDS: MELATONIN 3 MG TABLET PO SCH (21:43)
[2021-11-14] MEDS: SODIUM CHLORIDE 0.9% 1,000 ML IV SCH ×2 (04:26→11:36)
[2021-11-14 07:24] LABS: Glucose,Whole Blood 109 mg/dL (75-99)
[2021-11-14] MEDS: INSULIN ASPART (NovoLOG) 100 UNIT/ML VIAL SQ SCH ×4 (07:39→21:18)
[2021-11-14] MEDS: MECLIZINE 12.5 MG TAB PO SCH ×3 (08:51→22:22)
[2021-11-14] MEDS: CHOLECALCIFEROL 25 MCG (1000 IU) TABLET PO SCH (08:52)
[2021-11-14] MEDS: HEPARIN SODIUM,PORCINE/PF 5,000 UNIT/0.5 ML SYRINGE SQ SCH ×2 (08:52→20:48)
[2021-11-14] MEDS: PANTOPRAZOLE 40 MG/10 ML VIAL IVP SCH (08:53)
[2021-11-14] MEDS ORDERED: ASPIRIN 325 MG TAB PO SCH (09:00)
[2021-11-14 09:20] LABS: HDL Cholesterol 34.8 mg/dL (40.00-60.00)
[2021-11-14 09:32] LABS: Chol/HDL Ratio 6.06 Ratio
[2021-11-14] MEDS: polyethylene glycoL 3350 17 GM POWD.PACK PO SCH (11:33)
[2021-11-14] MEDS: DOCUSATE 100 MG CAP PO SCH (11:33)
[2021-11-14] MEDS: PANTOPRAZOLE 40 MG TABLET PO SCH ×2 (11:33→17:47)
--- NOTE | 2021-11-14 11:34 | P.PN ---
Subjective Progress Note Date: 11/14/21 Principal diagnosis: Dizziness Patient is a pleasant 76-year-old male who presented to the emergency room for dizziness and inability to walk. Patient states he has a history of a stroke with similar symptoms. Patient also has a pertinent medical history of type 2 diabetes, GERD, hypertension, osteoarthritis, multiple TIAs, varicose veins, kidney stones, BPH status post urolift, cholecystectomy, and anxiety. Patient reports having significant nausea and vomiting from dizziness. States he is unable to stand as the room starts spinning when he moves. Brain CT shows cere bral atrophy with no acute intracranial abnormality. EKG shows sinus rhythm with a ventricle rate of 75 bpm. Neurology was consulted, MRI is ordered. Patient requests Dr. Rodriguez ENT to see him to rule out vertigo, he states that Dr. Rodriguez found his previous stroke. 11/14/2021 Patient was seen and assessed at bedside. Patient was getting up with physical therapy, was able to stand without getting dizzy and walked down the [place]. Patient reports feeling constipated and requested stool softener. Patient denied chest pain, shortness of breath or fever. Orthostatic vital signs negative. Waiting for MRI imaging. Objective - Vital Signs Vital signs: Vital Signs Temp 97.6 F 11/14/21 07:00 Pulse 49 L 11/14/21 07:00 Resp 18 11/14/21 07:00 BP 159/75 11/14/21 07:00 Pulse Ox 97 11/14/21 07:00 Intake & Output 11/13/21 11/14/21 11/14/21 18:59 06:59 18:59 Intake Total 118 118 Balance 118 118 Weight 83.915 kg Intake: Oral 118 118 Other: # Voids 1 2 - Constitutional General appearance: Present: cooperative, no acute distress - EENT Eyes: Present: EOMI, PERRLA ENT: Present: normal oropharynx Ears: bilateral: normal - Neck Neck: Present: normal ROM - Respiratory Respiratory: bilateral: CTA - Cardiovascular Heart rate: 70 Rhythm: regular Heart sounds: normal: S1, S2 - Peripheral pulses radial pulse Peripheral Pulses: bilateral: Normal - Gastrointestinal General gastrointestinal: Present: normal bowel sounds, soft - Integumentary Integumentary: Present: normal - Neurologic Neurologic: Present: CNII-XII intact - Musculoskeletal Musculoskeletal: Present: gait normal - Psychiatric Psychiatric: Present: A&O x's 3, appropriate affect - Allied health notes Allied health notes reviewed: nursing - Labs CBC & Chem 7: 11/13/21 03:30 11/13/21 03:30 Labs: Abnormal Lab Results - Last 24 Hours (Table) 11/13/21 11/13/21 11/13/21 Range/Units 03:30 12:14 13:35 POC Glucose (mg/dL) 116 H (75-99) mg/dL Triglycerides 444.00 H (0.00-149.00) mg/dL Cholesterol 211.00 H (0.00-200.00) mg/dL HDL Cholesterol 34.80 L (40.00-60.00) mg/dL Ur Leukocyte Esterase Small H (Negative) 11/13/21 11/13/21 11/14/21 Range/Units 17:33 20:31 07:23 POC Glucose (mg/dL) 105 H 185 H 109 H (75-99) mg/dL Triglycerides (0.00-149.00) mg/dL Cholesterol (0.00-200.00) mg/dL HDL Cholesterol (40.00-60.00) mg/dL Ur Leukocyte Esterase (Negative) Assessment and Plan Assessment: Severe dizziness with associated nausea and vomiting hyperlipidemia History of TIAs Elevated lactic acid, resolved Hypertension Osteoarthritis Anxiety Type 2 diabetes, managed by diet Plan: Awaiting MRI imaging We'll discuss starting statin therapy Antivert and compazine for dizziness continue neuro exams protonix for GI prophylaxis stool softeners ordered Further recommendations to come based on patient's clinical course Time with Patient: Greater than 30
[2021-11-14 12:08] LABS: Glucose,Whole Blood 130 mg/dL (75-99)
--- NOTE | 2021-11-14 12:11 | P.PN ---
Subjective Progress Note Date: 11/14/21 The patient is seen at bedside and feels his dizziness is improved compared to yesterday but has some dizziness earlier today. Denies any new neurological problems. He stated he walking today and as stated earlier doing better. Objective - Vital Signs Vital signs: Vital Signs Temp 97.6 F 11/14/21 07:00 Pulse 49 L 11/14/21 07:00 Resp 18 11/14/21 07:00 BP 159/75 11/14/21 07:00 Pulse Ox 97 11/14/21 07:00 Intake & Output 11/13/21 11/14/21 11/14/21 18:59 06:59 18:59 Intake Total 118 118 Balance 118 118 Weight 83.915 kg Intake: Oral 118 118 Other: # Voids 1 2 - Exam GENERAL: The patient is lying in bed and is not in mild acute distress. NEUROLOGICAL: Higher mental function: The patient is awake, alert, oriented to self, place and time. Patient is following commands. No aphasia and no neglect. Cranial nerves: The pupils are round, equal and reactive to light and accommodation. Visual perkins are full to confrontation throughout. Extraocular movement is rotatory nystagmus looking to left and upward but better today. Facial sensation is normal to touch throughout. The facial strength is normal throughout. Hearing is mildly decreased bilaterally to hand rub. Tongue is midline and moved [id number] without any difficulty. No dysarthria is noted. Shoulder shrug is normal bilaterally. Motor: Gait is attempted but could not since was severely dizzy. The strength is 5 over 5 throughout. Normal tone and bulk. Cerebellum: Normal finger to nose heel to alexander bilaterally. Sensation: Sensation is normal to touch throughout. Reflexes (right/left): 2+ throughout. Plantars are downgoing bilaterally. WORK-UP: CT of the head is reported as cerebral atrophy. No acute intracranial normality. No change. I personally reviewed the CT of the head there is no acute or subacute ischemia and there is no intracranial hemorrhage. - Labs CBC & Chem 7: 11/13/21 03:30 11/13/21 03:30 Labs: Abnormal Lab Results - Last 24 Hours (Table) 11/13/21 11/13/21 11/13/21 Range/Units 03:30 12:14 13:35 POC Glucose (mg/dL) 116 H (75-99) mg/dL Triglycerides 444.00 H (0.00-149.00) mg/dL Cholesterol 211.00 H (0.00-200.00) mg/dL HDL Cholesterol 34.80 L (40.00-60.00) mg/dL Ur Leukocyte Esterase Small H (Negative) 11/13/21 11/13/21 11/14/21 Range/Units 17:33 20:31 07:23 POC Glucose (mg/dL) 105 H 185 H 109 H (75-99) mg/dL Triglycerides (0.00-149.00) mg/dL Cholesterol (0.00-200.00) mg/dL HDL Cholesterol (40.00-60.00) mg/dL Ur Leukocyte Esterase (Negative) Assessment and Plan Assessment: Vertigo Appears peripheral > central---improving. History of reported stroke/TIA about 1-1.5 years ago History of diabetes mellitus Hypertension on presentation slightly elevated Plan: CT of the head is unremarkable. Orthostatic vitals is negative. MRI Brain with IAC and MRA head and neck: pending. In the ED the patient was started on aspirin 325mg daily. Patient stated he cannot get statin since has muscle pain. Continue Antivert 12.5mg 1 tab tid schedule and Compazine 5mg 1 tab q4h PRN. Continue neuro checks Consulted PT and OT for gait training ENT is consulted by primary team. We'll defer the rest of the medical management to the primary team For DVT prophylaxis: On subq heparin 5000U every 12 hours. The plan is discussed with the patient and his nurse. Topher Rogers M.D. Neuro-hospitalist Time with Patient: Less than 30
[2021-11-14] MEDS ORDERED: LORazepam 1 MG TAB PO STA (15:07)
[2021-11-14 17:12] LABS: Glucose,Whole Blood 139 mg/dL (75-99)
--- NOTE | 2021-11-14 19:56 | MR ---
EXAMINATION TYPE: MR brain and iac wo/w con DATE OF EXAM: 11/14/2021 COMPARISON: 10/15/2018 HISTORY: Vertigo. CONTRAST: Standard multiplanar, multisequence MRI departmental protocol images were obtained without contrast a nd with 8 mL intravenous Gadavist gadolinium contrast. There is cerebral cortical atrophy. There is no mass effect or midline shift. There is no evidence of intracranial hemorrhage. Brainstem is intact. There are a few scattered small foci of increased sign al at the solomon-white matter junction both cerebral hemispheres measuring up to 3 mm. The total number s less than 10. The corpus callosum is intact. Cerebellum is intact. There is no evidence of orbital mass. Sella turc ica appears normal. The internal auditory canals appear normal. There is no evidence of cerebellopontine angle mass. There is normal appearance of the acoustic nerve and vestibular nerve. The diffusion images show no evidence of an acute infarct. On the T2 images there is symmetric decreased signal in the basal ganglia involving the globus pallid us and the caudate nuclei. IMPRESSION: No focal posterior fossa abnormality. Decreased signal in the basal ganglia could relate to degenerative metabolic disease. This appears un changed compared to old exam. There are some scattered tiny white matter nonspecific high signal foci that could relate to some min imal microvascular ischemia.
--- NOTE | 2021-11-14 19:59 | MR ---
EXAMINATION TYPE: MR angio head wo con DATE OF EXAM: 11/14/2021 COMPARISON: None HISTORY: Vertigo. MR angiographic images were obtained of the intracerebral arterial circulation without contrast. There is arterial flow in the anterior middle and posterior cerebral arteries. There is arterial flow in the vertebrobasilar artery system. There is no mass effect. There is no evidence of intracranial aneurysm or neovascularity. There is arterial flow in both distal vertebral arteries. No evidence of intracranial arterial stenosis. No mass effect. IMPRESSION: Normal MR angiography of the brain.
[2021-11-14] MEDS: MAGNESIUM OXIDE 400 MG TAB PO SCH (20:48)
[2021-11-14] MEDS: LOSARTAN 50 MG TAB PO SCH (20:48)
[2021-11-14 20:52] LABS: Glucose,Whole Blood 165 mg/dL (75-99)
[2021-11-14] MEDS ORDERED: MAGNESIUM HYDROXIDE 2,400 MG/10 ML CUP PO PRN (22:05)
[2021-11-14] MEDS: MELATONIN 3 MG TABLET PO SCH (22:22)
[2021-11-15] MEDS: SODIUM CHLORIDE 0.9% 1,000 ML IV SCH ×2 (00:01→03:25)
[2021-11-15 07:07] LABS: Glucose,Whole Blood 120 mg/dL (75-99)
[2021-11-15 07:32] VITALS: BP 174/83; PULSE 58; RESP 18; TEMP 98.1
[2021-11-15] MEDS: INSULIN ASPART (NovoLOG) 100 UNIT/ML VIAL SQ SCH (07:55)
[2021-11-15] MEDS ORDERED: ASPIRIN 81 MG PO SCH (09:00)
[2021-11-15] MEDS: HEPARIN SODIUM,PORCINE/PF 5,000 UNIT/0.5 ML SYRINGE SQ SCH (09:45)
[2021-11-15] MEDS: CHOLECALCIFEROL 25 MCG (1000 IU) TABLET PO SCH (09:46)
[2021-11-15] MEDS: MECLIZINE 12.5 MG TAB PO SCH (09:46)
[2021-11-15] MEDS: DOCUSATE 100 MG CAP PO SCH (09:46)
[2021-11-15] MEDS: polyethylene glycoL 3350 17 GM POWD.PACK PO SCH (09:46)
[2021-11-15] MEDS: PANTOPRAZOLE 40 MG TABLET PO SCH (09:46)
--- NOTE | 2021-11-15 11:41 | P.PN ---
Subjective Progress Note Date: 11/15/21 The patient is seen at bedside and feels he is doing better. Denies any further dizziness. MRI Brain and IIAC w/ and w/o: Is reported as no focal posterior fossa abnormality. Decrease signal in the basal ganglia could relate to degenerative metabolic disease. This appears unchagned to compared old exam. There are some scattered tiny white matter nonspecific high signal foci that could relate to some minimal microvascular ischemia. I personally reviewed MRI Brain and there is no acute or subacute ischemia. MRA head is reported as normal. Objective - Vital Signs Vital signs: Vital Signs Temp 98.1 F 11/15/21 07:00 Pulse 58 L 11/15/21 07:00 Resp 18 11/15/21 07:00 BP 174/83 11/15/21 07:00 Pulse Ox 98 11/15/21 07:00 Intake & Output 11/14/21 11/15/21 11/15/21 18:59 06:59 18:59 Intake Total 354 118 Balance 354 118 Intake: Oral 354 118 Other: # Voids 2 1 # Bowel Movements 1 - Exam GENERAL: The patient is lying in bed and is not in mild acute distress. NEUROLOGICAL: Higher mental function: The patient is awake, alert, oriented to self, place and time. Patient is following commands. No aphasia and no neglect. Cranial nerves: The pupils are round, equal and reactive to light and accommodation. Visual perkins are full to confrontation throughout. Extraocular movement is rotatory nystagmus looking to left and upward but better today. Facial sensation is normal to touch throughout. The facial strength is normal throughout. Hearing is mildly decreased bilaterally to hand rub. Tongue is midline and moved [id number] without any difficulty. No dysarthria is noted. Shoulder shrug is normal bilaterally. Motor: Gait is attempted but could not since was severely dizzy. The strength is 5 over 5 throughout. Normal tone and bulk. Cerebellum: Normal finger to nose heel to alexander bilaterally. Sensation: Sensation is normal to touch throughout. Reflexes (right/left): 2+ throughout. Plantars are downgoing bilaterally. WORK-UP: CT of the head is reported as cerebral atrophy. No acute intracranial normality. No change. I personally reviewed the CT of the head there is no acute or subacute ischemia and there is no intracranial hemorrhage. MRI Brain and IIAC w/ and w/o: Is reported as no focal posterior fossa abnormality. Decrease signal in the basal ganglia could relate to degenerative metabolic disease. This appears unchagned to compared old exam. There are some scattered tiny white matter nonspecific high signal foci that could relate to some minimal microvascular ischemia. I personally reviewed MRI Brain and there is no acute or subacute ischemia. MRA head is reported as normal. - Labs CBC & Chem 7: 11/13/21 03:30 11/13/21 03:30 Labs: Abnormal Lab Results - Last 24 Hours (Table) 11/14/21 11/14/21 11/14/21 Range/Units 12:07 17:09 20:50 POC Glucose (mg/dL) 130 H 139 H 165 H (75-99) mg/dL 11/15/21 Range/Units 07:06 POC Glucose (mg/dL) 120 H (75-99) mg/dL Assessment and Plan Assessment: Peripheral Vertigo---improved. No stroke on MRI Brain History of reported stroke/TIA about 1-1.5 years ago History of diabetes mellitus Hypertension on presentation slightly elevated Plan: In the ED the patient was started on aspirin 325mg daily and I decreased it to his home dose of 81mg daily. Patient stated he cannot get statin since has muscle pain. Continue Antivert 12.5mg 1 tab tid schedule and Compazine 5mg 1 tab q4h PRN. Continue neuro checks Consulted PT and OT for gait training ENT is consulted by primary team. He was notified that, he need to see them as outpatient. We'll defer the rest of the medical management to the primary team For DVT prophylaxis: On subq heparin 5000U every 12 hours. The plan is discussed with the patient and his nurse. There is no further neurological work-up. Neurology will sign off. Please reconsult if needed. Topher Rogers M.D. Neuro-hospitalist Time with Patient: Less than 30
[2021-11-15 11:45] LABS: Glucose,Whole Blood 216 mg/dL (75-99)
== END 2021-11-15 14:15 | disposition home or self-care (01) ==
LOC: EC 03:11 → 6NMEDSUR 05:05
PROVIDERS: ADMIT Family Medicine; ATTEND Family Medicine
DX: H81.399 Other peripheral vertigo, unspecified ear (principal); R11.2 Nausea with vomiting, unspecified; R79.89 Other specified abnormal findings of blood chemistry; I10 Essential (primary) hypertension; M19.90 Unspecified osteoarthritis, unspecified site; F41.9 Anxiety disorder, unspecified; E11.649 Type 2 diabetes mellitus with hypoglycemia without coma; E11.41 Type 2 diabetes mellitus with diabetic mononeuropathy; E86.0 Dehydration; E78.5 Hyperlipidemia, unspecified; K59.00 Constipation, unspecified; K21.9 Gastro-esophageal reflux disease without esophagitis; N40.0 Benign prostatic hyperplasia without lower urinary tract symptoms; M54.2 Cervicalgia; I83.90 Asymptomatic varicose veins of unspecified lower extremity; Q28.8 Other specified congenital malformations of circulatory system; M75.101 Unspecified rotator cuff tear or rupture of right shoulder, not specified as traumatic; K13.21 Leukoplakia of oral mucosa, including tongue; L43.9 Lichen planus, unspecified; Z79.82 Long term (current) use of aspirin; Z79.899 Other long term (current) drug therapy; Z86.73 Personal history of transient ischemic attack (TIA), and cerebral infarction without residual deficits; Z87.19 Personal history of other diseases of the digestive system; Z87.442 Personal history of urinary calculi; Z87.891 Personal history of nicotine dependence; Z90.49 Acquired absence of other specified parts of digestive tract; Z87.01 Personal history of pneumonia (recurrent); Z86.19 Personal history of other infectious and parasitic diseases; Z88.5 Allergy status to narcotic agent; Z88.1 Allergy status to other antibiotic agents; Z88.8 Allergy status to other drugs, medicaments and biological substances
CPT/HCPCS: 99285; 96374; 96372 ×3; 96375; 96361; 36415; 93005; 97162; 97166; 83880; 80061; 80053; 83605; 83735; 84100; 84484; 85025; 85610; 85730; 81001; 83721; 70450; 70544; 70553; G0378 ×3; J1200; J0780; J2405; C9113; J1644 ×3; A9585

== ENCOUNTER → 2022-03-26 | Outpatient (CLI) | payer MEDICARE ==
--- NOTE | 2022-03-27 15:08 | CT ---
EXAMINATION TYPE: CT abdomen pelvis wo con DATE OF EXAM: 03/26/2022 COMPARISON: HISTORY: flank pain CT DLP: 669.2 mGycm Automated exposure control for dose reduction was used. TECHNIQUE: Helical acquisition of images from the lung bases through the pelvis. FINDINGS: Lack of intravenous contrast could compromise sensitivity. LUNG BASES: Basilar subpleural interstitial changes are present, some minimal honeycombing, no pleura l pericardial effusion. There are some coronary artery calcifications. AORTA: No significant abnormality is appreciataed. LIVER/GB: No significant abnormality is appreciated, patient is post. PANCREAS: No significant abnormality is seen. SPLEEN: No significant change is seen, metallic band is present along the lateral margin of the splee n similar to prior. ADRENALS: No significant abnormality is seen. KIDNEYS: No significant change is seen. Faint parenchymal calcification suspected in the right kidney at the lower pole, vague punctate calcification present at the upper pole the right kidney REPRODUCTIVE ORGANS: Metallic seeds are present at the level the prostate, there is some associated calcifications, prostate shows a similar appearance URINARY BLADDER: Thickening of the urinary bladder wall may be due to chronic outlet obstruction BOWEL: Diverticular changes are associated with the colon. The appendix is normal FREE AIR: No Free Air is visible. ASCITES: None visible. PELVIC ADENOPATHY: None visualized. RETROPERITONEAL ADENOPATHY: No Retroperitoneal Adenopathy visible. OSSEOUS STRUCTURES: Degenerative disc disease and facet arthropathy noted in the lower lumbar spine. IMPRESSION: NO ACUTE ABNORMALITY
== END | disposition home or self-care (01) ==
LOC: RADCTMAIN 17:24
PROVIDERS: ATTEND Urology
DX: N20.0 Calculus of kidney (principal); N39.9 Disorder of urinary system, unspecified
CPT/HCPCS: 74176

== ENCOUNTER 2022-07-27 15:08 | Observation (INO) | payer MEDICARE ==
[2022-07-27] MEDS ORDERED: NITROGLYCERIN OINT 1 INCH/GM PACKET TOPICAL STA (15:44)
[2022-07-27 15:54] LABS: Basophils # (A) 0.1 k/uL (0-0.2); Basophils % (A) 1 %; Eosinophils # (A) 0.2 k/uL (0-0.7); Eosinophils % (A) 2 %; HGB 15.6 gm/dL (13.0-17.5); Lymphocytes # (A) 1.7 k/uL (1.0-4.8); Lymphocytes % (A) 18 %; MCH 35.2 pg (25.0-35.0); MCHC 36.3 g/dL (31.0-37.0); MCV 96.8 fL (80.0-100.0); Mean Platelet Volume 8.1; Monocytes # (A) 0.5 k/uL (0-1.0); Monocytes % (A) 5 %; Neutrophils # (A) 6.8 k/uL (1.3-7.7); Neutrophils % (A) 73 %; Platelet Count 253 k/uL (150-450); RBC 4.44 m/uL (4.30-5.90); RDW 12.5 % (11.5-15.5); WBC 9.4 k/uL (3.8-10.6)
--- NOTE | 2022-07-27 16:00 | XR ---
EXAMINATION TYPE: XR chest 2V DATE OF EXAM: 07/27/2022 COMPARISON: Chest CT July 01, 2021 HISTORY: Chest pain. TECHNIQUE: Frontal and lateral views of the chest are obtained. FINDINGS: There are chronic parenchymal changes bilaterally without suspicious focal air space opaci ty, pleural effusion, or pneumothorax seen. The cardiac silhouette size is stable and within normal limits. Multilevel spurring in the thoracic spine is present. Cholecystectomy clips noted on lateral view IMPRESSION: Chronic changes without acute pulmonary process.
[2022-07-27 16:04] LABS: Albumin 4.8 g/dL (3.5-5.0); Calcium 10.1 mg/dL (8.4-10.2); Magnesium 1.7 mg/dL (1.6-2.3); Potassium 4.2 mmol/L (3.5-5.1); Total Bilirubin 0.7 mg/dL (0.2-1.3); Total Protein 7.5 g/dL (6.3-8.2)
[2022-07-27 16:12] LABS: Prothrombin Time 10.5 sec (9.0-12.0)
--- NOTE | 2022-07-27 16:24 | ED ---
General Adult HPI - General Chief complaint: Chest Pain Stated complaint: High BP,Chest Pain Time Seen by Provider: 07/27/22 15:29 Source: patient, family, RN notes reviewed Mode of arrival: ambulatory Limitations: no limitations - History of Present Illness Initial comments: Patient is a 77-year-old male presenting to the emergency room with c omplaints of chest pain along with hypertension ongoing for the last 3 days. He states that his chest pain is on the left side and feels like a bruise in nature and is unable to identify any alleviating factors but does note that pressing on the chest wall does elicit some increase in pain at times. He reports that he increased his dose of blood pressure medication to 100 mg from 25; he was previo usly on 25 but had had episodes of hypotension and had had it reduced. He states that he has had no change in symptoms with the increase of his medications and that his hypertension persists. In addition to left-sided chest pain and hypertension he is complaining of shortness of breath worse with exertion denying any rest occasional lightheadedness worse while standing and intermittent nausea which she has been taking Reglan for. He reports that when symptoms began he also felt as though he had a knot in his stomach which has since resolved. He denies any abdominal pain not related to nausea, vomiting, diarrhea, changes in bowel or bladder pattern, headache, diaphoresis, orthopnea, lower extremity edema, fevers or chills. In addition to his hypertensive history he has a past medical history significant for TIAs, diabetes resolved with weight loss, varicose veins, renal stones, BPH with urolift, and anxiety. - Related Data Home Medications Medication Instructions Recorded Confirmed Losartan Potassium [Cozaar] 100 mg PO DAILY 06/27/18 07/27/22 Aloe Vera 400mg 1 tab PO BID 07/27/22 07/27/22 Celecoxib [CeleBREX] 200 mg PO DAILY PRN 07/27/22 07/27/22 Cholecalciferol [Vitamin D3 (25 25 mcg PO DAILY 07/27/22 07/27/22 Mcg = 1000 Iu)] Famotidine [Pepcid] 20 mg PO BID 07/27/22 07/27/22 LORazepam [Ativan] 1 mg PO DAILY PRN 07/27/22 07/27/22 Meclizine [Antivert] 25 mg PO DAILY PRN 07/27/22 07/27/22 Metoclopramide [Reglan] 10 mg PO BID PRN 07/27/22 07/27/22 Natural Astaxanthin 6mg 1 cap PO DAILY 07/27/22 07/27/22 [place] Xl 300mg 1 cap PO BID 07/27/22 07/27/22 Probiotic & Prebiotic Blend 1 cap PO DAILY 07/27/22 07/27/22 Turmeric Root Extract [Turmeric 500 mg PO DAILY 07/27/22 07/27/22 Curcumin] hydroCHLOROthiazide [Hydrodiuril] 25 mg PO DAILY PRN 07/27/22 07/27/22 metFORMIN HCL ER [Glucophage XR] 500 mg PO DAILY 07/27/22 07/27/22 Previous Rx's Medication Instructions Recorded Aspirin 81 mg PO DAILY #2 tab 07/27/22 Allergies Allergy/AdvReac Type Severity Reaction Status Date / Time lisinopril Allergy Unknown BODY Verified 07/27/22 17:21 ACHES, EXHAUSTION, PAIN amlodipine Allergy SEVERE LEG Verified 07/27/22 17:21 PAIN, "MESSES UP HIS THINKING" ciprofloxacin [From Cipro] AdvReac Unknown SLURRED Verified 07/27/22 17:21 SPEECH ezetimibe [From Zetia] AdvReac Unknown BODY ACHES Verified 07/27/22 17:21 ofloxacin [From Floxin] AdvReac Unknown SLURRED Verified 07/27/22 17:21 SPEECH hydrocodone [From [place]] AdvReac Stomach Verified 07/27/22 17:21 upset, constipation moxifloxacin HCl AdvReac TREMBLE , Verified 07/27/22 17:21 [From Avelox] LIGHTHEADED, WEAK fluoroquinolones Allergy Itching Uncoded 07/27/22 17:21 Review of Systems ROS Statement: Those systems with pertinent positive or pertinent negative responses have been documented in the HPI. ROS Other: All systems not noted in ROS Statement are negative. Past Medical History Past Medical History: CVA/TIA, Diabetes Mellitus, GERD/Reflux, Hypertension, Osteoarthritis (OA), Pneumonia Additional Past Medical History / Comment(s): MULTIPLE TIA'S (7) - RIGHT SIDED WEAKNESS RESOLVED.- SLIGHT MEMORY IMPAIRMENT., VARICOSE VEINS, KIDNEY STONES, LICHEN PLANUS ON HIS LEGS, GARETH MARTINEZ.,DIABETES RESOLVED WITH WT LOSS., NOW HAS EPISODES OF HYPOGLYCEMIA., PINCHED NERVE NECK WITH PAIN IN NECK & SHOULDERS.,RECEIVING INJECTIONS FOR NECK PAIN, RIGHT ARM GOES NUMB AND A COUPLE FINGERS ARE NUMB., TORN RIGHT ROTATOR CUFF., BPH WITH UROLIFT PROCEDURE., PT HAS 2 METAL STENTS FROM HIS GUM TO SINUS CAVITY., ORAL LEUKOPLAKIA SURGERY., HX OF COLON POLYPS. History of Any Multi-Drug Resistant Organisms: None Reported Past Surgical History: Cholecystectomy Additional Past Surgical History / Comment(s): kidney stones removed, UROLIFT., DENTAL PROCEDURE WITH METAL STENTS FROM GUMS TO SINUS CAVITY., ORAL LEUKOPLAKIA SURGERY, . Past Anesthesia/Blood Transfusion Reactions: No Reported Reaction Additional Past Anesthesia/Blood Transfusion Reaction / Comment(s): HX OF PASSING OUT WITH STARTING IV Past Psychological History: Anxiety Smoking Status: Former smoker Past Alcohol Use History: Occasional Past Drug Use History: None Reported - Past Family History Mother Family Medical History: No Reported History General Exam Limitations: no limitations Course Vital Signs 07/27/22 07/27/22 07/27/22 15:12 16:14 17:56 Temperature 98 F Pulse Rate 68 67 65 Respiratory 16 18 18 Rate Blood Pressure 195/86 198/114 164/110 O2 Sat by Pulse 98 98 97 Oximetry Medical Decision Making - Medical Decision Making 77-year-old male presenting with chest pain and hypertension along with intermittent nausea and abdominal pain a few days ago high risk for ACS and aortic dissection. Low probability for PE and aortic dissection given the duration of symptoms of 3 days without increase in severity or hypoxemia. Will give Nitropaste for hypertensive control, reports pain currently stable will defer analgesics at this time. Reports has been taking aspirin daily since chest pain started him took 2 tabs 81 mg aspirin this morning. Will start workup with CBC, CMP, troponin, magnesium, coags, d-dimer, EKG, chest x-ray and once renal function resulted CTA of the chest and abdomen. CBC unremarkable, CMP revealed a glucose of 106 otherwise normal, troponin negative, coags normal, d-dimer 0.30 (negative). EKG showed sinus rhythm, left axis deviation moderate intraventricular conduction delay and voltage criteria for LVH. Chest x-ray image interpreted by me showing no evidence of infiltrate or consolidation. CTA of the thorax and abdomen image interpreted by me showing intact aorta without evidence of dissection. Radiology report for chest x-ray and CTA reviewed as well. Blood pressure remains elevated after Nitropaste application. Pain still remains minimal without the need of analgesic. Will give dose of oral beta nic and supplement earlier oral aspirin to complete a dose of 324 mg. Overall workup ne gative at this time however in the setting of presentation and comorbid conditions recommended admission for observation stay along with cardiac evaluation. Will defer heparin drip to admitting team and cardiology consult. Spoke with Carmen on awake counselor for [facility] regarding patient's presentation and current results requesting admission for observation stay for continued monitoring of cardiac enzymes and blood pressure control along with recommended cardiac consult. She is accepting of admission and is agreeable to cardiac consult. Will place admission orders. Patient admitted in stable condition. Case discussed with Dr. Troncoso. - Lab Data Result diagrams: 07/27/22 15:46 07/27/22 15:46 Lab Results 07/27/22 07/27/22 07/27/22 Range/Units 15:46 15:46 15:46 WBC 9.4 (3.8-10.6) k/uL RBC 4.44 (4.30-5.90) m/uL Hgb 15.6 (13.0-17.5) gm/dL Hct 43.0 (39.0-53.0) % MCV 96.8 (80.0-100.0) fL MCH 35.2 H (25.0-35.0) pg MCHC 36.3 (31.0-37.0) g/dL RDW 12.5 (11.5-15.5) % Plt Count 253 (150-450) k/uL MPV 8.1 Neutrophils % 73 % Lymphocytes % 18 % Monocytes % 5 % Eosinophils % 2 % Basophils % 1 % Neutrophils # 6.8 (1.3-7.7) k/uL Lymphocytes # 1.7 (1.0-4.8) k/uL Monocytes # 0.5 (0-1.0) k/uL Eosinophils # 0.2 (0-0.7) k/uL Basophils # 0.1 (0-0.2) k/uL PT 10.5 (9.0-12.0) sec INR 1.0 (<1.2) APTT 25.0 (22.0-30.0) sec D-Dimer 0.20 (<0.60) mg/L FEU Sodium 137 (137-145) mmol/L Potassium 4.2 (3.5-5.1) mmol/L Chloride 102 (98-107) mmol/L Carbon Dioxide 24 (22-30) mmol/L Anion Gap 11 mmol/L BUN 19 (9-20) mg/dL Creatinine 1.02 (0.66-1.25) mg/dL Est GFR (CKD-EPI)AfAm 83 (>60 ml/min/1.73 sqM) Est GFR (CKD-EPI)NonAf 72 (>60 ml/min/1.73 sqM) Glucose 106 H (74-99) mg/dL Calcium 10.1 (8.4-10.2) mg/dL Magnesium 1.7 (1.6-2.3) mg/dL Total Bilirubin 0.7 (0.2-1.3) mg/dL AST 22 (17-59) U/L ALT 18 (4-49) U/L Alkaline Phosphatase 81 (38-126) U/L Troponin I (0.000-0.034) ng/mL Total Protein 7.5 (6.3-8.2) g/dL Albumin 4.8 (3.5-5.0) g/dL Amylase 65 (30-110) U/L Lipase 51 (23-300) U/L 07/27/22 Range/Units 15:46 WBC (3.8-10.6) k/uL RBC (4.30-5.90) m/uL Hgb (13.0-17.5) gm/dL Hct (39.0-53.0) % MCV (80.0-100.0) fL MCH (25.0-35.0) pg MCHC (31.0-37.0) g/dL RDW (11.5-15.5) % Plt Count (150-450) k/uL MPV Neutrophils % % Lymphocytes % % Monocytes % % Eosinophils % % Basophils % % Neutrophils # (1.3-7.7) k/uL Lymphocytes # (1.0-4.8) k/uL Monocytes # (0-1.0) k/uL Eosinophils # (0-0.7) k/uL Basophils # (0-0.2) k/uL PT (9.0-12.0) sec INR (<1.2) APTT (22.0-30.0) sec D-Dimer (<0.60) mg/L FEU Sodium (137-145) mmol/L Potassium (3.5-5.1) mmol/L Chloride (98-107) mmol/L Carbon Dioxide (22-30) mmol/L Anion Gap mmol/L BUN (9-20) mg/dL Creatinine (0.66-1.25) mg/dL Est GFR (CKD-EPI)AfAm (>60 ml/min/1.73 sqM) Est GFR (CKD-EPI)NonAf (>60 ml/min/1.73 sqM) Glucose (74-99) mg/dL Calcium (8.4-10.2) mg/dL Magnesium (1.6-2.3) mg/dL Total Bilirubin (0.2-1.3) mg/dL AST (17-59) U/L ALT (4-49) U/L Alkaline Phosphatase (38-126) U/L Troponin I <0.012 (0.000-0.034) ng/mL Total Protein (6.3-8.2) g/dL Albumin (3.5-5.0) g/dL Amylase (30-110) U/L Lipase (23-300) U/L - EKG Data EKG Comments: EKG completed at 1524 and typify me shows sinus rhythm, left axis deviation moderate intraventricular conduction delay and voltage criteria for LVH unchanged compared to 11/13/2021, ventricular rate 65 bpm, WV interval 160 ms, QRS duration 112 ms, QT/QTC 377/388 ms, PRT axes 31, -32, 19 - Radiology Data Radiology results: report reviewed, image reviewed Two-view chest x-ray impression by radiologist chronic changes without acute pulmonary process. Chronic parenchymal changes bilaterally without suspicious focal airspace opacity, pleural effusion or pneumothorax seen. CT angio thorax/abdomen aorta impression by radiologist no evidence of thorax aortic dissection. Mild to moderate atherosclerosis of the arterial vasculature. Moderate to severe coronary artery atherosclerosis. Pancreatic head process cyst area is seen dating back to at least 2017. Bilateral fat-containing inguinal hernias. Chronic diverticulosis. Mild emphysematous changes in the lungs. Disposition Clinical Impression: Chest pain Disposition: ADMITTED IP TO THIS HOSP Condition: Stable Is patient prescribed a controlled substance at d/c from ED?: No Time of Disposition: 17:47
--- NOTE | 2022-07-27 17:09 | CT ---
EXAMINATION TYPE: CT angio thor/abd pel aorta CT DLP: 1874.2 mGycm, Automated exposure control for dose reduction was used. DATE OF EXAM: 07/27/2022 4:39 PM COMPARISON: CT abdomen pelvis 05/19/2022, 07/01/2021 CT chest abdomen pelvis.. CLINICAL INDICATION:Male, 77 years old with history of chest pain with nausea, Chest pain with nausea . TECHNIQUE: Dissection protocol: Multiple axial CT images of the chest, abdomen, and pelvis were obtai sendy prior and to the administration of IV contrast. 3-D reformats and maximum intensity projection fo rmat were performed on a separate workstation. Contrast used:100ml mL of Isovue 300 without and with IV Contrast, Oral contrast used: None FINDINGS: ARTERIAL VASCULATURE: Aortic valve calcifications are present. Descending thoracic aorta is within no rmal limits for size. The major vessels of the aorta are patent. Visualized portions of the internal carotid arteries and brachiocephalic arteries are patent. The descending thoracic aorta is patent wit h scattered atherosclerosis and mural thrombus noted. The abdominal thoracic aorta infiltrates mild a therosclerosis throughout its course. The origins of the major vessels appear patent. There are one r ight renal artery and 2 left renal arteries. The common iliac arteries and external iliac arteries ar e patent with scattered atherosclerosis. PULMONARY ARTERIAL VASCULATURE: Suboptimally evaluated given contrast timing. No central PE definitel y visualized. VENOUS SYSTEM: Unremarkable. Lungs/pleura: Mild centrilobular and central lobular emphysema changes. Review Heart: Within normal limits. Moderate to severe coronary artery atherosclerosis is present. Mediastinum: No gross evidence of adenopathy. Lower Neck: No significant findings. Abdomen: Liver: Unremarkable. Gallbladder and Bile ducts: Gallbladder surgically absent. Pancreas: Unremarkable. Spleen: Masslike density in the pancreatic head/uncinate process measuring 18 x 17 mm which remains h ypodense on arterial phase imaging. Adrenal glands: Unremarkable. Kidneys and Ureters: Unremarkable. No hydronephrosis. Stomach and Bowel: Colonic diverticula present. No evidence of obstruction. Peritoneum: No evidence of pneumoperitoneum, free fluid, or adenopathy. There is a density in the le ft low mesentery measuring up to 14 mm which is more faint on prior on 03/18/2022 measuring up to 18 m m on prior. Findings suspected to represent infarcted epiploic appendage. (Series 201 image 91) Bladder: Unremarkable. Reproductive: Surgical clips are seen near the lower inner bladder wall/prostate gland. Abdominal wall/soft tissues: Fat-containing inguinal hernias bilaterally. Musculoskeletal: The osseous structures appear intact. IMPRESSION: 1. No evidence for thoracic aortic dissection. 2. Mild to moderate atherosclerosis of the arterial vasculature. 3. Moderate to severe coronary artery atherosclerosis. 4. Pancreatic head/uncinate process cystic area seen dating back to at least 2017. 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 Consider MRI abdomen MRCP as clinically janeth anted for follow-up. 5. Bilateral fat-containing inguinal hernias. 6. Colonic diverticulosis.\ 7. Mild emphysema changes in the lungs.
[2022-07-27] MEDS ORDERED: NALOXONE 0.4 MG/ML 1 ML VIAL IV PRN (17:52)
[2022-07-27] MEDS ORDERED: METOPROLOL TARTRATE 25 MG TAB PO STA (17:52)
[2022-07-27 22:18] LABS: Glucose,Whole Blood 109 mg/dL (70-110)
[2022-07-27] MEDS: HEPARIN SODIUM,PORCINE/PF 5,000 UNIT/0.5 ML SYRINGE SQ SCH (23:25)
[2022-07-28] MEDS: ACETAMINOPHEN TAB 325 MG TAB PO PRN ×2 (00:18→07:43)
[2022-07-28 02:27] VITALS: RESP 16
[2022-07-28 06:21] LABS: INR 1.1 (<1.2); Prothrombin Time 11.5 sec (9.0-12.0)
[2022-07-28 06:24] LABS: Basophils # (A) 0.1 k/uL (0-0.2); Basophils % (A) 1 %; Eosinophils # (A) 0.2 k/uL (0-0.7); Eosinophils % (A) 2 %; HCT 41.2 % (39.0-53.0); HGB 14.6 gm/dL (13.0-17.5); Lymphocytes # (A) 1.9 k/uL (1.0-4.8); Lymphocytes % (A) 24 %; MCH 35.2 pg (25.0-35.0); MCHC 35.5 g/dL (31.0-37.0); MCV 99.1 fL (80.0-100.0); Mean Platelet Volume 8.2; Monocytes # (A) 0.5 k/uL (0-1.0); Monocytes % (A) 6 %; Neutrophils # (A) 5.1 k/uL (1.3-7.7); Neutrophils % (A) 65 %; Platelet Count 238 k/uL (150-450); RBC 4.16 m/uL (4.30-5.90); RDW 12.7 % (11.5-15.5); WBC 7.8 k/uL (3.8-10.6)
[2022-07-28 06:32] LABS: Potassium 4.1 mmol/L (3.5-5.1)
[2022-07-28 06:33] LABS: African American GFR (CKD) 68 (>60 ml/min/1.73 sqM); Anion Gap 5 mmol/L; Blood Urea Nitrogen 23 mg/dL (9-20); Calcium 9.4 mg/dL (8.4-10.2); Carbon Dioxide 29 mmol/L (22-30); Chloride 102 mmol/L (98-107); Glucose 134 mg/dL (74-99); LDH 333 U/L (313-618); Non-African American GFR(CKD) 58 (>60 ml/min/1.73 sqM); Sodium 136 mmol/L (137-145)
[2022-07-28 06:58] VITALS: BP 128/65; PULSE 56; TEMP 97.8
[2022-07-28 07:27] LABS: Glucose,Whole Blood 136 mg/dL (70-110)
[2022-07-28] MEDS ORDERED: FAMOTIDINE 20 MG TAB PO SCH (09:00)
[2022-07-28] MEDS ORDERED: hydrALAZINE HCL 25 MG TAB PO SCH (09:00)
[2022-07-28] MEDS ORDERED: CHOLECALCIFEROL 25 MCG (1000 IU) TABLET PO SCH (09:00)
[2022-07-28] MEDS ORDERED: LOSARTAN 50 MG TAB PO SCH (09:00)
[2022-07-28] MEDS ORDERED: hydroCHLOROthiazide 12.5 MG CAP PO SCH (09:15)
[2022-07-28] MEDS: HEPARIN SODIUM,PORCINE/PF 5,000 UNIT/0.5 ML SYRINGE SQ SCH (09:30)
--- NOTE | 2022-07-28 09:39 | P.CRDCN ---
History of Present Illness History of present illness: HISTORY OF PRESENTING ILLNESS This is a pleasant 77-year-old male past medical history significant for minimal nonobstructive coronary artery disease, type 2 diabetes, hypertension, dyslipide micah, multiple TIAs chronic neck pain, BPH, former tobacco use. He follows in the office with Dr. Gregory. We have been asked to see in consultation for chest pain. Patient presents to the emergency department with complaints of elevated BP for the past week he has noticed elevated BP. Past 3 days elevated SBP 190s/>100s. His Losartan was increased to 100mg daily. He also was taking Hydrochlorothiazide 25mg PRN as well. He states he could not get his BP down and came to the ER for further evaluation. He does endorse some generalized fatigue over the past couple months, no other complaints. He had left sided Chest pain that began one week ago, it is tender to palpation. It only occurs when he to uches that area of his chest. It is Non-radiating, non-exertional. Denies any associated symptoms. Chest pain is reproducible on exam. He has no associated shortness of breath, nausea, vomiting, diaphoresis, lightheadedness or dizziness. He denies any tobacco use. No history of CT. DIAGNOSTICS * EKG reveals sinus rhythm, heart rate 65, T wave inversion in lead III, early repolarization in lateral leads, no acute ischemia * Recent Cardiolite stress test 03/2022 revealed no evidence of any stress- induced ischemia, excellent exercise tolerance, normal left ventricular systolic function * Last Cardiac Catheterization 2013 revealed no significant coronary artery disease, minimal CAD * Recent echocardiogram in the office 03/2022 revealed a normal ejection fraction, mild to moderate mitral regurgitation * Telemetry tracings indicate sinus bradycardia, heart rate in the 50s * Chest xray chronic parenchymal changes bilaterally, no acute pulmonary process, no acute heart failure * Thoracic aorta CT revealed no evidence of thoracic aortic dissection, mild to moderate atherosclerosis with arterial vasculature, etc. severe coronary artery atherosclerosis, colonic diverticulosis, mild emphysema changes in the lungs. * Laboratory reviewed, troponin negative 3, sodium 136, potassium 4.1, BUN 23, serum creatinine 1.2, d-dimer negative, WBC 7.8, hemoglobin 14.6, platelets 238 * Current home medications include metformin, hydrochlorothiazide 25 mg daily, meclizine, losartan 100 mg daily, aspirin 81 mg daily REVIEW OF SYSTEMS At the time of my exam: CONSTITUTIONAL: Denies fever or chills. CARDIOVASCULAR: Denies chest pain, shortness of breath, orthopnea, PND or palpitations. RESPIRATORY: Denies cough. GASTROINTESTINAL: Denies abdominal pain, diarrhea, constipation, nausea or vomiting. MUSCULOSKELETAL: +chest pain with palpation to the left side in one area NEUROLOGIC: Denies numbness, tingling, headache or weakness. ENDOCRINE: Denies fatigue, weight change, polydipsia or polyurina. GENITOURINARY: Denies burning, hematuria or urgency with micturation. HEMATOLOGIC: Denies history of anemia or bleeding. PHYSICAL EXAMINATION Blood pressure 128/65, heart rate 56, afebrile, saturations 98% on room air CONSTITUTIONAL: No apparent distress. HEENT: Head is normocephalic. Pupils are equal, round. Sclerae anicteric. Mucous membranes of the mouth are moist. No JVD. No carotid bruit. CHEST EXAMINATION: Lungs are clear to auscultation. No chest wall tenderness is noted on palpation or with deep breathing. HEART EXAMINATION: Regular rate and rhythm. S1, S2 heard. Systolic murmur at apex. No gallops or rub. ABDOMEN: Soft, nontender. Positive bowel sounds. EXTREMITIES: 2+ peripheral pulses, no lower extremity edema and no calf tenderness. SKIN: Warm, dry NEUROLOGIC EXAMINATION: Patient is awake, alert and oriented x3. ASSESSMENT Chest pain, appears musculoskeletal and noncardiac on exam Hypertensive urgency, improved History of minimal coronary artery disease by cardiac catheterization in 2013 Type 2 diabetes Hypertension Dyslipidemia History of multiple TIAs History of BPH PLAN An acute coronary event has been ruled out with no EKG evidence of ischemia and negative cardiac enzymes. Patient with recent negative cardiolyte stress test in the office. No need to repeat echo with recent one in March 2022. Recommend continuing losartan 100mg daily Start hydrochlorothiazide 12.5mg daily and hydralazine 25mg BID Increase activity If patient's BP stable later today, ok to discharge from a cardiology perspective and follow up with Dr. Gregory in 1-2 weeks. Thank you kindly for this consultation. Nurse practitioner note has been reviewed by physician. Signing provider agrees with the documented findings, assessment, and plan of care. Past Medical History Past Medical History: CVA/TIA, Diabetes Mellitus, GERD/Reflux, Hypertension, Osteoarthritis (OA), Pneumonia Additional Past Medical History / Comment(s): MULTIPLE TIA'S (7) - RIGHT SIDED WEAKNESS RESOLVED.- SLIGHT MEMORY IMPAIRMENT., VARICOSE VEINS, KIDNEY STONES, LICHEN PLANUS ON HIS LEGS, GARETH MARTINEZ.,DIABETES RESOLVED WITH WT LOSS., NOW HAS EPISODES OF HYPOGLYCEMIA., PINCHED NERVE NECK WITH PAIN IN NECK & SHOULDERS.,RECEIVING INJECTIONS FOR NECK PAIN, RIGHT ARM GOES NUMB AND A COUPLE FINGERS ARE NUMB., TORN RIGHT ROTATOR CUFF., BPH WITH UROLIFT PROCEDURE., PT HAS 2 METAL STENTS FROM HIS GUM TO SINUS CAVITY., ORAL LEUKOPLAKIA SURGERY., HX OF COLON POLYPS. History of Any Multi-Drug Resistant Organisms: None Reported Past Surgical History: Cholecystectomy Additional Past Surgical History / Comment(s): kidney stones removed, UROLIFT., DENTAL PROCEDURE WITH METAL STENTS FROM GUMS TO SINUS CAVITY., ORAL LEUKOPLAKIA SURGERY, . Past Anesthesia/Blood Transfusion Reactions: No Reported Reaction Additional Past Anesthesia/Blood Transfusion Reaction / Comment(s): HX OF PASSING OUT WITH STARTING IV Past Psychological History: Anxiety Additional Psychological History / Comment(s): Pt resides with his spouse. Smoking Status: Former smoker Past Alcohol Use History: Occasional Additional Past Alcohol Use History / Comment(s): Pt started smoking approximately 1961 and quit approximately 1998 Past Drug Use History: None Reported - Past Family History Mother Family Medical History: No Reported History Medications and Allergies Home Medications Medication Instructions Recorded Confirmed Type Losartan Potassium [Cozaar] 100 mg PO DAILY 06/27/18 07/27/22 History Aloe Vera 400mg 1 tab PO BID 07/27/22 07/27/22 History Aspirin 81 mg PO DAILY #2 tab 07/27/22 Rx Celecoxib [CeleBREX] 200 mg PO DAILY PRN 07/27/22 07/27/22 History Cholecalciferol [Vitamin D3 (25 25 mcg PO DAILY 07/27/22 07/27/22 History Mcg = 1000 Iu)] Famotidine [Pepcid] 20 mg PO BID 07/27/22 07/27/22 History LORazepam [Ativan] 1 mg PO DAILY PRN 07/27/22 07/27/22 History Meclizine [Antivert] 25 mg PO DAILY PRN 07/27/22 07/27/22 History Metoclopramide [Reglan] 10 mg PO BID PRN 07/27/22 07/27/22 History Natural Astaxanthin 6mg 1 cap PO DAILY 07/27/22 07/27/22 History [place] Xl 300mg 1 cap PO BID 07/27/22 07/27/22 History Probiotic & Prebiotic Blend 1 cap PO DAILY 07/27/22 07/27/22 History Turmeric Root Extract [Turmeric 500 mg PO DAILY 07/27/22 07/27/22 History Curcumin] hydroCHLOROthiazide [Hydrodiuril] 25 mg PO DAILY PRN 07/27/22 07/27/22 History metFORMIN HCL ER [Glucophage XR] 500 mg PO DAILY 07/27/22 07/27/22 History Allergies Allergy/AdvReac Type Severity Reaction Status Date / Time lisinopril Allergy Unknown BODY Verified 07/27/22 17:21 ACHES, EXHAUSTION, PAIN amlodipine Allergy SEVERE LEG Verified 07/27/22 17:21 PAIN, "MESSES UP HIS THINKING" ciprofloxacin [From Cipro] AdvReac Unknown SLURRED Verified 07/27/22 17:21 SPEECH ezetimibe [From Zetia] AdvReac Unknown BODY ACHES Verified 07/27/22 17:21 ofloxacin [From Floxin] AdvReac Unknown SLURRED Verified 07/27/22 17:21 SPEECH hydrocodone [From [facility]] AdvReac Stomach Verified 07/27/22 17:21 upset, constipation moxifloxacin HCl AdvReac TREMBLE , Verified 07/27/22 17:21 [From Avelox] LIGHTHEADED, WEAK fluoroquinolones Allergy Itching Uncoded 07/27/22 17:21 Physical Exam Vitals: Vital Signs Temp Pulse Pulse Resp BP BP BP 07/28/22 06:57 97.8 F 56 L 16 128/65 07/28/22 01:56 97.6 F 57 L 16 98/59 07/27/22 21:43 97.4 F L 53 L 18 169/83 07/27/22 21:00 52 L 18 129/72 07/27/22 20:00 53 L 18 07/27/22 19:35 55 L 18 134/83 07/27/22 17:56 65 18 164/110 07/27/22 16:14 67 18 198/114 07/27/22 15:12 98 F 68 16 195/86 Pulse Ox 07/28/22 06:57 98 07/28/22 01:56 94 L 07/27/22 21:43 98 07/27/22 21:00 96 07/27/22 20:00 07/27/22 19:35 95 07/27/22 17:56 97 07/27/22 16:14 98 07/27/22 15:12 98 Intake and Output 07/27/22 07/28/22 07/28/22 22:59 06:59 14:59 Intake Total 500 500 Balance 500 500 Intake: Oral 500 500 Other: Voiding Method Toilet Weight 86.183 kg Results 07/28/22 05:52 07/28/22 05:52 Cardiac Enzymes 07/27/22 07/27/22 07/27/22 Range/Units 15:46 15:46 18:06 AST 22 (17-59) U/L Lactate Dehydrogenase (313-618) U/L Troponin I <0.012 <0.012 (0.000-0.034) ng/mL 07/27/22 07/28/22 Range/Units 20:52 05:52 AST (17-59) U/L Lactate Dehydrogenase 333 (313-618) U/L Troponin I <0.012 (0.000-0.034) ng/mL Coagulation 07/27/22 07/28/22 Range/Units 15:46 05:52 PT 10.5 11.5 (9.0-12.0) sec APTT 25.0 (22.0-30.0) sec CBC 07/27/22 07/28/22 Range/Units 15:46 05:52 WBC 9.4 7.8 (3.8-10.6) k/uL RBC 4.44 4.16 L (4.30-5.90) m/uL Hgb 15.6 14.6 (13.0-17.5) gm/dL Hct 43.0 41.2 (39.0-53.0) % Plt Count 253 238 (150-450) k/uL Comprehensive Metabolic Panel 07/27/22 07/28/22 Range/Units 15:46 05:52 Sodium 137 136 L (137-145) mmol/L Potassium 4.2 4.1 (3.5-5.1) mmol/L Chloride 102 102 (98-107) mmol/L Carbon Dioxide 24 29 (22-30) mmol/L BUN 19 23 H (9-20) mg/dL Creatinine 1.02 1.21 (0.66-1.25) mg/dL Glucose 106 H 134 H (74-99) mg/dL Calcium 10.1 9.4 (8.4-10.2) mg/dL AST 22 (17-59) U/L ALT 18 (4-49) U/L Alkaline Phosphatase 81 (38-126) U/L Total Protein 7.5 (6.3-8.2) g/dL Albumin 4.8 (3.5-5.0) g/dL Current Medications Generic Name Dose Route Start Last Admin Trade Name Freq PRN Reason Stop Dose Admin Acetaminophen 650 mg 07/27/22 17:52 07/28/22 00:18 Acetaminophen Tab 325 Mg Tab PO 650 mg Q6HR PRN Administration Mild Pain or Fever > 100.5 Cholecalciferol 25 mcg 07/28/22 09:00 Cholecalciferol 25 Mcg (1000 Iu) Tablet PO DAILY [facility] Famotidine 20 mg 07/28/22 09:00 Famotidine 20 Mg Tab PO BID [facility] Heparin Sodium (Porcine) 5,000 unit 07/27/22 22:15 07/27/22 23:25 Heparin Sodium,Porcine/Pf 5,000 Unit/0.5 Ml Syringe SQ 5,000 unit Q12HR [facility]AR Administration Losartan Potassium 100 mg 07/28/22 09:00 Losartan 50 Mg Tab PO DAILY [facility]AR Naloxone HCl 0.2 mg 07/27/22 17:52 Naloxone 0.4 Mg/Ml 1 Ml Vial IV Q2M PRN Opioid Reversal Intake and Output 07/27/22 07/28/22 07/28/22 22:59 06:59 14:59 Intake Total 500 500 Balance 500 500 Intake: Oral 500 500 Other: Voiding Method Toilet Weight 86.183 kg 07/28/22 05:52 07/28/22 05:52
[2022-07-28] MEDS ORDERED: hydroCHLOROthiazide 25 MG TAB PO SCH (12:00)
--- NOTE | 2022-07-28 13:36 | P.HPIM ---
History of Present Illness H&P Date: 07/28/22 This is a 77-year-old male who presented to the emergency department with chest pain and his blood pressure that has been uncontrolled. Patient reports this is been ongoing for the last 3 days and not letting up. Patient follows Dr. Gregory outpatient and was recently there with a normal stress test that was done outpatient. Patient on exam today reports his chest pain is most likely musculoskeletal. Patient was taking losartan along with hydrochlorothiazide in the outpatient setting and cardiology was consulted and patient was placed on telemetry monitoring. Serial troponins were negative. Kidney function slightly elevated with a creatinine at 1.21 and BUN is 23. Chest x-ray shows no acute pulmonary process. CT abdomen chest was also done as patient had some chest pain with nausea showing no evidence of a thoracic aortic dissection with mild to moderate atherosclerosis and moderate to severe coronary artery atherosclerosis with bilateral fat-containing inguinal hernias and colonic diverticulosis with mild emphysema. 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 Documentation will be sent to his primary care provider Dr. Marshall Robertson. Agent denies any further nausea or chest pain and currently getting dressed reporting he would like to go home. Patient has been seen and evaluated by cardiology recommending outpatient follow-up. Review Of Systems: Constitutional: No fever, no chills, no night sweats. No weight change. No weakness, fatigue or lethargy. No daytime sleepiness. EENT: No headache. No blurred vision or double vision, no loss of vision. No loss of Hearing, no ringing in the ears, no dizziness. No nasal drainage or congestion. No epistaxis. No sore throat. Lungs: No shortness of breath, cough, no sputum production. No wheezing. Cardiovascular: Reports of chest pain that is now resolved, no lower extremity edema. No palpitations. No paroxysmal nocturnal dyspnea. No orthopnea. No lightheadedness or dizziness. No syncopal episodes. Abdominal: No abdominal pain. No further nausea, no vomiting. No diarrhea. No constipation. No bloody or tarry stools.. No loss of appetite. Genitourinary: No dysuria, increased frequency, urgency. No urinary retention. Musculoskeletal: No myalgias. No muscle weakness, no gait dysfunction, no frequent falls. No back pain. No neck pain. Integumentary: No wounds, no lesions. No rash or pruritus. No unusual bruising . No change in hair or nails. Neurologic: No aphasia. No facial droop. No change in mentation. No head injury. No headache. No paralysis. No paresthesia. Psychiatric: No depression. No anxiety. No mood swings. Endocrine: No abnormal blood sugars. No weight change. No excessive sweating or thirst. No cold intolerance. PHYSICAL EXAMINATION: GENERAL: The patient is alert and oriented x4, Well developed, well nourished. HEENT: Pupils are round and equally reacting to light. EOMI. no scleral icterus. No conjunctival pallor. Normocephalic, atraumatic. No pharyngeal erythema. No thyromegaly. CARDIOVASCULAR: S1 and S2 muffled PULMONARY: diminished breath sounds bilaterally with no wheezing or rhonchi noted. ABDOMEN: soft. Nontender on exam. non-distended, normoactive bowel sounds. No palpable organomegaly. MUSCULOSKELETAL: No joint swelling or deformity. EXTREMITIES: No cyanosis, clubbing, or pedal edema. NEUROLOGICAL: Gross neurological examination did not reveal any focal deficits. SKIN: No rashes. Assessment: Chest pain, ruled out ACS most likely musculoskeletal Hypertensive urgency, present on admission, improved Diabetes mellitus, type II Gastroesophageal reflux disease Hypertension Hyperlipidemia History of multiple TIAs GI prophylaxis DVT prophylaxis Full code Plan: Recommend to continue with current medications and management with cardiology on consultation. Patient was continued on telemetry monitoring and serial troponins have been negative. Patient was seen and evaluated by cardiology and most recently had a stress test which was negative with Dr. Gregory in the outpatient setting 2 months ago with no need to repeat the echo. Patient report s to feeling better and will follow-up with Dr. Robertson along with her etiology outpatient. Adjustments to medications have been made patient blood pressure better controlled. Patient has been cleared by cardiology for discharge today and patient reports he feels well and would like to go home. Patient will be discharged later today if blood pressure remains controlled. Prescription sent to the pharmacy along with an outpatient prescription for labs his kidney functions were slightly elevated at 1.2. Recommend holding hydrochlorothiazide until repeat labs and discussing with cardiology along with primary care provider about resuming. The impression and plan of care has been dictated by Priscila Atwood, nurse practitioner as directed. Dr. Earl MD I have performed a history and examination and MDM of this patient, discussed the same with the dictator, and agree with the dictator's assessment and plan as written ,documented as a scribe. Based on total visit time, I have performed more than 50% of the visit. Any additional findings or plans will be noted. Past Medical History Past Medical History: CVA/TIA, Diabetes Mellitus, GERD/Reflux, Hypertension, Osteoarthritis (OA), Pneumonia Additional Past Medical History / Comment(s): MULTIPLE TIA'S (7) - RIGHT SIDED WEAKNESS RESOLVED.- SLIGHT MEMORY IMPAIRMENT., VARICOSE VEINS, KIDNEY STONES, LICHEN PLANUS ON HIS LEGS, GARETH MARTINEZ.,DIABETES RESOLVED WITH WT LOSS., NOW HAS EPISODES OF HYPOGLYCEMIA., PINCHED NERVE NECK WITH PAIN IN NECK & SHOULDERS.,RECEIVING INJECTIONS FOR NECK PAIN, RIGHT ARM GOES NUMB AND A COUPLE FINGERS ARE NUMB., TORN RIGHT ROTATOR CUFF., BPH WITH UROLIFT PROCEDURE., PT HAS 2 METAL STENTS FROM HIS GUM TO SINUS CAVITY., ORAL LEUKOPLAKIA SURGERY., HX OF COLON POLYPS. History of Any Multi-Drug Resistant Organisms: None Reported Past Surgical History: Cholecystectomy Additional Past Surgical History / Comment(s): kidney stones removed, UROLIFT., DENTAL PROCEDURE WITH METAL STENTS FROM GUMS TO SINUS CAVITY., ORAL LEUKOPLAKIA SURGERY, . Past Anesthesia/Blood Transfusion Reactions: No Reported Reaction Additional Past Anesthesia/Blood Transfusion Reaction / Comment(s): HX OF PASSING OUT WITH STARTING IV Past Psychological History: Anxiety Additional Psychological History / Comment(s): Pt resides with his spouse. Smoking Status: Former smoker Past Alcohol Use History: Occasional Additional Past Alcohol Use History / Comment(s): Pt started smoking approximately 1961 and quit approximately 1998 Past Drug Use History: None Reported - Past Family History Mother Family Medical History: No Reported History Medications and Allergies Home Medications Medication Instructions Recorded Confirmed Type Losartan Potassium [Cozaar] 100 mg PO DAILY 06/27/18 07/27/22 History Aloe Vera 400mg 1 tab PO BID 07/27/22 07/27/22 History Aspirin 81 mg PO DAILY #2 tab 07/27/22 Rx Celecoxib [CeleBREX] 200 mg PO DAILY PRN 07/27/22 07/27/22 History Cholecalciferol [Vitamin D3 (25 25 mcg PO DAILY 07/27/22 07/27/22 History Mcg = 1000 Iu)] Famotidine [Pepcid] 20 mg PO BID 07/27/22 07/27/22 History LORazepam [Ativan] 1 mg PO DAILY PRN 07/27/22 07/27/22 History Meclizine [Antivert] 25 mg PO DAILY PRN 07/27/22 07/27/22 History Metoclopramide [Reglan] 10 mg PO BID PRN 07/27/22 07/27/22 History Natural Astaxanthin 6mg 1 cap PO DAILY 07/27/22 07/27/22 History [place] Xl 300mg 1 cap PO BID 07/27/22 07/27/22 History Probiotic & Prebiotic Blend 1 cap PO DAILY 07/27/22 07/27/22 History Turmeric Root Extract [Turmeric 500 mg PO DAILY 07/27/22 07/27/22 History Curcumin] metFORMIN HCL ER [Glucophage XR] 500 mg PO DAILY 07/27/22 07/27/22 History Acetaminophen Tab [Tylenol] 650 mg PO Q6HR PRN tab 07/28/22 Rx hydrALAZINE HCL [Apresoline] 25 mg PO BID 30 Days #60 tab 07/28/22 Rx Allergies Allergy/AdvReac Type Severity Reaction Status Date / Time lisinopril Allergy Unknown BODY Verified 07/27/22 17:21 ACHES, EXHAUSTION, PAIN amlodipine Allergy SEVERE LEG Verified 07/27/22 17:21 PAIN, "MESSES UP HIS THINKING" ciprofloxacin [From Cipro] AdvReac Unknown SLURRED Verified 07/27/22 17:21 SPEECH ezetimibe [From Zetia] AdvReac Unknown BODY ACHES Verified 07/27/22 17:21 ofloxacin [From Floxin] AdvReac Unknown SLURRED Verified 07/27/22 17:21 SPEECH hydrocodone [From [place]] AdvReac Stomach Verified 07/27/22 17:21 upset, constipation moxifloxacin HCl AdvReac TREMBLE , Verified 07/27/22 17:21 [From Avelox] LIGHTHEADED, WEAK fluoroquinolones Allergy Itching Uncoded 07/27/22 17:21 Physical Exam Vitals: Vital Signs Temp Pulse Pulse Resp BP BP BP 07/28/22 08:22 07/28/22 06:57 97.8 F 56 L 16 128/65 07/28/22 01:56 97.6 F 57 L 16 98/59 07/27/22 21:43 97.4 F L 53 L 18 169/83 07/27/22 21:00 52 L 18 129/72 07/27/22 20:00 53 L 18 07/27/22 19:35 55 L 18 134/83 07/27/22 17:56 65 18 164/110 07/27/22 16:14 67 18 198/114 07/27/22 15:12 98 F 68 16 195/86 Pulse Ox 07/28/22 08:22 97 07/28/22 06:57 98 07/28/22 01:56 94 L 07/27/22 21:43 98 07/27/22 21:00 96 07/27/22 20:00 07/27/22 19:35 95 07/27/22 17:56 97 07/27/22 16:14 98 07/27/22 15:12 98 Intake and Output 07/27/22 07/28/22 07/28/22 22:59 06:59 14:59 Intake Total 500 500 Balance 500 500 Intake: Oral 500 500 Other: Voiding Method Toilet Weight 86.183 kg Results CBC & Chem 7: 07/28/22 05:52 07/28/22 05:52 Labs: Abnormal Lab Results - Last 24 Hours (Table) 07/27/22 07/27/22 07/28/22 Range/Units 15:46 15:46 05:52 RBC 4.16 L (4.30-5.90) m/uL MCH 35.2 H 35.2 H (25.0-35.0) pg Sodium (137-145) mmol/L BUN (9-20) mg/dL Glucose 106 H (74-99) mg/dL POC Glucose (mg/dL) (70-110) mg/dL 07/28/22 07/28/22 Range/Units 05:52 07:25 RBC (4.30-5.90) m/uL MCH (25.0-35.0) pg Sodium 136 L (137-145) mmol/L BUN 23 H (9-20) mg/dL Glucose 134 H (74-99) mg/dL POC Glucose (mg/dL) 136 H (70-110) mg/dL Assessment and Plan Time with Patient: Greater than 30
--- NOTE | 2022-07-28 19:13 | P.DS ---
Providers Date of admission: 07/27/22 17:42 Expected date of discharge: 07/28/22 Attending physician: Darshan Puente Consults: 07/27/22 17:52 Consult Physician Routine Consulting Provider: Pk Gregory Consult Reason/Comments: chest pain/ htn Do you want consulting provider notified?: Yes Primary care physician: Marshall Robertson Hospital Course: Final diagnosis Chest pain, ruled out ACS most likely musculoskeletal Hypertensive urgency, present on admission, improved Diabetes mellitus, type II Gastroesophageal reflux disease Hypertension Hyperlipidemia History of multiple TIAs GI prophylaxis DVT prophylaxis Full code Discharge disposition Patient is being discharged in a stable condition with guarded prognosis to home. Patient will follow-up with Dr. Robertson in the outpatient setting upon discharge. Patient is to also follow up with cardiology Dr. Gregory as well. Total time taken is greater than 35 minutes. Hospital course This is a 77-year-old male who was recently admitted with hypertensive urgency as well as chest pain. Patient was evaluated by cardiology and cleared for outpatient follow up with his production scheduler. Patient had adjustments to his blood pressure medications and was started on low dose HCTZ although kidney functions are slightly elevated and recommend holding for the next few days and repeat labs with outpatient follow up. Patient blood pressure is improved and chest pain is likely musculoskeletal. Patient is feeling improved and would like to go home. Currently no reports of chest pain, shortness of breath, or palpitations. Patient is afebrile. No reports of nausea or vomiting and patient is tolerating diet. Patient will be discharged home today. Physical exam: Gen: This is a 77 year old male who is awake, alert and oriented x3. Well developed, well nourished. HEENT: Head is atraumatic, normocephalic. Pupils equal, round. Sclerae is anicteric. NECK: Supple. No JVD. No lymphadenopathy. No thyromegaly. LUNGS: Clear to auscultation. No wheezes or rhonchi. No intercostal retractions. HEART: Regular rate and rhythm. No murmur. ABDOMEN: Soft. Bowel sounds are present. No masses. No tenderness. EXTREMITIES: No pedal edema. No calf tenderness. NEUROLOGICAL: Patient is awake, alert and oriented x3. Cranial nerves 2 through 12 are grossly intact. Please refer to medication reconciliation sheet for a list of medications. The impression and plan of care has been dictated by Priscila Atwood, Nurse Practitioner as directed. MD Ronni I have performed a history and examination and MDM of this patient, discussed the same with the dictator, and agree with the dictator's assessment and plan as written ,documented as a scribe. Based on total visit time, I have performed more than 50% of the visit. Patient Condition at Discharge: Stable Plan - Discharge Summary Discharge Rx Participant: No New Discharge Prescriptions: New Aspirin 81 mg PO DAILY #2 tab hydrALAZINE HCL [Apresoline] 25 mg PO BID 30 Days #60 tab Acetaminophen Tab [Tylenol] 650 mg PO Q6HR PRN tab PRN Reason: Mild Pain Or Fever > 100.5 Continue Losartan Potassium [Cozaar] 100 mg PO DAILY Famotidine [Pepcid] 20 mg PO BID metFORMIN HCL ER [Glucophage XR] 500 mg PO DAILY Metoclopramide [Reglan] 10 mg PO BID PRN PRN Reason: Nausea Meclizine [Antivert] 25 mg PO DAILY PRN PRN Reason: Vertigo Probiotic & Prebiotic Blend 1 cap PO DAILY LORazepam [Ativan] 1 mg PO DAILY PRN PRN Reason: Anxiety Aloe Vera 400mg 1 tab PO BID Turmeric Root Extract [Turmeric Curcumin] 500 mg PO DAILY Celecoxib [CeleBREX] 200 mg PO DAILY PRN PRN Reason: Pain [place] Xl 300mg 1 cap PO BID Natural Astaxanthin 6mg 1 cap PO DAILY Cholecalciferol [Vitamin D3 (25 Mcg = 1000 Iu)] 25 mcg PO DAILY Discontinued hydroCHLOROthiazide [Hydrodiuril] 25 mg PO DAILY PRN PRN Reason: high bp Discharge Medication List Losartan Potassium [Cozaar] 100 mg PO DAILY 06/27/18 [History] Aloe Vera 400mg 1 tab PO BID 07/27/22 [History] Aspirin 81 mg PO DAILY #2 tab 07/27/22 [Rx] Celecoxib [CeleBREX] 200 mg PO DAILY PRN 07/27/22 [History] Cholecalciferol [Vitamin D3 (25 Mcg = 1000 Iu)] 25 mcg PO DAILY 07/27/22 [Histor y] Famotidine [Pepcid] 20 mg PO BID 07/27/22 [History] LORazepam [Ativan] 1 mg PO DAILY PRN 07/27/22 [History] Meclizine [Antivert] 25 mg PO DAILY PRN 07/27/22 [History] Metoclopramide [Reglan] 10 mg PO BID PRN 07/27/22 [History] Natural Astaxanthin 6mg 1 cap PO DAILY 07/27/22 [History] [place] Xl 300mg 1 cap PO BID 07/27/22 [History] Probiotic & Prebiotic Blend 1 cap PO DAILY 07/27/22 [History] Turmeric Root Extract [Turmeric Curcumin] 500 mg PO DAILY 07/27/22 [History] metFORMIN HCL ER [Glucophage XR] 500 mg PO DAILY 07/27/22 [History] Acetaminophen Tab [Tylenol] 650 mg PO Q6HR PRN tab 07/28/22 [Rx] hydrALAZINE HCL [Apresoline] 25 mg PO BID 30 Days #60 tab 07/28/22 [Rx] Follow up Appointment(s)/Referral(s): Marshall Robertson MD [Primary Care Provider] - 3 Days Pk Gregory MD [STAFF PHYSICIAN] - 08/03/22 2:45 pm Ambulatory/Diagnostic Orders: Basic Metabolic Panel [LAB.AMB] Time Frame: 3 Days, Location: None Selected Patient Instructions/Handouts: Chest Pain (DC) Activity/Diet/Wound Care/Special Instructions: Activity Limited until follow-up Follow-up with Dr. Robertson outpatient Follow-up with Dr. Gregory cardiology outpatient Discharge Disposition: HOME SELF-CARE
== END 2022-07-28 12:01 | disposition home or self-care (01) ==
LOC: EC 15:08 → 6NMEDSUR 17:42
PROVIDERS: ADMIT Hospitalist; ATTEND Hospitalist
DX: R07.89 Other chest pain (principal); I16.0 Hypertensive urgency; I10 Essential (primary) hypertension; F41.9 Anxiety disorder, unspecified; N40.0 Benign prostatic hyperplasia without lower urinary tract symptoms; I83.90 Asymptomatic varicose veins of unspecified lower extremity; I25.10 Atherosclerotic heart disease of native coronary artery without angina pectoris; K40.20 Bilateral inguinal hernia, without obstruction or gangrene, not specified as recurrent; K57.90 Diverticulosis of intestine, part unspecified, without perforation or abscess without bleeding; K86.2 Cyst of pancreas; J43.9 Emphysema, unspecified; I35.8 Other nonrheumatic aortic valve disorders; E78.5 Hyperlipidemia, unspecified; Z90.49 Acquired absence of other specified parts of digestive tract; Z86.73 Personal history of transient ischemic attack (TIA), and cerebral infarction without residual deficits; Z87.442 Personal history of urinary calculi; Z79.899 Other long term (current) drug therapy; Z79.1 Long term (current) use of non-steroidal anti-inflammatories (NSAID); Z79.84 Long term (current) use of oral hypoglycemic drugs; Z88.8 Allergy status to other drugs, medicaments and biological substances; K21.9 Gastro-esophageal reflux disease without esophagitis; Z87.891 Personal history of nicotine dependence; Z79.82 Long term (current) use of aspirin
CPT/HCPCS: 96372 ×2; 99285; 36415; 94760; 93005; 85379; 80053; 80048; 82150; 83615; 83690; 83735; 84484; 85025 ×2; 85610 ×2; 85730; 71046; 71275; 74174; G0378 ×2; Q9967; J1644 ×2

== ENCOUNTER → 2022-08-13 | Outpatient (CLI) | payer MEDICARE ==
--- NOTE | 2022-08-13 13:29 | MR ---
MR MRCP INDICATION: Patient age:Male; 77 years old; Reason for study: K86.89 disease of pancreas; COMPARISON: TECHNIQUE: Multi planar, T2-weighted imaging with and without fat saturation and chemical shift imag ing was performed of the abdomen. Then, heavily T2 weighted imaging (half-Fourier acquisition single- shot turbo spin-echo) was utilized in order to study the biliary system. Maximum intensity projectio n images were reconstructed from the original data of the biliary tree. No Gadolinium given. FINDINGS: MRCP: The intrahepatic ducts have a normal appearance. The common bile duct at the level of the [place] creatic head measures 5 mm in size. The common hepatic duct measures 6 mm in size. The gallbladder appears surgically absent. Pancreatic head/uncinate process complex multiloculated cystic structure which is multiloculated jacquelyn uring up to 4.2 x 3.8 x 2.5 cm is mildly larger than 2017 where it measured 3.4 x 2.6 x 2.4 cm. Multi ple thin septations are seen within this lesion. The main pancreatic duct measures up to 6 mm near th e papilla. The remainder of the main pancreatic duct is within normal limits. Additionally the pancre atic body is a high T2 focus measuring 6 mm with adjacent smaller high T2 foci also present.. Abdomen: The liver, spleen, and adrenal glands, have a normal noncontrast appearance. Bilateral renal high T2 cyst. No evidence of hydronephrosis. IMPRESSION: 1. Pancreatic head lesion is mildly larger when comparing back to 2017. Findings could represent ser ous cystadenoma versus other etiologies. 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 Consider surgical consultation for consideration of endoscopic ultrasou nd biopsy of dominant 4.2 cm pancreatic head/uncinate process lesion. 2. No evidence to suggest ductal stricture or choledocholithiasis. Mild dilation of the extrahepatic biliary ducts which can be seen in post cholecystectomy physiology.
== END | disposition home or self-care (01) ==
LOC: RADMRIMAIN 07:20
PROVIDERS: ATTEND Family Medicine
DX: K86.89 Other specified diseases of pancreas (principal)
CPT/HCPCS: 74181

== ENCOUNTER 2023-03-14 09:19 | Emergency (ER) | payer MEDICARE ==
--- NOTE | 2023-03-14 10:03 | ED ---
General Adult HPI - General Chief complaint: Dizziness Stated complaint: Can not mantain Balance Time Seen by Provider: 03/14/23 09:35 Source: patient, family, RN notes reviewed, old records reviewed Mode of arrival: ambulatory Limitations: no limitations - History of Present Illness Initial comments: This is a 72 citral male who presents emergency room complaining of dizziness. Patient states she got up this morning to go to the bathroom and he said he stood up out of bed the whole room was spinning. Patient denies any headache patient denies numbness weakness per patient denies slurred speech. Patient denies any headache. Patient states he is mildly nauseous initially. Patient states when he turns his head [id number] doesn't appear to have any dizziness but able looks up and down that causes quite a bit of dizziness. Patient denies chest pain palpitations difficulty breathing shortness of breath per patient denies any fever chills or cough per patient denies abdominal pain. - Related Data Home Medications Medication Instructions Recorded Confirmed Losartan Potassium [Cozaar] 100 mg PO DAILY 06/27/18 07/27/22 Aloe Vera 400mg 1 tab PO BID 07/27/22 07/27/22 Celecoxib [CeleBREX] 200 mg PO DAILY PRN 07/27/22 07/27/22 Cholecalciferol [Vitamin D3 (25 25 mcg PO DAILY 07/27/22 07/27/22 Mcg = 1000 Iu)] Famotidine [Pepcid] 20 mg PO BID 07/27/22 07/27/22 LORazepam [Ativan] 1 mg PO DAILY PRN 07/27/22 07/27/22 Meclizine [Antivert] 25 mg PO DAILY PRN 07/27/22 07/27/22 Metoclopramide [Reglan] 10 mg PO BID PRN 07/27/22 07/27/22 Natural Astaxanthin 6mg 1 cap PO DAILY 07/27/22 07/27/22 [place] Xl 300mg 1 cap PO BID 07/27/22 07/27/22 Probiotic & Prebiotic Blend 1 cap PO DAILY 07/27/22 07/27/22 Turmeric Root Extract [Turmeric 500 mg PO DAILY 07/27/22 07/27/22 Curcumin] metFORMIN HCL ER [Glucophage XR] 500 mg PO DAILY 07/27/22 07/27/22 Previous Rx's Medication Instructions Recorded Aspirin 81 mg PO DAILY #2 tab 07/27/22 Acetaminophen Tab [Tylenol] 650 mg PO Q6HR PRN tab 07/28/22 hydrALAZINE HCL [Apresoline] 25 mg PO BID 30 Days #60 tab 07/28/22 Allergies Allergy/AdvReac Type Severity Reaction Status Date / Time lisinopril Allergy Unknown BODY Verified 03/14/23 09:28 ACHES, EXHAUSTION, PAIN amlodipine Allergy SEVERE LEG Verified 03/14/23 09:28 PAIN, "MESSES UP HIS THINKING" ciprofloxacin [From Cipro] AdvReac Unknown SLURRED Verified 03/14/23 09:28 SPEECH ezetimibe [From Zetia] AdvReac Unknown BODY ACHES Verified 03/14/23 09:28 ofloxacin [From Floxin] AdvReac Unknown SLURRED Verified 03/14/23 09:28 SPEECH hydrocodone [From [place]] AdvReac Stomach Verified 03/14/23 09:28 upset, constipation moxifloxacin HCl AdvReac TREMBLE , Verified 03/14/23 09:28 [From Avelox] LIGHTHEADED, WEAK fluoroquinolones Allergy Itching Uncoded 03/14/23 09:28 Review of Systems ROS Statement: Those systems with pertinent positive or pertinent negative responses have been documented in the HPI. ROS Other: All systems not noted in ROS Statement are negative. Past Medical History Past Medical History: CVA/TIA, Diabetes Mellitus, GERD/Reflux, Hypertension, Osteoarthritis (OA), Pneumonia Additional Past Medical History / Comment(s): MULTIPLE TIA'S (7) - RIGHT SIDED WEAKNESS RESOLVED.- SLIGHT MEMORY IMPAIRMENT., VARICOSE VEINS, KIDNEY STONES, LICHEN PLANUS ON HIS LEGS, GARETH MARTINEZ.,DIABETES RESOLVED WITH WT LOSS., NOW HAS EPISODES OF HYPOGLYCEMIA., PINCHED NERVE NECK WITH PAIN IN NECK & SHOULDERS.,RECEIVING INJECTIONS FOR NECK PAIN, RIGHT ARM GOES NUMB AND A COUPLE FINGERS ARE NUMB., TORN RIGHT ROTATOR CUFF., BPH WITH UROLIFT PROCEDURE., PT HAS 2 METAL STENTS FROM HIS GUM TO SINUS CAVITY., ORAL LEUKOPLAKIA SURGERY., HX OF COLON POLYPS. History of Any Multi-Drug Resistant Organisms: None Reported Past Surgical History: Cholecystectomy Additional Past Surgical History / Comment(s): kidney stones removed, UROLIFT., DENTAL PROCEDURE WITH METAL STENTS FROM GUMS TO SINUS CAVITY., ORAL LEUKOPLAKIA SURGERY, . Past Anesthesia/Blood Transfusion Reactions: No Reported Reaction Additional Past Anesthesia/Blood Transfusion Reaction / Comment(s): HX OF PASSING OUT WITH STARTING IV Past Psychological History: Anxiety Smoking Status: Former smoker Past Alcohol Use History: Occasional Past Drug Use History: None Reported - Past Family History Mother Family Medical History: No Reported History General Exam - General Exam Comments Initial Comments: GENERAL: Patient is well-developed and well-nourished. Patient is nontoxic and well- hydrated and is in mild distress. ENT: Neck is soft and supple. No significant lymphadenopathy is noted. Oropharynx is clear. Moist mucous membranes. Neck has full range of motion without eliciting any pain. EYES: The sclera were anicteric and conjunctiva were pink and moist. Extraocular movements were intact and pupils were equal round and reactive to light. Eyelids were unremarkable. PULMONARY: Unlabored respirations. Good breath sounds bilaterally. No audible rales rhonchi or wheezing was noted. CARDIOVASCULAR: There is a regular rate and rhythm without any murmurs gallops or rubs. ABDOMEN: Soft and nontender with normal bowel sounds. SKIN: Skin is clear with no lesions or rashes and otherwise unremarkable. NEUROLOGIC: Patient is alert and oriented x3. Cranial nerves II through XII are grossly intact. Motor and sensory are also intact. Normal speech, volume and content. Symmetrical smile. Finger to nose testing bilaterally was normal MUSCULOSKELETAL: Normal extremities with adequate strength and full range of motion. No lower extremity swelling or edema. No calf tenderness. LYMPHATICS: No significant lymphadenopathy is noted PSYCHIATRIC: Normal psychiatric evaluation. Limitations: no limitations Course Vital Signs 03/14/23 03/14/23 03/14/23 09:22 10:00 10:30 Temperature 97.8 F Pulse Rate 58 L 53 L 51 L Respiratory 18 18 17 Rate Blood Pressure 168/71 157/81 152/79 O2 Sat by Pulse 98 96 96 Oximetry 03/14/23 11:30 Temperature Pulse Rate 55 L Respiratory 20 Rate Blood Pressure 144/79 O2 Sat by Pulse 96 Oximetry Medical Decision Making - Medical Decision Making EKG was interpreted by myself shows a sinus bradycardia 53 bpm VA interval 166 QRS is 106 QT interval 388 QTC is 371. Patient's EKG shows no ST segment elevation or depression. Was pt. sent in by a medical professional or institution (, PA, DENTAL TECHNICIAN APPRENTICE, urgent care, hospital, or jail...) When possible be specific @ -No Did you speak to anyone other than the patient for history (EMS, parent, family, police, friend...)? What history was obtained from this source @ -No Did you review nursing and triage notes (agree or disagree)? Why? @ -I reviewed and agree with nursing and triage notes Were old charts reviewed (outside hosp., previous admission, EMS record, old EKG, old radiological studies, urgent care reports/EKG's, jail records)? Report findings @ -[place] prior chart prior labwork on this patient Differential Diagnosis (chest pain, altered mental status, abdominal pain women, abdominal pain men, vaginal bleeding, weakness, fever, dyspnea, syncope, headache, dizziness, GI bleed, back pain, seizure, CVA, palpatations, mental health, musculoskeletal)? @ -Differential Dizziness: Benign paroxysmal positional Vertigo, Menieres disease, otitis media, acoustic neuroma, vertebrobasilar insufficiency, cerebellar stroke, encephalitis, hypovolemic, arrhythmia, coronary artery syndrome, anemia, this is not meant to be an all-inclusive list EKG interpreted by me (3pts min.). @ -As above X-rays interpreted by me (1pt min.). @ -Chest x-ray shows no acute abnormality CT interpreted by me (1pt min.). @ -CT of the brain shows no acute abnormality U/S interpreted by me (1pt. min.). @ -None done What testing was considered but not performed or refused? (CT, X-rays, U/S, labs)? Why? @ -None What meds were considered but not given or refused? Why? @ -None Did you discuss the management of the patient with other professionals (professionals i.e. , SALINA, DENTAL TECHNICIAN APPRENTICE, lab, RT, psych nurse, social service manager, clothes drier assembler, teacher, transportation security officer, case finisher)? Give summary @ -No Was smoking cessation discussed for >3mins.? @ -No Was critical care preformed (if so, how long)? @ -No Were there social determinants of health that impacted care today? How? (Homelessness, low income, unemployed, alcoholism, drug addiction, t ransportation, low edu. Level, literacy, decrease access to med. care, [place] [facility], rehab)? @ -No Was there de-escalation of care discussed even if they declined (Discuss DNR or withdrawal of care, Hospice)? DNR status @ -No What co-morbidities impacted this encounter? (DM, HTN, Smoking, COPD, CAD, Cancer, CVA, ARF, Chemo, Hep., AIDS, mental health diagnosis, sleep apnea, morbid obesity)? @ -None Was patient admitted / discharged? Hospital course, mention meds given and route, prescriptions, significant lab abnormalities, going to OR and other pertinent info. @ -Patient was given a helmet and his symptoms seemed to be much improved throughout the ED course. Patient was able to ambulate without problem. Patient to follow-up. Nose and throat. Patient has probable vertigo. Undiagnosed new problem with uncertain prognosis? @ -No Drug Therapy requiring intensive monitoring for toxicity (Heparin, Nitro, In sulin, Cardizem)? @ -No Were any procedures done? @ -No Diagnosis/symptom? @ -Vertigo Acute, or Chronic, or Acute on Chronic? @ -Acute Uncomplicated (without systemic symptoms) or Complicated (systemic symptoms)? @ -Complicated Side effects of treatment? @ -No Exacerbation, Progression, or Severe Exacerbation? @ -No Poses a threat to life or bodily function? How? (Chest pain, [place], MT, pneumonia, PE, COPD, DKA, ARF, appy, cholecystitis, CVA, Diverticulitis, Homicidal, Suicidal, threat to staff... and all critical care pts) @ -No - Lab Data Result diagrams: 03/14/23 10:11 03/14/23 10:11 Lab Results 03/14/23 03/14/23 03/14/23 Range/Units 10:11 10:11 10:11 WBC 6.5 (3.8-10.6) k/uL RBC 4.02 L (4.30-5.90) m/uL Hgb 13.7 (13.0-17.5) gm/dL Hct 41.3 (39.0-53.0) % MCV 102.9 H (80.0-100.0) fL MCH 34.2 (25.0-35.0) pg MCHC 33.2 (31.0-37.0) g/dL RDW 13.0 (11.5-15.5) % Plt Count 217 (150-450) k/uL MPV 7.8 Neutrophils % 68 % Lymphocytes % 22 % Monocytes % 6 % Eosinophils % 3 % Basophils % 0 % Neutrophils # 4.4 (1.3-7.7) k/uL Lymphocytes # 1.4 (1.0-4.8) k/uL Monocytes # 0.4 (0-1.0) k/uL Eosinophils # 0.2 (0-0.7) k/uL Basophils # 0.0 (0-0.2) k/uL Macrocytosis Slight PT 10.6 (9.0-12.0) sec INR 1.0 (<1.2) APTT 24.3 (22.0-30.0) sec Sodium 137 (137-145) mmol/L Potassium 4.8 (3.5-5.1) mmol/L Chloride 105 (98-107) mmol/L Carbon Dioxide 22 (22-30) mmol/L Anion Gap 10 mmol/L BUN 25 H (9-20) mg/dL Creatinine 1.18 (0.66-1.25) mg/dL Est GFR (CKD-EPI)AfAm 69 (>60 ml/min/1.73 sqM) Est GFR (CKD-EPI)NonAf 60 (>60 ml/min/1.73 sqM) Glucose 135 H (74-99) mg/dL Calcium 9.2 (8.4-10.2) mg/dL Magnesium 1.9 (1.6-2.3) mg/dL Total Bilirubin 0.9 (0.2-1.3) mg/dL AST 33 (17-59) U/L ALT 21 (4-49) U/L Alkaline Phosphatase 59 (38-126) U/L Troponin I (0.000-0.034) ng/mL Total Protein 6.8 (6.3-8.2) g/dL Albumin 4.2 (3.5-5.0) g/dL 03/14/23 Range/Units 10:11 WBC (3.8-10.6) k/uL RBC (4.30-5.90) m/uL Hgb (13.0-17.5) gm/dL Hct (39.0-53.0) % MCV (80.0-100.0) fL MCH (25.0-35.0) pg MCHC (31.0-37.0) g/dL RDW (11.5-15.5) % Plt Count (150-450) k/uL MPV Neutrophils % % Lymphocytes % % Monocytes % % Eosinophils % % Basophils % % Neutrophils # (1.3-7.7) k/uL Lymphocytes # (1.0-4.8) k/uL Monocytes # (0-1.0) k/uL Eosinophils # (0-0.7) k/uL Basophils # (0-0.2) k/uL Macrocytosis PT (9.0-12.0) sec INR (<1.2) APTT (22.0-30.0) sec Sodium (137-145) mmol/L Potassium (3.5-5.1) mmol/L Chloride (98-107) mmol/L Carbon Dioxide (22-30) mmol/L Anion Gap mmol/L BUN (9-20) mg/dL Creatinine (0.66-1.25) mg/dL Est GFR (CKD-EPI)AfAm (>60 ml/min/1.73 sqM) Est GFR (CKD-EPI)NonAf (>60 ml/min/1.73 sqM) Glucose (74-99) mg/dL Calcium (8.4-10.2) mg/dL Magnesium (1.6-2.3) mg/dL Total Bilirubin (0.2-1.3) mg/dL AST (17-59) U/L ALT (4-49) U/L Alkaline Phosphatase (38-126) U/L Troponin I <0.012 (0.000-0.034) ng/mL Total Protein (6.3-8.2) g/dL Albumin (3.5-5.0) g/dL Disposition Clinical Impression: Vertigo Disposition: ADMITTED IP TO THIS [facility] Instructions (If sedation given, give patient instructions): Vertigo (ED) Referrals: Marshall Robertson MD [Primary Care Provider] - 1-2 days Time of Disposition: 12:32
[2023-03-14 10:39] LABS: Basophils % (A) 0 %; Eosinophils # (A) 0.2 k/uL (0-0.7); Eosinophils % (A) 3 %; HCT 41.3 % (39.0-53.0); HGB 13.7 gm/dL (13.0-17.5); Lymphocytes # (A) 1.4 k/uL (1.0-4.8); Lymphocytes % (A) 22 %; MCH 34.2 pg (25.0-35.0); MCHC 33.2 g/dL (31.0-37.0); MCV 102.9 fL (80.0-100.0); Macrocytosis Slight; Mean Platelet Volume 7.8; Monocytes # (A) 0.4 k/uL (0-1.0); Monocytes % (A) 6 %; Neutrophils # (A) 4.4 k/uL (1.3-7.7); Neutrophils % (A) 68 %; Platelet Count 217 k/uL (150-450); RBC 4.02 m/uL (4.30-5.90); WBC 6.5 k/uL (3.8-10.6)
--- NOTE | 2023-03-14 10:40 | XR ---
EXAMINATION TYPE: XR chest 2V DATE OF EXAM: 03/14/2023 COMPARISON: 07/27/2022 HISTORY: 78-year-old male with chest pain TECHNIQUE: AP and lateral views FINDINGS: Heart normal size. Aorta and pulmonary vasculature are within normal limits. No consolidation or pleu ral effusion. [facility] in the mid thoracic spine. IMPRESSION: No acute cardiopulmonary process.
--- NOTE | 2023-03-14 10:42 | CT ---
EXAMINATION TYPE: CT brain wo con DATE OF EXAM: 03/14/2023 COMPARISON: 11/13/2021 HISTORY: 78-year-old male Dizziness, Light headed, unsteady gait TECHNIQUE: Examination was done in axial plane without intravenous contrast. Coronal and sagittal r econstructions performed. CT DLP: 1099.4 mGycm Automated exposure control for dose reduction was used. FINDINGS: There is no evidence of acute intracranial hemorrhage, acute ischemic changes, mass, mass-effect, or extra-axial fluid collection. There is no effacement of cerebral sulci or basal subarachnoid cister ns. There is no hydrocephalus. There is no midline shift. Casanova-white matter distinction is preserv ed. Mild age-related generalized supratentorial volume loss. Prominent perivascular space suggested in th e right centrum semiovale. There is old blowout fracture of the medial right orbital wall redemonstrated. There are various sinu ses and mastoid air cells are pneumatized. Rightward nasal septal deviation. IMPRESSION: Mild generalized cerebral atrophy. No acute intracranial abnormality seen.
[2023-03-14 10:48] LABS: Partial Thromboplastin Time 24.3 sec (22.0-30.0); Prothrombin Time 10.6 sec (9.0-12.0)
[2023-03-14 10:58] LABS: ALT 21 U/L (4-49); African American GFR (CKD) 69 (>60 ml/min/1.73 sqM); Albumin 4.2 g/dL (3.5-5.0); Anion Gap 10 mmol/L; Blood Urea Nitrogen 25 mg/dL (9-20); Calcium 9.2 mg/dL (8.4-10.2); Carbon Dioxide 22 mmol/L (22-30); Chloride 105 mmol/L (98-107); Glucose 135 mg/dL (74-99); Non-African American GFR(CKD) 60 (>60 ml/min/1.73 sqM); Sodium 137 mmol/L (137-145); Total Bilirubin 0.9 mg/dL (0.2-1.3); Total Protein 6.8 g/dL (6.3-8.2)
[2023-03-14 11:04] LABS: AST 33 U/L (17-59); Alkaline Phosphatase 59 U/L (38-126); Magnesium 1.9 mg/dL (1.6-2.3); Potassium 4.8 mmol/L (3.5-5.1)
[2023-03-14] MEDS ORDERED: SCOPOLAMINE 1 MG/72 HR PATCH TRANSDERM STA (11:33)
[2023-03-14 12:48] VITALS: BP 131/80; PULSE 51; RESP 21; TEMP 98.2
== END 2023-03-14 12:42 | disposition other institution (70) ==
LOC: EC 09:19
DX: R42 Dizziness and giddiness (principal); I10 Essential (primary) hypertension; E11.9 Type 2 diabetes mellitus without complications; K21.9 Gastro-esophageal reflux disease without esophagitis; M19.90 Unspecified osteoarthritis, unspecified site; F41.9 Anxiety disorder, unspecified; Z79.899 Other long term (current) drug therapy; Z87.891 Personal history of nicotine dependence; Z88.1 Allergy status to other antibiotic agents; Z88.5 Allergy status to narcotic agent; Z88.8 Allergy status to other drugs, medicaments and biological substances; Z90.49 Acquired absence of other specified parts of digestive tract
CPT/HCPCS: 36415; 70450; 71046; 80053; 83735; 84484; 85025; 85610; 85730; 93005; 99285

== ENCOUNTER 2023-07-30 09:18 | Observation (INO) | payer MEDICARE ==
--- NOTE | 2023-07-30 10:08 | XR ---
EXAMINATION TYPE: XR chest 2V DATE OF EXAM: 07/30/2023 COMPARISON: NONE HISTORY: Dizziness. TECHNIQUE: Frontal and lateral views of the chest are obtained. FINDINGS: There is no focal air space opacity, pleural effusion, or pneumothorax seen. The cardiac silhouette size is within normal limits. The osseous structures are intact. IMPRESSION: No acute cardiopulmonary process.
[2023-07-30 10:17] LABS: Partial Thromboplastin Time 24.1 sec (22.0-30.0); Prothrombin Time 10.6 sec (10.0-12.5)
[2023-07-30 10:18] LABS: Basophils % (A) 1 %; Eosinophils # (A) 0.2 k/uL (0-0.7); Eosinophils % (A) 2 %; HCT 43.7 % (39.0-53.0); HGB 15.2 gm/dL (13.0-17.5); Lymphocytes # (A) 1.5 k/uL (1.0-4.8); Lymphocytes % (A) 18 %; MCH 35.2 pg (25.0-35.0); MCHC 34.8 g/dL (31.0-37.0); MCV 101.2 fL (80.0-100.0); Macrocytosis Slight; Mean Platelet Volume 8.3; Monocytes # (A) 0.5 k/uL (0-1.0); Monocytes % (A) 6 %; Neutrophils # (A) 5.7 k/uL (1.3-7.7); Neutrophils % (A) 71 %; Platelet Count 268 k/uL (150-450); RBC 4.32 m/uL (4.30-5.90); RDW 13.1 % (11.5-15.5)
[2023-07-30 10:34] LABS: ALT 24 U/L (4-49); AST 22 U/L (17-59); African American GFR (CKD) 56 (>60 ml/min/1.73 sqM); Albumin 4.5 g/dL (3.5-5.0); Alkaline Phosphatase 84 U/L (38-126); Anion Gap 15 mmol/L; Blood Urea Nitrogen 34 mg/dL (9-20); Calcium 10.3 mg/dL (8.4-10.2); Carbon Dioxide 23 mmol/L (22-30); Chloride 103 mmol/L (98-107); Glucose 151 mg/dL (74-99); Magnesium 1.8 mg/dL (1.6-2.3); Non-African American GFR(CKD) 49 (>60 ml/min/1.73 sqM); Potassium 4.6 mmol/L (3.5-5.1); Sodium 141 mmol/L (137-145); Total Bilirubin 0.7 mg/dL (0.2-1.3); Total Protein 7.2 g/dL (6.3-8.2)
--- NOTE | 2023-07-30 10:46 | ED ---
Dizziness HPI - General Source: patient, family, RN notes reviewed Mode of arrival: ambulatory Limitations: no limitations <Tiffany Gotti - Last Filed: 07/30/23 10:41> <Anne Mendez - Last Filed: 07/30/23 16:17> - General Chief Complaint: Dizziness Stated Complaint: Dizziness Time Seen by Provider: 07/30/23 10:41 - History of Present Illness Initial Comments: Patient is a 78 her old male presented ER with chief complaint of dizziness. Patient states that went on for the past couple days. Patient denies any fevers, chills, night sweats, chest pain, shortness of breath. Family states he has been forgetting things often for about 2 weeks. She states this was a sign of his past TIA. (Tiffany Gotti) 78-year-old male with history of vertigo, strokes and multiple TIAs who presents to the emergency department with dizziness and reported confusion. Patient states that he was at home when he began having vertiginous symptoms. He did take a meclizine overnights. States that when he awoke this morning he continued to have room spinning sensation and therefore took another one. He feels as if he is having one of his vertigo episodes however is more concerned because he was having some confusion. She states that he has been extremely forgetful over the past couple weeks. She states that this morning he seemed extremely confused with his words. Reports that the symptoms have improved at this time however states that they are similar to when he had previous TIAs in the past. He takes aspirin. No use of Plavix. Normally follows with Dr. Che. States he didn't want to come to the hospital therefore he called Dr. Che however Dr. Che referred him to the ER. He denies any visual changes. No headache. No chest pain or shortness of breath. No other alleviating, precipitating or modifying factors (Anne Mendez) - Related Data Home Medications Medication Instructions Recorded Confirmed Losartan Potassium [Cozaar] 100 mg PO DAILY 06/27/18 07/30/23 Cholecalciferol [Vitamin D3 (25 25 mcg PO DAILY 07/27/22 07/30/23 Mcg = 1000 Iu)] Famotidine [Pepcid] 20 mg PO BID-W/MEALS 07/27/22 07/30/23 LORazepam [Ativan] 1 mg PO BID PRN 07/27/22 07/30/23 Meclizine [Antivert] 25 mg PO BID 07/27/22 07/30/23 Natural Astaxanthin 6mg 1 cap PO Q48H 07/27/22 07/30/23 Probiotic & Prebiotic Blend 1 cap PO DAILY 07/27/22 07/30/23 Turmeric Root Extract [Turmeric 500 mg PO DAILY 07/27/22 07/30/23 Curcumin] metFORMIN HCL ER [Glucophage XR] 250 mg PO BID 07/27/22 07/30/23 Aloe Vera 200 mg PO BID 07/30/23 07/30/23 Biotin 5,000 mcg PO DAILY 07/30/23 07/30/23 Cyanocobalamin [Vitamin B-12] 250 mcg PO DAILY 07/30/23 07/30/23 Melatonin 5 mg PO HS PRN 07/30/23 07/30/23 Natural B Complex Supplement 1 tab PO DAILY 07/30/23 07/30/23 Sildenafil Citrate [Sildenafil] 20 - 100 mg PO DAILY PRN 07/30/23 07/30/23 Truevision With Lutein Eye 1 tab PO Q48H 07/30/23 07/30/23 Supplement hydrALAZINE HCL [Apresoline] 50 mg PO BID 07/30/23 07/30/23 hydroCHLOROthiazide [Hydrodiuril] 25 mg PO DAILY 07/30/23 07/30/23 Allergies Allergy/AdvReac Type Severity Reaction Status Date / Time lisinopril Allergy Unknown BODY Verified 07/30/23 12:57 ACHES, EXHAUSTION, PAIN amlodipine Allergy SEVERE LEG Verified 07/30/23 12:57 PAIN, "MESSES UP HIS THINKING" ciprofloxacin [From Cipro] AdvReac Unknown SLURRED Verified 07/30/23 12:57 SPEECH ezetimibe [From Zetia] AdvReac Unknown BODY ACHES Verified 07/30/23 12:57 ofloxacin [From Floxin] AdvReac Unknown SLURRED Verified 07/30/23 12:57 SPEECH hydrocodone [From [place]] AdvReac Stomach Verified 07/30/23 12:57 upset, constipation moxifloxacin HCl AdvReac TREMBLE , Verified 07/30/23 12:57 [From Avelox] LIGHTHEADED, WEAK fluoroquinolones Allergy Itching Uncoded 07/30/23 09:29 Review of Systems ROS Other: All systems not noted in ROS Statement are negative. <Tiffany Gotti - Last Filed: 07/30/23 10:41> ROS Other: All systems not noted in ROS Statement are negative. <MalikjesseAnne Carl - Last Filed: 07/30/23 16:17> ROS Statement: Those systems with pertinent positive or pertinent negative responses have been documented in the HPI. Past Medical History Past Medical History: CVA/TIA, Diabetes Mellitus, GERD/Reflux, Hypertension, Osteoarthritis (OA), Pneumonia Additional Past Medical History / Comment(s): MULTIPLE TIA'S (7) - RIGHT SIDED WEAKNESS RESOLVED.- SLIGHT MEMORY IMPAIRMENT., VARICOSE VEINS, KIDNEY STONES, LICHEN PLANUS ON HIS LEGS, GARETH MARTINEZ.,DIABETES RESOLVED WITH WT LOSS., NOW HAS EPISODES OF HYPOGLYCEMIA., PINCHED NERVE NECK WITH PAIN IN NECK & SHOULDERS.,RECEIVING INJECTIONS FOR NECK PAIN, RIGHT ARM GOES NUMB AND A COUPLE FINGERS ARE NUMB., TORN RIGHT ROTATOR CUFF., BPH WITH UROLIFT PROCEDURE., PT HAS 2 METAL STENTS FROM HIS GUM TO SINUS CAVITY., ORAL LEUKOPLAKIA SURGERY., HX OF COLON POLYPS. History of Any Multi-Drug Resistant Organisms: None Reported Past Surgical History: Cholecystectomy Additional Past Surgical History / Comment(s): kidney stones removed, UROLIFT., DENTAL PROCEDURE WITH METAL STENTS FROM GUMS TO SINUS CAVITY., ORAL LEUKOPLAKIA SURGERY, . Past Anesthesia/Blood Transfusion Reactions: No Reported Reaction Additional Past Anesthesia/Blood Transfusion Reaction / Comment(s): HX OF PASSING OUT WITH STARTING IV Past Psychological History: Anxiety Smoking Status: Former smoker Past Alcohol Use History: Occasional Past Drug Use History: None Reported - Past Family History Mother Family Medical History: No Reported History <Tiffany Gotti - Last Filed: 07/30/23 10:41> General Exam Limitations: no limitations <Tiffany Gotti - Last Filed: 07/30/23 10:41> General appearance: alert, in no apparent distress Head exam: Present: atraumatic, normocephalic, normal inspection Eye exam: Present: normal appearance, PERRL, EOMI, nystagmus (Horizontal). Absent: scleral icterus, conjunctival injection, periorbital swelling ENT exam: Present: normal exam, mucous membranes moist Neck exam: Present: normal inspection. Absent: tenderness, meningismus, lymphadenopathy Respiratory exam: Present: normal lung sounds bilaterally. Absent: respiratory distress, wheezes, rales, rhonchi, stridor Cardiovascular Exam: Present: regular rate, normal rhythm, normal heart sounds. Absent: systolic murmur, diastolic murmur, rubs, gallop, clicks GI/Abdominal exam: Present: soft, normal bowel sounds. Absent: distended, tenderness, guarding, rebound, rigid Extremities exam: Present: normal inspection, full ROM, normal capillary refill. Absent: tenderness, pedal edema, joint swelling, calf tenderness Back exam: Present: normal inspection Neurological exam: Present: alert, oriented X3, CN II-XII intact, other (Finger to nose is difficult for the patient bilaterally and he does have some ataxia) Psychiatric exam: Present: normal affect, normal mood Skin exam: Present: warm, dry, intact, normal color. Absent: rash <Anne Mendez - Last Filed: 07/30/23 16:17> - General Exam Comments Initial Comments: Visual Physical Exam Vital signs reviewed General: Well-appearing, nontoxic, no acute distress. Head: Normocephalic, atraumatic Eyes: PERRLA, EOMI ENT: Airway patent Chest: Nonlabored breathing Skin: No visual rash, normal skin tone Neuro: Alert and oriented 3 Musculoskeletal: No gross abnormalities (Tiffany Gotti) Course Vital Signs 07/30/23 07/30/23 07/30/23 09:26 11:39 13:00 Temperature 98.2 F Pulse Rate 54 L 52 L 58 L Respiratory 20 18 18 Rate Blood Pressure 156/78 159/90 159/90 O2 Sat by Pulse 99 99 98 Oximetry 07/30/23 07/30/23 15:00 16:00 Temperature Pulse Rate 58 L 57 L Respiratory 18 18 Rate Blood Pressure 152/71 123/67 O2 Sat by Pulse 98 98 Oximetry Medical Decision Making - Lab Data Result diagrams: 07/30/23 09:30 07/30/23 09:30 <Tiffany Gotti - Last Filed: 07/30/23 10:41> - Lab Data Result diagrams: 07/30/23 09:30 07/30/23 09:30 <Anne Mendez - Last Filed: 07/30/23 16:17> - Medical Decision Making Visual Physical Exam Vital signs reviewed General: Well-appearing, nontoxic, no acute distress. Head: Normocephalic, atraumatic Eyes: PERRLA, EOMI ENT: Airway patent Chest: Nonlabored breathing Skin: No visual rash, normal skin tone Neuro: Alert and oriented 3 Musculoskeletal: No gross abnormalities (Tiffany Gotti) Was pt. sent in by a medical professional or institution (, PA, RESIDENT MEDICAL OFFICER, urgent care, hospital, or detention...) When possible be specific @ -No Did you speak to anyone other than the patient for history (EMS, parent, family, police, friend...)? What history was obtained from this source @ -I spoke with the patient's Did you review nursing and triage notes (agree or disagree)? Why? @ -I reviewed and agree with nursing and triage notes Were old charts reviewed (outside hosp., previous admission, EMS record, old EKG, old radiological studies, urgent care reports/EKG's, detention records)? Report findings @ -I reviewed patient's previous charting. He has been here several times for the same complaint. Patient had been admitted for an episode like this Differential Diagnosis (chest pain, altered mental status, abdominal pain women, abdominal pain men, vaginal bleeding, weakness, fever, dyspnea, syncope, headache, dizziness, GI bleed, back pain, seizure, CVA, palpatations, mental health, musculoskeletal)? @ -Differential Dizziness: Benign paroxysmal positional Vertigo, Menieres disease, otitis media, acoustic neuroma, vertebrobasilar insufficiency, cerebellar stroke, encephalitis, hypovolemic, arrhythmia, coronary artery syndrome, anemia, this is not meant to be an all-inclusive list EKG interpreted by me (3pts min.). @ -Yes and demonstrates sinus bradycardia with a rate of 56. NM 139. QRS 110. QTC of 378. No acute ST segment elevations or depressions X-rays interpreted by me (1pt min.). @ -Yes and demonstrates no acute process CT interpreted by me (1pt min.). @ -Yes and demonstrates no acute process U/S interpreted by me (1pt. min.). @ -None done What testing was considered but not performed or refused? (CT, X-rays, U/S, labs)? Why? @ -None What meds were considered but not given or refused? Why? @ -None Did you discuss the management of the patient with other professionals (professionals i.e. , SALINA, RESIDENT MEDICAL OFFICER, lab, RT, psych nurse, administrator social welfare, highway technician, teacher, security officer supervisor, case folder)? Give summary @ -I spoke with Dr. nichols who will admit the patient Was smoking cessation discussed for >3mins.? @ -No Was critical care preformed (if so, how long)? @ -No Were there social determinants of health that impacted care today? How? (Homelessness, low income, unemployed, alcoholism, drug addiction, transportation, low edu. Level, literacy, decrease access to med. care, group home, rehab)? @ -No Was there de-escalation of care discussed even if they declined (Discuss DNR or withdrawal of care, Hospice)? DNR status @ -No What co-morbidities impacted this encounter? (DM, HTN, Smoking, COPD, CAD, Cancer, CVA, ARF, Chemo, Hep., AIDS, mental health diagnosis, sleep apnea, morbid obesity)? @ -Vertigo, TIA, CVA Was patient admitted / discharged? Hospital course, mention meds given and route, prescriptions, significant lab abnormalities, going to OR and other pertinent info. @ -On arrival patient is placed into bed 6. A thorough history and physical exam is performed. NIH is assessed. Patient does have some difficulties with finger to nose bilaterally however he does have a intention tremor. IV is established. Laboratory studies are conducted. Patient was given a dose of Valium for his dizziness. CT angiography is performed. Results are discussed with the patient and family. Due to reported altered mental status the patient will be admitted. I spoke with Dr. nichols for admission. Undiagnosed new problem with uncertain prognosis? @ -Yes Drug Therapy requiring intensive monitoring for toxicity (Heparin, Nitro, Insulin, Cardizem)? @ -No Were any procedures done? @ -No Diagnosis/symptom? @ -Acute encephalopathy, acute vertigo, possible TIA Acute, or Chronic, or Acute on Chronic? @ -Acute on chronic Uncomplicated (without systemic symptoms) or Complicated (systemic symptoms)? @ -Complicated Side effects of treatment? @ -No Exacerbation, Progression, or Severe Exacerbation? @ -No Poses a threat to life or bodily function? How? (Chest pain, USA, NV, pneumonia, PE, COPD, DKA, ARF, appy, cholecystitis, CVA, Diverticulitis, Homicidal, Suicid al, threat to staff... and all critical care pts) @ -No (Anne Mendez) - Lab Data Lab Results 07/30/23 07/30/23 07/30/23 Range/Units 09:30 09:30 09:30 WBC 8.0 (3.8-10.6) k/uL RBC 4.32 (4.30-5.90) m/uL Hgb 15.2 (13.0-17.5) gm/dL Hct 43.7 (39.0-53.0) % MCV 101.2 H (80.0-100.0) fL MCH 35.2 H (25.0-35.0) pg MCHC 34.8 (31.0-37.0) g/dL RDW 13.1 (11.5-15.5) % Plt Count 268 (150-450) k/uL MPV 8.3 Neutrophils % 71 % Lymphocytes % 18 % Monocytes % 6 % Eosinophils % 2 % Basophils % 1 % Neutrophils # 5.7 (1.3-7.7) k/uL Lymphocytes # 1.5 (1.0-4.8) k/uL Monocytes # 0.5 (0-1.0) k/uL Eosinophils # 0.2 (0-0.7) k/uL Basophils # 0.0 (0-0.2) k/uL Macrocytosis Slight PT 10.6 (10.0-12.5) sec INR 1.0 (<1.2) APTT 24.1 (22.0-30.0) sec Sodium 141 (137-145) mmol/L Potassium 4.6 (3.5-5.1) mmol/L Chloride 103 (98-107) mmol/L Carbon Dioxide 23 (22-30) mmol/L Anion Gap 15 mmol/L BUN 34 H (9-20) mg/dL Creatinine 1.40 H (0.66-1.25) mg/dL Est GFR (CKD-EPI)AfAm 56 (>60 ml/min/1.73 sqM) Est GFR (CKD-EPI)NonAf 49 (>60 ml/min/1.73 sqM) Glucose 151 H (74-99) mg/dL Calcium 10.3 H (8.4-10.2) mg/dL Magnesium 1.8 (1.6-2.3) mg/dL Total Bilirubin 0.7 (0.2-1.3) mg/dL AST 22 (17-59) U/L ALT 24 (4-49) U/L Alkaline Phosphatase 84 (38-126) U/L Troponin I (0.000-0.034) ng/mL Total Protein 7.2 (6.3-8.2) g/dL Albumin 4.5 (3.5-5.0) g/dL 07/30/23 Range/Units 09:30 WBC (3.8-10.6) k/uL RBC (4.30-5.90) m/uL Hgb (13.0-17.5) gm/dL Hct (39.0-53.0) % MCV (80.0-100.0) fL MCH (25.0-35.0) pg MCHC (31.0-37.0) g/dL RDW (11.5-15.5) % Plt Count (150-450) k/uL MPV Neutrophils % % Lymphocytes % % Monocytes % % Eosinophils % % Basophils % % Neutrophils # (1.3-7.7) k/uL Lymphocytes # (1.0-4.8) k/uL Monocytes # (0-1.0) k/uL Eosinophils # (0-0.7) k/uL Basophils # (0-0.2) k/uL Macrocytosis PT (10.0-12.5) sec INR (<1.2) APTT (22.0-30.0) sec Sodium (137-145) mmol/L Potassium (3.5-5.1) mmol/L Chloride (98-107) mmol/L Carbon Dioxide (22-30) mmol/L Anion Gap mmol/L BUN (9-20) mg/dL Creatinine (0.66-1.25) mg/dL Est GFR (CKD-EPI)AfAm (>60 ml/min/1.73 sqM) Est GFR (CKD-EPI)NonAf (>60 ml/min/1.73 sqM) Glucose (74-99) mg/dL Calcium (8.4-10.2) mg/dL Magnesium (1.6-2.3) mg/dL Total Bilirubin (0.2-1.3) mg/dL AST (17-59) U/L ALT (4-49) U/L Alkaline Phosphatase (38-126) U/L Troponin I <0.012 (0.000-0.034) ng/mL Total Protein (6.3-8.2) g/dL Albumin (3.5-5.0) g/dL Disposition <Tiffany Gotti - Last Filed: 07/30/23 10:41> Is patient prescribed a controlled substance at d/c from ED?: No Time of Disposition: 13:22 Decision to Admit Reason: Admit from EC Decision Date: 07/30/23 Decision Time: 13:22 <Anne Mendez - Last Filed: 07/30/23 16:17> Clinical Impression: Vertigo, Transient amnesia Disposition: ADMITTED IP TO THIS [facility] Condition: Stable
--- NOTE | 2023-07-30 11:25 | CT ---
EXAMINATION TYPE: CT brain wo con DATE OF EXAM: 07/30/2023 COMPARISON: None available. HISTORY: Dizziness. CT DLP: 1138.4 mGycm Automated exposure control for dose reduction was used. FINDINGS: There is no acute intracranial hemorrhage, mass, mass effect, midline shift, extra-axial fluid collec tion or hydrocephalus. The solomon-white distinction is intact without evidence of an acute major vessel infarct. The visualized paranasal sinuses and mastoid air cells are clear. IMPRESSION: NO ACUTE INTRACRANIAL PROCESS.
--- NOTE | 2023-07-30 12:35 | CT ---
EXAMINATION TYPE: CT angio head neck CT DLP: 494.7 mGycm, Automated exposure control for dose reduction was used. DATE OF EXAM: 07/30/2023 12:15 PM COMPARISON: 04/21/2020. CLINICAL INDICATION:Male, 78 years old with history of dizzy; TECHNIQUE: Axially acquired helical CT angiogram of the head and neck was obtained with contrast. Axi al images are supplemented with 3D reconstructions and MIP images which were post-processed at an in dependent workstation. NASCET criteria used. Contrast used:65 mL of Isovue 370 with IV Contrast, Oral contrast used: None. FINDINGS: CTA HEAD: No evidence of acute intracranial hemorrhage, mass effect, or midline shift. The ventricles, sulci, a nd cisterns are unremarkable. The visualized portions of the internal carotid arteries, middle cerebral arteries, anterior cerebral arteries, and posterior cerebral arteries are patent. Atherosclerosis of the carotid siphon on the r ight. No evidence for significant stenosis. The basilar and vertebral arteries are patent. CTA NECK: Right Carotid System: The common carotid and external carotid arteries are patent. There is less than 25% stenosis at the c arotid bifurcation secondary to calcified/noncalcified plaque. The rest of the internal carotid arter y is patent. Left Carotid System: The common carotid and external carotid arteries are patent. There is less than 25% stenosis at the c arotid bifurcation secondary to calcified/noncalcified plaque. The rest of the internal carotid arter y is patent. Vertebral arteries are patent without evidence hemodynamically significant stenosis. There is a three-vessel aortic arch. The origins of the great vessels are patent. No evidence of hemo dynamically significant stenosis. Upper thorax: Paraseptal and centrilobular emphysema changes in the lung apices. IMPRESSION: 1. No evidence of dissection of the cervical internal carotid arteries or vertebral arteries or any e vidence of significant stenosis at the carotid bifurcations. 2. No evidence of intracranial high-grade stenosis or intracranial aneurysm.
[2023-07-30] MEDS ORDERED: MELATONIN 5 MG TABLET PO PRN (13:11)
[2023-07-30] MEDS ORDERED: LORazepam 1 MG TAB PO PRN (13:11)
[2023-07-30] MEDS ORDERED: NON FORMULARY DRUG (Biotin [Biotin] 5,000 MCG Tab.Chew) PO SCH (13:15)
[2023-07-30] MEDS ORDERED: ASPIRIN 81 MG PO STA ×2 (13:26)
[2023-07-30] MEDS ORDERED: SODIUM CHLORIDE 0.9% 1,000 ML IV SCH (13:30)
[2023-07-30] MEDS ORDERED: DEXTROSE 50% SYRINGE 50 ML IVP PRN ×2 (13:38)
[2023-07-30] MEDS: CHOLECALCIFEROL 25 MCG (1000 IU) TABLET PO SCH (13:40)
[2023-07-30] MEDS: MAGNESIUM SULFATE-D5W PMX 1 GM in DEXTROSE/WATER 1 100ML.BAG IVPB SCH ×2 (13:43→14:44)
--- NOTE | 2023-07-30 15:00 | P.HPIM ---
History of Present Illness H&P Date: 07/30/23 Chief Complaint: Dizziness * 78-year-old gentleman with past medical history significant for nonobstructive coronary artery disease, history of multiple TIAs, dyslipidemia, diabetes mellitus type 2, hypertension, BPH, former tobacco use presents to the emergency department with the complaint of worsening dizziness. Patient said his symptoms have been getting worse for the last 48 hours. Patient states the symptoms were intermittent for the last 2 weeks however he decided to seek medical attention due to worsening symptoms especially in 48 hours * Workup in ER included CT head which was negative for acute intracranial process * CT angiogram was obtained which was negative for dissection or large vessel occlusion * Blood work obtained in ER included CBC which showed normal WBC hemoglobin 15.2 platelet count of 268 * INR 1, PT 10.6 * Serum chemistry shows sodium 141 potassium 4.6 chloride 103B UN 34 creatinine 1.4 calcium 10.3 magnesium 1.8 REVIEW OF SYSTEMS: Dizziness, confusion CONSTITUTIONAL: No fever, no malaise, no fatigue. HEENT: No recent visual problems or hearing problems. Denied any sore throat. CARDIOVASCULAR: No chest pain, orthopnea, PND, no palpitations, no syncope. PULMONARY: No shortness of breath, no cough, no hemoptysis. GASTROINTESTINAL: No diarrhea, no nausea, no vomiting, no abdominal pain. NEUROLOGICAL: No headaches, no weakness, no numbness. HEMATOLOGICAL: Denies any bleeding or petechiae. GENITOURINARY: Denies any burning micturition, frequency, or urgency. MUSCULOSKELETAL/RHEUMATOLOGICAL: Denies any joint pain, swelling, or any muscle pain. ENDOCRINE: Denies any polyuria or polydipsia. PHYSICAL EXAMINATION: GENERAL: The patient is alert and oriented x3, dry mucous membrane HEENT: Pupils are round and equally reacting to light. EOMI. CARDIOVASCULAR: S1 and S2 present. No murmurs, rubs, or gallops. PULMONARY: Chest is clear to auscultation, no wheezing or crackles. ABDOMEN: Soft, nontender, nondistended, normoactive bowel sounds. No palpable organomegaly. MUSCULOSKELETAL: No joint swelling or deformity. EXTREMITIES: No cyanosis, clubbing, or pedal edema. NEUROLOGICAL: Gross neurological examination did not reveal any focal deficits. Motor strength is 5 x 5 bilateral upper and lower extremity SKIN: No rashes. Past Medical History Past Medical History: CVA/TIA, Diabetes Mellitus, GERD/Reflux, Hypertension, Osteoarthritis (OA), Pneumonia Additional Past Medical History / Comment(s): MULTIPLE TIA'S (7) - RIGHT SIDED WEAKNESS RESOLVED.- SLIGHT MEMORY IMPAIRMENT., VARICOSE VEINS, KIDNEY STONES, LICHEN PLANUS ON HIS LEGS, GARETH MARTINEZ.,DIABETES RESOLVED WITH WT LOSS., NOW HAS EPISODES OF HYPOGLYCEMIA., PINCHED NERVE NECK WITH PAIN IN NECK & SHOULDERS.,RECEIVING INJECTIONS FOR NECK PAIN, RIGHT ARM GOES NUMB AND A COUPLE FINGERS ARE NUMB., TORN RIGHT ROTATOR CUFF., BPH WITH UROLIFT PROCEDURE., PT HAS 2 METAL STENTS FROM HIS GUM TO SINUS CAVITY., ORAL LEUKOPLAKIA SURGERY., HX OF COLON POLYPS. History of Any Multi-Drug Resistant Organisms: None Reported Past Surgical History: Cholecystectomy Additional Past Surgical History / Comment(s): kidney stones removed, UROLIFT., DENTAL PROCEDURE WITH METAL STENTS FROM GUMS TO SINUS CAVITY., ORAL LEUKOPLAKIA SURGERY, . Past Anesthesia/Blood Transfusion Reactions: No Reported Reaction Additional Past Anesthesia/Blood Transfusion Reaction / Comment(s): HX OF PASSING OUT WITH STARTING IV Past Psychological History: Anxiety Smoking Status: Former smoker Past Alcohol Use History: Occasional Past Drug Use History: None Reported - Past Family History Mother Family Medical History: No Reported History Medications and Allergies Home Medications Medication Instructions Recorded Confirmed Type Losartan Potassium [Cozaar] 100 mg PO DAILY 06/27/18 07/30/23 History Cholecalciferol [Vitamin D3 (25 25 mcg PO DAILY 07/27/22 07/30/23 History Mcg = 1000 Iu)] Famotidine [Pepcid] 20 mg PO BID-W/MEALS 07/27/22 07/30/23 History LORazepam [Ativan] 1 mg PO BID PRN 07/27/22 07/30/23 History Meclizine [Antivert] 25 mg PO BID 07/27/22 07/30/23 History Natural Astaxanthin 6mg 1 cap PO Q48H 07/27/22 07/30/23 History Probiotic & Prebiotic Blend 1 cap PO DAILY 07/27/22 07/30/23 History Turmeric Root Extract [Turmeric 500 mg PO DAILY 07/27/22 07/30/23 History Curcumin] metFORMIN HCL ER [Glucophage XR] 250 mg PO BID 07/27/22 07/30/23 History Aloe Vera 200 mg PO BID 07/30/23 07/30/23 History Biotin 5,000 mcg PO DAILY 07/30/23 07/30/23 History Cyanocobalamin [Vitamin B-12] 250 mcg PO DAILY 07/30/23 07/30/23 History Melatonin 5 mg PO HS PRN 07/30/23 07/30/23 History Natural B Complex Supplement 1 tab PO DAILY 07/30/23 07/30/23 History Sildenafil Citrate [Sildenafil] 20 - 100 mg PO DAILY PRN 07/30/23 07/30/23 History Truevision With Lutein Eye 1 tab PO Q48H 07/30/23 07/30/23 History Supplement hydrALAZINE HCL [Apresoline] 50 mg PO BID 07/30/23 07/30/23 History hydroCHLOROthiazide [Hydrodiuril] 25 mg PO DAILY 07/30/23 07/30/23 History Allergies Allergy/AdvReac Type Severity Reaction Status Date / Time lisinopril Allergy Unknown BODY Verified 07/30/23 12:57 ACHES, EXHAUSTION, PAIN amlodipine Allergy SEVERE LEG Verified 07/30/23 12:57 PAIN, "MESSES UP HIS THINKING" ciprofloxacin [From Cipro] AdvReac Unknown SLURRED Verified 07/30/23 12:57 SPEECH ezetimibe [From Zetia] AdvReac Unknown BODY ACHES Verified 07/30/23 12:57 ofloxacin [From Floxin] AdvReac Unknown SLURRED Verified 07/30/23 12:57 SPEECH hydrocodone [From [place]] AdvReac Stomach Verified 07/30/23 12:57 upset, constipation moxifloxacin HCl AdvReac TREMBLE , Verified 07/30/23 12:57 [From Avelox] LIGHTHEADED, WEAK fluoroquinolones Allergy Itching Uncoded 07/30/23 09:29 Physical Exam Vitals: Vital Signs Temp Pulse Resp BP Pulse Ox 07/30/23 11:39 52 L 18 159/90 99 07/30/23 09:26 98.2 F 54 L 20 156/78 99 Intake and Output 07/29/23 07/30/23 07/30/23 22:59 06:59 14:59 Other: Weight 84.822 kg Results CBC & Chem 7: 07/30/23 09:30 07/30/23 09:30 Labs: Abnormal Lab Results - Last 24 Hours (Table) 07/30/23 07/30/23 Range/Units 09:30 09:30 MCV 101.2 H (80.0-100.0) fL MCH 35.2 H (25.0-35.0) pg BUN 34 H (9-20) mg/dL Creatinine 1.40 H (0.66-1.25) mg/dL Glucose 151 H (74-99) mg/dL Calcium 10.3 H (8.4-10.2) mg/dL Assessment and Plan Assessment: Assessment and plan * History of TIA with persistent dizziness rule out CVA * Diabetes mellitus type 2 * History of positional vertigo * Hypertension * Acute kidney injury * In regards to dizziness, continue meclizine, neurology consulted, CT head, CT angina head and neck reviewed * In regards to diabetes mellitus, Accu-Cheks before meals at bedtime, metformin on hold monitor for hypoglycemia * In regards to history of positional vertigo continue meclizine * In regards to daily, continue fluid resuscitation, losartan on hold * CODE STATUS is full code Time with Patient: Greater than 30
[2023-07-30] MEDS: MECLIZINE 25 MG TAB PO SCH ×2 (15:06→21:02)
[2023-07-30 18:13] LABS: Glucose,Whole Blood 118 mg/dL (70-110)
[2023-07-30] MEDS: INSULIN ASPART (NovoLOG) 100 UNIT/ML VIAL SQ SCH ×2 (18:13→21:45)
[2023-07-30] MEDS: FAMOTIDINE 20 MG TAB PO SCH (18:14)
--- NOTE | 2023-07-30 20:16 | P.CNNES ---
History of Present Illness Consult date: 07/30/23 Requesting physician: Anne Mendez Reason for Consult: altered mental status, acute exacerbation of chronic vertigo, hx cva History of Present Illness: Patient is a 78-year-old male with long-standing history of intermittent vertigo, imbalance came to the hospital early this morning today at 9:18 AM for worsening vertigo. Patient states that he has history of balance problem for last 6 months, but has developed vertigo in the last couple days. The spinning occurs when he turns to the left while laying down. When he lays down straight ahead, he is fine. He is no dizziness rolling in the bed on the right side. Patient denies any hearing issues, tinnitus or middle ear diplopia, or any strokelike symptoms like slurred speech, facial droop focal weakness numbness or tingling. Patient has been seen by Dr. Topher Rogers on 11/15/2021 for similar concerns of peripheral vertigo. MRI of the brain was normal at that time. In his report it was also reported that patient had a similar episode about 1-2 years prior. Patient states that each time this episode lasts for about 1 week or less. Patient also has been seen by Dr. Newton about 2 months ago and was recommended meclizine. Patient says that he has been taking meclizine one pill a day for almost one to 2 years. In the last month or 2, he has been taking 2 pills a day for dizziness, spinning. In the last few days it has been worse. He wanted to take it 3 times a day, but he ended up in the hospital. Patient is not a good historian, often changes his statement. Vital signs arrival blood pressure 156/78, pulse rate 54, temperature 98.2. Blo od test shows normal CBC, with elevated MCV 101.2, PT/PTT is normal, basic metabolic panel is normal, creatinine 1.40, calcium 10.3, hepatic panel is normal troponin negative. Chest x-ray is normal, EKG shows sinus bradycardia. CT head showed no acute intracranial process. I personally reviewed CT head, agree with the findings. The visualized paranasal sinuses, and external auditory canals are completely clear. Patient stopped smoking 30 years ago. Review of Systems Unremarkable, except as mentioned in HPI. All other review of systems, noncontributory. Past Medical History Past Medical History: CVA/TIA, Diabetes Mellitus, GERD/Reflux, Hypertension, Osteoarthritis (OA), Pneumonia Additional Past Medical History / Comment(s): MULTIPLE TIA'S (7) - RIGHT SIDED WEAKNESS RESOLVED.- SLIGHT MEMORY IMPAIRMENT., VARICOSE VEINS, KIDNEY STONES, LICHEN PLANUS ON HIS LEGS, GARETH MARTINEZ.,DIABETES RESOLVED WITH WT LOSS., NOW HAS EPISODES OF HYPOGLYCEMIA., PINCHED NERVE NECK WITH PAIN IN NECK & SHOUL DERS.,RECEIVING INJECTIONS FOR NECK PAIN, RIGHT ARM GOES NUMB AND A COUPLE FINGERS ARE NUMB., TORN RIGHT ROTATOR CUFF., BPH WITH UROLIFT PROCEDURE., PT HAS 2 METAL STENTS FROM HIS GUM TO SINUS CAVITY., ORAL LEUKOPLAKIA SURGERY., HX OF COLON POLYPS. History of Any Multi-Drug Resistant Organisms: None Reported Past Surgical History: Cholecystectomy Additional Past Surgical History / Comment(s): kidney stones removed, UROLIFT., DENTAL PROCEDURE WITH METAL STENTS FROM GUMS TO SINUS CAVITY., ORAL LEUKOPLAKIA SURGERY, . Past Anesthesia/Blood Transfusion Reactions: No Reported Reaction Additional Past Anesthesia/Blood Transfusion Reaction / Comment(s): HX OF PASSING OUT WITH STARTING IV Past Psychological History: Anxiety Additional Psychological History / Comment(s): Pt resides with his spouse. Smoking Status: Former smoker Past Alcohol Use History: Occasional Additional Past Alcohol Use History / Comment(s): Pt started smoking approximately 1961 and quit approximately 1998 Past Drug Use History: None Reported - Past Family History Mother Family Medical History: No Reported History Medications and Allergies Home Medications Medication Instructions Recorded Confirmed Type Losartan Potassium [Cozaar] 100 mg PO DAILY 06/27/18 07/30/23 History Cholecalciferol [Vitamin D3 (25 25 mcg PO DAILY 07/27/22 07/30/23 History Mcg = 1000 Iu)] Famotidine [Pepcid] 20 mg PO BID-W/MEALS 07/27/22 07/30/23 History LORazepam [Ativan] 1 mg PO BID PRN 07/27/22 07/30/23 History Meclizine [Antivert] 25 mg PO BID 07/27/22 07/30/23 History Natural Astaxanthin 6mg 1 cap PO Q48H 07/27/22 07/30/23 History Probiotic & Prebiotic Blend 1 cap PO DAILY 07/27/22 07/30/23 History Turmeric Root Extract [Turmeric 500 mg PO DAILY 07/27/22 07/30/23 History Curcumin] metFORMIN HCL ER [Glucophage XR] 250 mg PO BID 07/27/22 07/30/23 History Aloe Vera 200 mg PO BID 07/30/23 07/30/23 History Biotin 5,000 mcg PO DAILY 07/30/23 07/30/23 History Cyanocobalamin [Vitamin B-12] 250 mcg PO DAILY 07/30/23 07/30/23 History Melatonin 5 mg PO HS PRN 07/30/23 07/30/23 History Natural B Complex Supplement 1 tab PO DAILY 07/30/23 07/30/23 History Sildenafil Citrate [Sildenafil] 20 - 100 mg PO DAILY PRN 07/30/23 07/30/23 History Truevision With Lutein Eye 1 tab PO Q48H 07/30/23 07/30/23 History Supplement hydrALAZINE HCL [Apresoline] 50 mg PO BID 07/30/23 07/30/23 History hydroCHLOROthiazide [Hydrodiuril] 25 mg PO DAILY 07/30/23 07/30/23 History Allergies Allergy/AdvReac Type Severity Reaction Status Date / Time lisinopril Allergy Unknown BODY Verified 07/30/23 12:57 ACHES, EXHAUSTION, PAIN amlodipine Allergy SEVERE LEG Verified 07/30/23 12:57 PAIN, "MESSES UP HIS THINKING" ciprofloxacin [From Cipro] AdvReac Unknown SLURRED Verified 07/30/23 12:57 SPEECH ezetimibe [From Zetia] AdvReac Unknown BODY ACHES Verified 07/30/23 12:57 ofloxacin [From Floxin] AdvReac Unknown SLURRED Verified 07/30/23 12:57 SPEECH hydrocodone [From [place]] AdvReac Stomach Verified 07/30/23 12:57 upset, constipation moxifloxacin HCl AdvReac TREMBLE , Verified 07/30/23 12:57 [From Avelox] LIGHTHEADED, WEAK fluoroquinolones Allergy Itching Uncoded 07/30/23 09:29 Physical Examination - Vital Signs Vital Signs: Vital Signs Temp Pulse Pulse Resp BP BP Pulse Ox 07/30/23 18:36 172/95 07/30/23 18:19 97.4 F L 68 20 183/92 98 07/30/23 16:00 57 L 18 123/67 98 07/30/23 15:00 58 L 18 152/71 98 07/30/23 13:00 58 L 18 159/90 98 07/30/23 11:39 52 L 18 159/90 99 07/30/23 09:26 98.2 F 54 L 20 156/78 99 Intake and Output 07/30/23 07/30/23 07/30/23 06:59 14:59 22:59 Other: Weight 84.822 kg 84.822 kg Patient is an elderly male, very pleasant, in no acute distress. Patient is alert awake oriented to time place and person. Speech and language functions are normal. Patient can name and repeat very well. No aphasia or dysarthria. Attention, concentration and fund of knowledge is adequate. On cranial nerve examination, pupils are equal, round and reacting to light, visual perkins are full on confrontation, with no neglect on double simultaneous stimulation. Extraocular muscles are intact with no nystagmus. Face is symmetric, tongue protrudes to the midline. Palatal elevation and sensation normal, hearing is normal for routine conversation, but for finger rubbing, it is moderately to severely decreased bilaterally, left slightly worse. His shoulder shrug normal, facial sensation normal. On muscle strength testing, there is no pronator drift and the strength is n ormal in arms and legs distally and proximally. Deep tendon reflexes are symmetric and trace all over and plantars downgoing. Sensory to touch is equal with no neglect on double simultaneous stimulation. Cerebellar function showed no ataxia for dvinqk-in-oyee testing. No dysdiadochokinesia. No ataxia for vohs-lc-lyei testing on either side. Tone and bulk of muscles normal. Gait: Patient walked, was slightly unsteady. However he did walk fairly well. On general examination, there is no carotid bruit or murmur, S1-S2 audible. Chest is clear on consultation. Abdomen is soft nontender. No organomegaly, bowel sounds present. Peripheral pulses are present. No peripheral edema. Results - Laboratory Findings CBC and BMP: 07/30/23 09:30 07/30/23 09:30 Abnormal Lab Findings: Abnormal Labs 07/30/23 07/30/23 07/30/23 09:30 09:30 18:11 MCV 101.2 H MCH 35.2 H BUN 34 H Creatinine 1.40 H Glucose 151 H POC Glucose (mg/dL) 118 H Calcium 10.3 H Assessment and Plan Assessment: * Chronic recurrent vertigo, likely due to benign peripheral positional vertigo, mainly involving the left ear. Patient denies any hearing loss, ringing in the ears, therefore doubt Mnire's disease. Examination does reveal si gnificant decreased hearing for finger rubbing bilaterally, left more than right. No excessive cerumen. * Hypertension * Diabetes * Macrocytosis Plan: * Continue Antivert 25 mg 3 times a day. * Recommend vestibular rehabilitation for possible BPPV. * If the symptoms persist, would recommend follow-up with ENT to rule out Mnire's disease. * Patient has macrocytosis. Patient started on B12 replacement. We will check B12, folate. * Neurologically clear for discharge. Dr. Patten will be available for any neurological concerns over the weekend. * Thank you for the consult.
[2023-07-30] MEDS ORDERED: ONDANSETRON 4 MG/2 ML VIAL IVP PRN (20:46)
[2023-07-30] MEDS ORDERED: NON FORMULARY DRUG (Metformin Hcl Er 500 MG Tab.Er.24h) PO SCH (21:00)
[2023-07-30] MEDS ORDERED: MECLIZINE 25 MG TAB PO SCH (21:00)
[2023-07-30] MEDS: hydrALAZINE HCL 50 MG TAB PO SCH (21:02)
[2023-07-30 21:19] LABS: Glucose,Whole Blood 169 mg/dL (70-110)
[2023-07-31] MEDS: FAMOTIDINE 20 MG TAB PO SCH (05:47)
[2023-07-31 06:36] LABS: Glucose,Whole Blood 155 mg/dL (70-110)
[2023-07-31] MEDS: INSULIN ASPART (NovoLOG) 100 UNIT/ML VIAL SQ SCH (06:39)
[2023-07-31 08:12] VITALS: BP 152/83; PULSE 53; RESP 18; TEMP 97.7
[2023-07-31] MEDS ORDERED: NON FORMULARY DRUG (Losartan Potassium [Cozaar] 100 MG Tablet) PO SCH (09:00)
[2023-07-31] MEDS ORDERED: CYANOCOBALAMIN 500 MCG TAB PO SCH (09:00)
[2023-07-31] MEDS ORDERED: hydroCHLOROthiazide 25 MG TAB PO SCH (09:00)
[2023-07-31] MEDS: CHOLECALCIFEROL 25 MCG (1000 IU) TABLET PO SCH (09:08)
[2023-07-31] MEDS: MECLIZINE 25 MG TAB PO SCH (09:08)
[2023-07-31] MEDS: hydrALAZINE HCL 50 MG TAB PO SCH (09:08)
[2023-07-31 09:33] LABS: HCT 44.1 % (39.6-50.0); HGB 15.3 g/dL (13.0-17.0); MCHC 34.7 g/dL (32.0-37.0); MCV 100.9 FL (80.0-97.0); NRBC Per 100 WBC 0 X 10*3/uL (0.00-0.01); Platelet Count 239 X 10*3/uL (140-440); RBC 4.37 X 10*6/uL (4.40-5.60); RDW 13.2 % (11.5-14.5); WBC 8.56 X 10*3/uL (4.50-10.00)
[2023-07-31 09:53] LABS: BUN/Creat Ratio 24.14 Ratio (12.00-20.00); Blood Urea Nitrogen 33.8 mg/dL (9.0-27.0); Calcium 10.2 mg/dL (8.7-10.3); Carbon Dioxide 26.8 mmol/L (21.6-31.8); Chloride 102 mmol/L (96-109); Chol/HDL Ratio 4.75 Ratio; Glucose 148 mg/dL (70-110); LDL Cholesterol,Calculated 135.7 mg/dL (0.0-131.0); Potassium 4.7 mmol/L (3.5-5.5); Sodium 140 mmol/L (135-145)
[2023-07-31] MEDS ORDERED: SODIUM CHLORIDE 0.9% 500 ML 500 ML IV ONE (10:16)
--- NOTE | 2023-07-31 13:04 | P.DS ---
Providers Date of admission: 07/30/23 13:22 Expected date of discharge: 07/31/23 Attending physician: Fareed Perez MD Consults: 07/30/23 13:25 Consult Physician Urgent Consulting Provider: Jim Robison Consult Reason/Comments: altered mental status, acute exacerbation of chronic vertigo, hx cva Do you want consulting provider notified?: Yes Primary care physician: Marshall Robertson [facility] Course: * 78-year-old gentleman with past medical history significant for nonobstructive coronary artery disease, history of multiple TIAs, dyslipidemia, diabetes mellitus type 2, hypertension, BPH, former tobacco use presents to the emergency department with the complaint of worsening dizziness. Patient said his symptoms have been getting worse for the last 48 hours. Patient states the symptoms were intermittent for the last 2 weeks however he decided to seek medical attention due to worsening symptoms especially in 48 hours * Workup in ER included CT head which was negative for acute intracranial process * CT angiogram was obtained which was negative for dissection or large vessel occlusion * Blood work obtained in ER included CBC which showed normal WBC hemoglobin 15.2 platelet count of 268 * INR 1, PT 10.6 * Serum chemistry shows sodium 141 potassium 4.6 chloride 103B UN 34 creatinine 1.4 calcium 10.3 magnesium 1.8 * 07/31/2023:Patient was admitted as observation on medical floor with consultation from neurology, patient symptoms were considered secondary to vertigo, patient was also noted to have acute kidney injury and was treated with IV fluids. Follow up renal function was ordered, before a final plan could be coordinated patient left AGAINST MEDICAL ADVICE Assessment: Assessment and plan * History of TIA with persistent dizziness rule out CVA * Diabetes mellitus type 2 * History of positional vertigo * Hypertension * Acute kidney injury Patient was treated with IV fluids, neurology was consulted, treated with Antivert, follow-up renal profile ordered Patient left AGAINST MEDICAL ADVICE prior to discharge planning could be formulated Patient eloped, before been seen Patient Condition at Discharge: Undetermined Plan - Discharge Summary New Discharge Prescriptions: No Action Losartan Potassium [Cozaar] 100 mg PO DAILY Famotidine [Pepcid] 20 mg PO BID-W/MEALS metFORMIN HCL ER [Glucophage XR] 250 mg PO BID Meclizine [Antivert] 25 mg PO BID Probiotic & Prebiotic Blend 1 cap PO DAILY LORazepam [Ativan] 1 mg PO BID PRN PRN Reason: Anxiety Turmeric Root Extract [Turmeric Curcumin] 500 mg PO DAILY Natural B Complex Supplement 1 tab PO DAILY Truevision With Lutein Eye Supplement 1 tab PO Q48H Biotin 5,000 mcg PO DAILY hydroCHLOROthiazide [Hydrodiuril] 25 mg PO DAILY Sildenafil Citrate [Sildenafil] 20 - 100 mg PO DAILY PRN PRN Reason: E.D. Natural Astaxanthin 6mg 1 cap PO Q48H Cholecalciferol [Vitamin D3 (25 Mcg = 1000 Iu)] 25 mcg PO DAILY Aloe Vera 200 mg PO BID Cyanocobalamin [Vitamin B-12] 250 mcg PO DAILY hydrALAZINE HCL [Apresoline] 50 mg PO BID Melatonin 5 mg PO HS PRN PRN Reason: SLEEP Discharge Medication List Losartan Potassium [Cozaar] 100 mg PO DAILY 06/27/18 [History] Cholecalciferol [Vitamin D3 (25 Mcg = 1000 Iu)] 25 mcg PO DAILY 07/27/22 [History] Famotidine [Pepcid] 20 mg PO BID-W/MEALS 07/27/22 [History] LORazepam [Ativan] 1 mg PO BID PRN 07/27/22 [History] Meclizine [Antivert] 25 mg PO BID 07/27/22 [History] Natural Astaxanthin 6mg 1 cap PO Q48H 07/27/22 [History] Probiotic & Prebiotic Blend 1 cap PO DAILY 07/27/22 [History] Turmeric Root Extract [Turmeric Curcumin] 500 mg PO DAILY 07/27/22 [History] metFORMIN HCL ER [Glucophage XR] 250 mg PO BID 07/27/22 [History] Aloe Vera 200 mg PO BID 07/30/23 [History] Biotin 5,000 mcg PO DAILY 07/30/23 [History] Cyanocobalamin [Vitamin B-12] 250 mcg PO DAILY 07/30/23 [History] Melatonin 5 mg PO HS PRN 07/30/23 [History] Natural B Complex Supplement 1 tab PO DAILY 07/30/23 [History] Sildenafil Citrate [Sildenafil] 20 - 100 mg PO DAILY PRN 07/30/23 [History] Truevision With Lutein Eye Supplement 1 tab PO Q48H 07/30/23 [History] hydrALAZINE HCL [Apresoline] 50 mg PO BID 07/30/23 [History] hydroCHLOROthiazide [Hydrodiuril] 25 mg PO DAILY 07/30/23 [History] Follow up Appointment(s)/Referral(s): Marshall Robertson MD [Primary Care Provider] - 1-2 days Discharge Disposition: LEFT AGAINST MEDICAL ADVICE
== END 2023-07-31 10:30 | disposition left against medical advice (07) ==
LOC: EC 09:18 → 6NMEDSUR 13:22
PROVIDERS: ADMIT Internal Medicine; ATTEND Internal Medicine
DX: R42 Dizziness and giddiness (principal); R41.3 Other amnesia; E11.9 Type 2 diabetes mellitus without complications; D75.89 Other specified diseases of blood and blood-forming organs; N17.9 Acute kidney failure, unspecified; I10 Essential (primary) hypertension; K21.9 Gastro-esophageal reflux disease without esophagitis; F41.9 Anxiety disorder, unspecified; N40.0 Benign prostatic hyperplasia without lower urinary tract symptoms; I25.10 Atherosclerotic heart disease of native coronary artery without angina pectoris; E78.5 Hyperlipidemia, unspecified; I69.351 Hemiplegia and hemiparesis following cerebral infarction affecting right dominant side; Z87.891 Personal history of nicotine dependence; Z79.82 Long term (current) use of aspirin; Z79.84 Long term (current) use of oral hypoglycemic drugs; Z79.899 Other long term (current) drug therapy; Z88.1 Allergy status to other antibiotic agents; Z88.5 Allergy status to narcotic agent; Z53.29 Procedure and treatment not carried out because of patient's decision for other reasons
CPT/HCPCS: 96372 ×2; 96375 ×2; 96365; 96366; 99285; 36415; 93005; 97162; 80061; 80053; 80048; 82607; 82746; 83735; 84484; 85025; 85027; 85610; 85730; 83036; 71046; 70496; 70450; 70498; G0378 ×2; J3360; J2405; J3475; Q9967

== ENCOUNTER → 2023-08-31 | Outpatient (CLI) | payer MEDICARE ==
--- NOTE | 2023-09-01 06:52 | MR ---
EXAMINATION TYPE: MR MRCP DATE OF EXAM: 08/31/2023 COMPARISON: Prior MRCP August 13, 2022 and older studies. HISTORY: F/u pancreatic cyst Standard multiplanar, multisequence MRI departmental protocol Multiplanar, multisequence images of the abdomen were acquired without contrast. Diffusion weighted i maging was performed. Thin and thick slice MRCP imaging is performed on MRI. FINDINGS: Liver/pancreas/biliary system: Gallbladder remains surgically absent. Liver remains normal in size wi th subcentimeter T2 hyperintense lesion in the left hepatic lobe coronal image 19 redemonstrated favo r a benign thin-walled cyst. Pancreas remains normal in size. In the pancreatic head and uncinate pro cess there are is redemonstration of cluster of thin-walled cysts measuring in total approximately 3. 5 cm craniocaudal dimension by 2.5 cm transversely coronal image 22. No biliary dilatation is seen. M ain pancreatic duct passes immediately anterior to the cluster of cysts or cystic lesions. No definit lucas direct communication identified. Main pancreatic duct measures 6 mm near the ampulla otherwise is not dilated distal to the cluster of cysts. No significant change from prior study. Other: Some cortical thinning with a few thin-walled cysts scattered throughout both kidneys is redem onstrated consistent with product of chronic medical renal disease. No abnormal bowel dilatation. No intra-abdominal ascites. No AAA. Osseous structures are intact. Spleen and both adrenal glands remain within normal limits. IMPRESSION: Stable pancreatic head cluster of cysts or cystic lesion as detailed above. No biliary di latation is evident.
== END | disposition home or self-care (01) ==
LOC: RADMRIMAIN 07:00
PROVIDERS: ATTEND Internal Medicine Gastroenterology
DX: K86.2 Cyst of pancreas (principal)
CPT/HCPCS: 74181

== ENCOUNTER 2024-06-02 22:20 | Observation (INO) | payer MEDICARE ==
[2024-06-02 23:36] LABS: Basophils % (A) 1 %; Eosinophils # (A) 0.2 k/uL (0-0.7); Eosinophils % (A) 2 %; HCT 41.8 % (39.0-53.0); HGB 14.3 gm/dL (13.0-17.5); Lymphocytes # (A) 1.5 k/uL (1.0-4.8); Lymphocytes % (A) 18 %; MCHC 34.2 g/dL (31.0-37.0); MCV 102.2 fL (80.0-100.0); Macrocytosis Slight; Mean Platelet Volume 7.8; Monocytes # (A) 0.5 k/uL (0-1.0); Monocytes % (A) 5 %; Neutrophils % (A) 72 %; Platelet Count 232 k/uL (150-450); RBC 4.09 m/uL (4.30-5.90); RDW 12.7 % (11.5-15.5); WBC 8.3 k/uL (3.8-10.6)
[2024-06-02 23:50] LABS: Partial Thromboplastin Time 24.5 sec (22.0-30.0); Prothrombin Time 11.2 sec (10.0-12.5)
[2024-06-03] LABS: ALT 20 U/L (4-49); AST 27 U/L (17-59); African American GFR (CKD) 78 (>60 ml/min/1.73 sqM); Albumin 4.2 g/dL (3.5-5.0); Alkaline Phosphatase 71 U/L (38-126); Anion Gap 9 mmol/L; Blood Urea Nitrogen 28 mg/dL (9-20); Calcium 9.4 mg/dL (8.4-10.2); Carbon Dioxide 19 mmol/L (22-30); Chloride 108 mmol/L (98-107); Glucose 166 mg/dL (74-99); Magnesium 1.6 mg/dL (1.6-2.3); Non-African American GFR(CKD) 68 (>60 ml/min/1.73 sqM); Potassium 4.4 mmol/L (3.5-5.1); Sodium 136 mmol/L (137-145); Total Bilirubin 0.7 mg/dL (0.2-1.3); Total Protein 6.6 g/dL (6.3-8.2)
[2024-06-03 00:08] LABS: NT-Pro-B-Type Natriuretic Pept 210 pg/mL
--- NOTE | 2024-06-03 01:09 | CT ---
EXAM: CT Head Without Intravenous Contrast CLINICAL HISTORY: ITS.REASON CT Reason: nystagmus, vertigo, hx cva TECHNIQUE: Axial computed tomography images of the head/brain without intravenous contrast. CTDI is 49.2 mGy and DLP is 1183.4 mGy-cm. This CT exam was performed using one or more of the following dose reduction techniques: automated exposure control, adjustment of the mA and/or kV according to patient size, and/or use of iterative reconstruction technique. COMPARISON: CT Head dated 07/30/23 FINDINGS: Brain: Mild volume loss with prominent ventricles and sulci. Mild periventricular white matter hypoattenuation likely reflects chronic small vessel disease. No hemorrhage. Ventricles: See above. Bones/joints: Unremarkable. No acute fracture. Soft tissues: Unremarkable. Sinuses: Unremarkable as visualized. No acute sinusitis. Mastoid air cells: Unremarkable as visualized. No mastoid effusion. IMPRESSION: No acute findings in the head/brain.
[2024-06-03] MEDS: ONDANSETRON 4 MG/2 ML VIAL IVP STA (01:40)
--- NOTE | 2024-06-03 01:53 | XR ---
EXAM: XR Chest, 2 Views CLINICAL HISTORY: ITS.REASON XR Reason: Chest Pain TECHNIQUE: Frontal and lateral views of the chest. COMPARISON: XR Chest dated 07/30/23 FINDINGS: Lungs: Low lung volumes. No consolidation. Pleural space: Unremarkable. No pneumothorax. Heart: Unremarkable. No cardiomegaly. Mediastinum: Unremarkable. Normal mediastinal contour. Bones/joints: Degenerative changes of the spine. No acute fracture. IMPRESSION: Low lung volumes. No evidence of acute cardiopulmonary disease.
--- NOTE | 2024-06-03 02:00 | ED ---
Chest Pain HPI - General Chief Complaint: Chest Pain Stated Complaint: Chest Pain,Sob Time Seen by Provider: 06/02/24 22:30 Source: patient Mode of arrival: ambulatory Limitations: no limitations - History of Present Illness Initial Comments: 79-year-old male presents emergency department reporting chest pain and dizziness. Symptoms started approximately 30 minutes ago. He reports that he went to stand up when he had sudden onset of room spinning. He could not keep his balance to ambulate. He laid back down. He was reporting to his that he was having some chest pain and difficulty breathing. This is what prompted his trip to the emergency department. The room spinning sensation is worse with head movement. He denies any lateralizing weakness. Does admit to a headache with blurred vision. 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 He has history of hypertension. Denies stent placement. No fevers ch ills or cough. No other alleviating, precipitating or modifying factors - Related Data Home Medications Medication Instructions Recorded Confirmed Losartan Potassium [Cozaar] 100 mg PO DAILY 06/27/18 06/03/24 LORazepam [Ativan] 1 mg PO BID PRN 07/27/22 06/03/24 hydrALAZINE HCL [Apresoline] 50 mg PO BID 07/30/23 06/03/24 hydroCHLOROthiazide [Hydrodiuril] 25 mg PO DAILY 07/30/23 06/03/24 Escitalopram [Lexapro] 10 mg PO DAILY 06/03/24 06/03/24 Meclizine [Antivert] 25 mg PO BID 06/03/24 06/03/24 Metoprolol Succinate (ER) [Toprol 25 mg PO DAILY 06/03/24 06/03/24 Xl] Sildenafil Citrate 100 mg PO DAILY PRN 06/03/24 06/03/24 Allergies Allergy/AdvReac Type Severity Reaction Status Date / Time lisinopril Allergy Unknown BODY Verified 06/03/24 10:00 ACHES, EXHAUSTION, PAIN amlodipine Allergy SEVERE LEG Verified 06/03/24 10:00 PAIN, "MESSES UP HIS THINKING" ciprofloxacin [From Cipro] AdvReac Unknown SLURRED Verified 06/03/24 10:00 SPEECH ezetimibe [From Zetia] AdvReac Unknown BODY ACHES Verified 06/03/24 10:00 ofloxacin [From Floxin] AdvReac Unknown SLURRED Verified 06/03/24 10:00 SPEECH hydrocodone [From [place]] AdvReac Stomach Verified 06/03/24 10:00 upset, constipation moxifloxacin HCl AdvReac TREMBLE , Verified 06/03/24 10:00 [From Avelox] LIGHTHEADED, WEAK fluoroquinolones Allergy Itching Uncoded 06/03/24 10:00 Review of Systems ROS Statement: Those systems with pertinent positive or pertinent negative responses have been documented in the HPI. ROS Other: All systems not noted in ROS Statement are negative. Past Medical History Past Medical History: CVA/TIA, Diabetes Mellitus, GERD/Reflux, Hypertension, Osteoarthritis (OA), Pneumonia Additional Past Medical History / Comment(s): MULTIPLE TIA'S (7) - RIGHT SIDED WEAKNESS RESOLVED.- SLIGHT MEMORY IMPAIRMENT., VARICOSE VEINS, KIDNEY STONES, LICHEN PLANUS ON HIS LEGS, GARETH MARTINEZ.,DIABETES RESOLVED WITH WT LOSS., NOW HAS EPISODES OF HYPOGLYCEMIA., PINCHED NERVE NECK WITH PAIN IN NECK & SHOULDERS.,RECEIVING INJECTIONS FOR NECK PAIN, RIGHT ARM GOES NUMB AND A COUPLE FINGERS ARE NUMB., TORN RIGHT ROTATOR CUFF., BPH WITH UROLIFT PROCEDURE., PT HAS 2 METAL STENTS FROM HIS GUM TO SINUS CAVITY., ORAL LEUKOPLAKIA SURGERY., HX OF COLON POLYPS. History of Any Multi-Drug Resistant Organisms: None Reported Past Surgical History: Cholecystectomy Additional Past Surgical History / Comment(s): kidney stones removed, UROLIFT., DENTAL PROCEDURE WITH METAL STENTS FROM GUMS TO SINUS CAVITY., ORAL LEUKOPLAKIA SURGERY, . Past Anesthesia/Blood Transfusion Reactions: No Reported Reaction Additional Past Anesthesia/Blood Transfusion Reaction / Comment(s): HX OF PASSING OUT WITH STARTING IV Past Psychological History: Anxiety Smoking Status: Former smoker Past Alcohol Use History: Occasional Past Drug Use History: None Reported - Past Family History Mother Family Medical History: No Reported History General Exam Limitations: no limitations General appearance: alert, in no apparent distress Head exam: Present: atraumatic, normocephalic, normal inspection Eye exam: Present: PERRL, EOMI, nystagmus (Horizontal, bilateral). Absent: scleral icterus, conjunctival injection, periorbital swelling ENT exam: Present: normal exam, mucous membranes moist Neck exam: Present: normal inspection. Absent: tenderness, meningismus, lymphadenopathy Respiratory exam: Present: normal lung sounds bilaterally. Absent: respiratory distress, wheezes, rales, rhonchi, stridor Cardiovascular Exam: Present: regular rate, normal rhythm, normal heart sounds. Absent: systolic murmur, diastolic murmur, rubs, gallop, clicks GI/Abdominal exam: Present: soft, normal bowel sounds. Absent: distended, tenderness, guarding, rebound, rigid Extremities exam: Present: normal inspection, full ROM, normal capillary refill. Absent: tenderness, pedal edema, joint swelling, calf tenderness Back exam: Present: normal inspection Neurological exam: Present: alert, oriented X3, CN II-XII intact Psychiatric exam: Present: normal affect, normal mood Skin exam: Present: warm, dry, intact, normal color. Absent: rash Course Vital Signs 06/02/24 06/03/24 06/03/24 22:21 01:50 03:10 Temperature 97.3 F L Pulse Rate 58 L 53 L 52 L Respiratory 18 17 17 Rate Blood Pressure 199/109 164/94 178/85 O2 Sat by Pulse 98 97 97 Oximetry Chest Pain MDM - MDM Was pt. sent in by a medical professional or institution (, PA, METEOROLOGIST LIAISON, urgent care, hospital, or snf...) When possible be specific @ -No Did you speak to anyone other than the patient for history (EMS, parent, family, police, friend...)? What history was obtained from this source @ -Spoke with for history Did you review nursing and triage notes (agree or disagree)? Why? @ -I reviewed and agree with nursing and triage notes Were old charts reviewed (outside hosp., previous admission, EMS record, old EKG, old radiological studies, urgent care reports/EKG's, snf records)? Report findings @ -No old charts were reviewed Differential Diagnosis (chest pain, altered mental status, abdominal pain women, abdominal pain men, vaginal bleeding, weakness, fever, dyspnea, syncope, headache, dizziness, GI bleed, back pain, seizure, CVA, palpatations, mental health, musculoskeletal)? @ -Differential Chest Pain: Stable Angina, Unstable Angina, STEMI, NSTEMI Aortic Dissection, Pneumothorax, Musculoskeletal, Esophageal Spasm GERD, Cholecystitis, Pancreatitis, Zoster, this is not meant to be an all-inclusive list. Differential Dizziness: Benign paroxysmal positional Vertigo, Meniere's disease, otitis media, acoustic neuroma, vertebrobasilar insufficiency, cerebellar stroke, encephalitis, hypovolemic, arrhythmia, coronary artery syndrome, anemia, this is not meant to be an all-inclusive list EKG interpreted by me (3pts min.). @ -Yes and demonstrates sinus bradycardia with a rate of 58. [place] interval 160. QRS 106. QTc of 395. No acute ST segment elevations. Inverted T wave in lead III X-rays interpreted by me (1pt min.). @ -Yes and demonstrates no acute process CT interpreted by me (1pt min.). @ -Yes and demonstrates no acute process U/S interpreted by me (1pt. min.). @ -None done What testing was considered but not performed or refused? (CT, X-rays, U/S, labs)? Why? @ -None What meds were considered but not given or refused? Why? @ -None Did you discuss the management of the patient with other professionals (professionals i.e. , PA, METEOROLOGIST LIAISON, lab, RT, psych nurse, social insurance specialist, paraprofessional education assistant, teacher, chief lending officer, registered nurse hh case manager)? Give summary @ -Spoke with Priscila from [facility] for admission Was smoking cessation discussed for >3mins.? @ -No Was critical care preformed (if so, how long)? @ -No Were there social determinants of health that impacted care today? How? (Homelessness, low income, unemployed, alcoholism, drug addiction, transportation, low edu. Level, literacy, decrease access to med. care, residential, rehab)? @ -No Was there de-escalation of care discussed even if they declined (Discuss DNR or withdrawal of care, Hospice)? DNR status @ -No What co-morbidities impacted this encounter? (DM, HTN, Smoking, COPD, CAD, Cancer, CVA, ARF, Chemo, Hep., AIDS, mental health diagnosis, sleep apnea, morbid obesity)? @ -CVA Was patient admitted / discharged? Hospital course, mention meds given and route, prescriptions, significant lab abnormalities, going to OR and other pertinent info. @ -Upon arrival patient seen and evaluated in room 16. Thorough history and physical exam was performed. IV access was established. Laboratory studies we re conducted. Chest x-ray was performed. Patient does have bilateral nystagmus. He is given a scopolamine patch. CT was performed which is negative. Patient continues to be symptomatic. Recommended admission for his chest pain and his vertigo. Patient was agreeable to this. Spoke with Priscila from [facility] who will admit the patient Undiagnosed new problem with uncertain prognosis? @ -No Drug Therapy requiring intensive monitoring for toxicity (Heparin, Nitro, Insulin, Cardizem)? @ -No Were any procedures done? @ -No Diagnosis/symptom? @ -Acute chest pain, acute vertigo Acute, or Chronic, or Acute on Chronic? @ -Acute Uncomplicated (without systemic symptoms) or Complicated (systemic symptoms)? @ -Complicated Side effects of treatment? @ -No Exacerbation, Progression, or Severe Exacerbation? @ -No Poses a threat to life or bodily function? How? (Chest pain, [place], [place], pneumonia, PE, COPD, DKA, ARF, appy, cholecystitis, CVA, Diverticulitis, Homicidal, Suicidal, threat to staff... and all critical care pts) @ -No Disposition Clinical Impression: Vertigo, Chest pain, Accelerated hypertension Disposition: ADMITTED IP TO THIS HOSP Condition: Stable Is patient prescribed a controlled substance at d/c from ED?: No Time of Disposition: 02:38 Decision to Admit Reason: Admit from EC
[2024-06-03] MEDS: MECLIZINE 12.5 MG TAB PO STA (02:07)
[2024-06-03] MEDS: SCOPOLAMINE 1 MG/72 HR PATCH TRANSDERM STA (02:13)
[2024-06-03] MEDS ORDERED: NALOXONE 0.4 MG/ML 1 ML VIAL IV PRN (02:48)
[2024-06-03] MEDS: METOCLOPRAMIDE 5 MG/ML 2 ML VIAL IVP PRN (04:40)
[2024-06-03] MEDS: HYDROmorphone 0.5 MG/0.5 ML SYRINGE IVP PRN (04:41)
[2024-06-03] MEDS: hydrALAZINE HCL 20 MG/ML 1 ML VIAL IVP PRN (04:41)
[2024-06-03 06:07] LABS: Glucose,Whole Blood 181 mg/dL (70-110)
[2024-06-03 11:48] LABS: Glucose,Whole Blood 153 mg/dL (70-110)
[2024-06-03] MEDS: MECLIZINE 25 MG TAB PO STA (13:41)
--- NOTE | 2024-06-03 13:53 | P.CRDCN ---
History of Present Illness Consult date: 06/03/24 Consult reason: chest pain Chief complaint: dizziness, CP History of present illness: History of present illness: Is a pleasant 79-year-old male with significant past medical CVA, diabetes, hypertension, vertigo who presented with complaints of dizziness and worsening shortness of breath. He does follow with Dr. Luong in the office. He does not smoke, drinks 2 beers a day. He is hard of hearing. He reports 3-4 days ago feeling dizzy and off balance and almost fell. Today the spinning sensation got worse and he was unable to walk therefore he presented to the hospital. He also has been having intermittent episodes of chest pain. He does also admit that his shortness of breath has been significantly worse over the past 2-3 weeks and he is unable to walk to the mailbox like he was previously without feeling winded. Reviewed: Troponin negative x 3, BNP 210, creatinine 1.06, potassium 4.5. Head CT with no acute findings. Chest x-ray with no acute findings. EKG shows sinus bradycardia, 58 bpm. He did have prior Cardiolite stress test 03/2022 that was reported normal. Prior echocardiogram from 03/2022 with normal EF and moderate mitral regurgitation. CTA head and neck from 07/2023 shows no significant stenosis. REVIEW OF SYSTEMS: No fever or chills. No cough or expectoration. No diaphoresis. Patient denies headache, blurred vision, double vision. Patient denies any stomach discomfort. No nausea, vomiting. No hematochezia. No hematemesis. Denies any black stools or blood in his stools. Denies dysuria or hematuria. No muscle weakness or numbness. No chest pain or pressure. Reports dizziness and shortness of breath. PHYSICAL EXAMINATION: This is a 79-year-old male in no apparent distress at the time of my examination. Hard of hearing. HEENT: Head is atraumatic, normocephalic. Pupils are equal, round. Sclerae anicteric. Conjunctivae are clear. Mucous membranes of the mouth are moist. Neck is supple. There is no jugular venous distention. No carotid bruit is heard. CHEST EXAMINATION: Lungs are clear to auscultation. No chest wall tenderness is noted on palpation or with deep breathing. HEART EXAMINATION: Heart regular rate and rhythm. S1, S2 heard. No murmurs, gallops or rub. ABDOMEN: Soft, nontender. Bowel sounds are heard. EXTREMITIES: 2+ peripheral pulses with no evidence of peripheral edema and no calf tenderness noted. NEUROLOGIC EXAMINATION: Patient is awake, alert and oriented x3. IMPRESSION AND PLAN: History of CVA Diabetes type 2 Hypertension Vertigo Dyspnea Moderate mitral regurgitation Chest pain PLAN: We will echocardiogram to evaluate heart function and structure. Check ortho VS. Monitor blood pressure. Recommend Neuro eval. Further recommendations pending clinical course. I am dictating on behalf of Dr. Jerman Dozier's history/physical and assessment/plan. Past Medical History Past Medical History: Coronary Artery Disease (CAD), CVA/TIA, Diabetes Mellitus, GERD/Reflux, Hypertension, Osteoarthritis (OA), Pneumonia Additional Past Medical History / Comment(s): MULTIPLE TIA'S (7) - RIGHT SIDED WEAKNESS RESOLVED.- SLIGHT MEMORY IMPAIRMENT., VARICOSE VEINS, KIDNEY STONES, LICHEN PLANUS ON HIS LEGS, GARETH MARTINEZ.,DIABETES RESOLVED WITH WT LOSS., NOW HAS EPISODES OF HYPOGLYCEMIA., PINCHED NERVE NECK WITH PAIN IN NECK & SHOULDERS.,RECEIVING INJECTIONS FOR NECK PAIN, RIGHT ARM GOES NUMB AND A COUPLE FINGERS ARE NUMB., TORN RIGHT ROTATOR CUFF., BPH WITH UROLIFT PROCEDURE., PT HAS 2 METAL STENTS FROM HIS GUM TO SINUS CAVITY., ORAL LEUKOPLAKIA SURGERY., HX OF COLON POLYPS. History of Any Multi-Drug Resistant Organisms: None Reported Past Surgical History: Cholecystectomy Additional Past Surgical History / Comment(s): kidney stones removed, UROLIFT., DENTAL PROCEDURE WITH METAL STENTS FROM GUMS TO SINUS CAVITY., ORAL LEUKOPLAKIA SURGERY. Past Anesthesia/Blood Transfusion Reactions: No Reported Reaction Additional Past Anesthesia/Blood Transfusion Reaction / Comment(s): HX OF PASSING OUT WITH STARTING IV Past Psychological History: Anxiety Additional Psychological History / Comment(s): Pt resides with his spouse. Smoking Status: Former smoker Past Alcohol Use History: Occasional Additional Past Alcohol Use History / Comment(s): Pt started smoking approximately 1961 and quit approximately 1998 Past Drug Use History: None Reported - Past Family History Mother Family Medical History: No Reported History Medications and Allergies Home Medications Medication Instructions Recorded Confirmed Type Losartan Potassium [Cozaar] 100 mg PO DAILY 06/27/18 06/03/24 History LORazepam [Ativan] 1 mg PO BID PRN 07/27/22 06/03/24 History hydrALAZINE HCL [Apresoline] 50 mg PO BID 07/30/23 06/03/24 History hydroCHLOROthiazide [Hydrodiuril] 25 mg PO DAILY 07/30/23 06/03/24 History Escitalopram [Lexapro] 10 mg PO DAILY 06/03/24 06/03/24 History Meclizine [Antivert] 25 mg PO BID 06/03/24 06/03/24 History Metoprolol Succinate (ER) [Toprol 25 mg PO DAILY 06/03/24 06/03/24 History Xl] Sildenafil Citrate 100 mg PO DAILY PRN 06/03/24 06/03/24 History Allergies Allergy/AdvReac Type Severity Reaction Status Date / Time lisinopril Allergy Unknown BODY Verified 06/03/24 10:00 ACHES, EXHAUSTION, PAIN amlodipine Allergy SEVERE LEG Verified 06/03/24 10:00 PAIN, "MESSES UP HIS THINKING" ciprofloxacin [From Cipro] AdvReac Unknown SLURRED Verified 06/03/24 10:00 SPEECH ezetimibe [From Zetia] AdvReac Unknown BODY ACHES Verified 06/03/24 10:00 ofloxacin [From Floxin] AdvReac Unknown SLURRED Verified 06/03/24 10:00 SPEECH hydrocodone [From [place]] AdvReac Stomach Verified 06/03/24 10:00 upset, constipation moxifloxacin HCl AdvReac TREMBLE , Verified 06/03/24 10:00 [From Avelox] LIGHTHEADED, WEAK fluoroquinolones Allergy Itching Uncoded 06/03/24 10:00 Physical Exam Vitals: Vital Signs Temp Pulse Pulse Resp BP BP Pulse Ox 06/03/24 08:24 98.0 F 65 20 158/79 95 06/03/24 05:56 60 18 158/82 97 06/03/24 03:35 97.5 F L 50 L 18 205/95 98 06/03/24 03:10 52 L 17 178/85 97 06/03/24 01:50 53 L 17 164/94 97 06/02/24 22:21 97.3 F L 58 L 18 199/109 98 Intake and Output 06/02/24 06/03/24 06/03/24 22:59 06:59 14:59 Other: # Voids 1 Weight 81.647 kg 93 kg Results 06/02/24 23:15 06/02/24 23:15 Cardiac Enzymes 06/02/24 06/02/24 06/03/24 Range/Units 23:15 23:15 04:06 AST 27 (17-59) U/L Troponin I <0.012 <0.012 (0.000-0.034) ng/mL 06/03/24 Range/Units 06:35 AST (17-59) U/L Troponin I <0.012 (0.000-0.034) ng/mL Coagulation 06/02/24 Range/Units 23:15 PT 11.2 (10.0-12.5) sec APTT 24.5 (22.0-30.0) sec CBC 06/02/24 Range/Units 23:15 WBC 8.3 (3.8-10.6) k/uL RBC 4.09 L (4.30-5.90) m/uL Hgb 14.3 (13.0-17.5) gm/dL Hct 41.8 (39.0-53.0) % Plt Count 232 (150-450) k/uL Comprehensive Metabolic Panel 06/02/24 Range/Units 23:15 Sodium 136 L (137-145) mmol/L Potassium 4.4 (3.5-5.1) mmol/L Chloride 108 H (98-107) mmol/L Carbon Dioxide 19 L (22-30) mmol/L BUN 28 H (9-20) mg/dL Creatinine 1.06 (0.66-1.25) mg/dL Glucose 166 H (74-99) mg/dL Calcium 9.4 (8.4-10.2) mg/dL AST 27 (17-59) U/L ALT 20 (4-49) U/L Alkaline Phosphatase 71 (38-126) U/L Total Protein 6.6 (6.3-8.2) g/dL Albumin 4.2 (3.5-5.0) g/dL Current Medications Generic Name Dose Route Start Last Admin Trade Name Freq PRN Reason Stop Dose Admin Hydralazine HCl 10 mg 06/03/24 04:22 06/03/24 04:41 Hydralazine Hcl 20 Mg/Ml 1 Ml Vial IVP 10 mg Q4HR PRN Administration Blood Pressure - High Hydromorphone HCl 0.5 mg 06/03/24 04:22 06/03/24 04:41 Hydromorphone 0.5 Mg/0.5 Ml Syringe IVP 0.5 mg Q6HR PRN Administration Pain Metoclopramide HCl 5 mg 06/03/24 04:23 06/03/24 04:40 Metoclopramide 5 Mg/Ml 2 Ml Vial IVP 5 mg Q6HR PRN Administration Nausea And Vomiting Naloxone HCl 0.2 mg 06/03/24 02:48 Naloxone 0.4 Mg/Ml 1 Ml Vial IV Q2M PRN Opioid Reversal Intake and Output 06/02/24 06/03/24 06/03/24 22:59 06:59 14:59 Other: # Voids 1 Weight 81.647 kg 93 kg 06/02/24 23:15 06/02/24 23:15
[2024-06-03] MEDS ORDERED: LORazepam 1 MG TAB PO PRN (14:08)
[2024-06-03] MEDS ORDERED: NON FORMULARY DRUG (Sildenafil Citrate [Sildenafil Citrate] 100 MG Tablet) PO PRN (14:08)
--- NOTE | 2024-06-03 14:15 | P.HPIM ---
History of Present Illness History of present illness; 79-year-old male with a past medical history of hypertension, diabetes, anxiety, GERD, and vertigo presents to the ED with dizziness and shortness of breath. Patient reports earlier this morning he got up from bed to go to the bathroom and found that the room was spinning and he was short of breath. Patient reports he has been cutting back on his vertigo medication and blood pressure medication recently, and has not been taking the prescribed doses. Patient reports when the symptoms started he tried taking his vertigo medication to resolve his symptoms, but did not have any success. At this point patient felt it was necessary to come to the emergency room. Initial lab work done in the ER showed WBC 8.3, hemoglobin 14.3, MCV 102.2, sodium 136, potassium 4.4, chloride 108, bicarb 19, creatinine 1.06, glucose 166, troponins less than 0.012, and BNP 210. EKG done in the ER showed heart rate of 58 bpm, no ST segment elevation or depression seen, no T-wave inversions seen. Left axis deviation, voltage criteria for LVH Chest x-ray done in the ER shows low lung volumes. No evidence of acute cardiopulmonary disease. CT head done showed no acute intracranial process Patient admitted to internal medicine service REVIEW OF SYSTEMS: CONSTITUTIONAL: No fever, no malaise, no fatigue. HEENT: No recent visual problems or hearing problems. Denied any sore throat. CARDIOVASCULAR: No chest pain, orthopnea, PND, no palpitations, no syncope. PULMONARY: Admits to shortness of breath, no cough, no hemoptysis. GASTROINTESTINAL: No diarrhea, no nausea, no vomiting, no abdominal pain. NEUROLOGICAL: No headaches, no weakness, no numbness. Admits to dizziness (feels like the room is spinning similar to his previous vertigo symptoms) HEMATOLOGICAL: Denies any bleeding or petechiae. GENITOURINARY: Denies any burning micturition, frequency, or urgency. MUSCULOSKELETAL/RHEUMATOLOGICAL: Denies any joint pain, swelling, or any muscle pain. ENDOCRINE: Denies any polyuria or polydipsia. The rest of the 14-point review of systems is negative. PHYSICAL EXAMINATION: GENERAL: The patient is alert and oriented x3, not in any acute distress. Well developed, well nourished. HEENT: Pupils are round and equally reacting to light. EOMI. No scleral icterus. No conjunctival pallor. Normocephalic, atraumatic. No pharyngeal erythema. No thyromegaly. CARDIOVASCULAR: S1 and S2 present. No murmurs, rubs, or gallops. PULMONARY: Chest is clear to auscultation, no wheezing or crackles. ABDOMEN: Soft, nontender, nondistended, normoactive bowel sounds. No palpable organomegaly. MUSCULOSKELETAL: No joint swelling or deformity. EXTREMITIES: No cyanosis, clubbing, or pedal edema. NEUROLOGICAL: Gross neurological examination did not reveal any focal deficits. SKIN: No rashes. Assessment:79-year-old male with a past medical history of hypertension, diabetes, anxiety, GERD, and vertigo presents to the ED with dizziness and shortness of breath. Plan: #Vertigo: History of diagnosed vertigo, patient has not been taking normal home dose. Restarted home meclizine 25 mg p.o. 3 times daily, gave 125 mg p.o[address] dose stat CT head showed no abnormalities Continue to monitor # Shortness of breath/chest discomfort: Troponins negative, BNP negative, EKG shows no abnormalities, CXR shows no abnormalities Cardiology on consult Echo ordered Continue to monitor #Metabolic acidosis: Bicarb 19 Ordered sodium bicarb p.o. tabs 650 mg twice daily Continue to monitor #Hypertension: Continued home meds #Anxiety: Continued home meds Dispo: Pending clinical course. If echo is normal and patient's dizziness becomes under control after restarting normal home dose of meclizine, patient can be discharged home. Ana Reina MD PGY1, FM Continue to monitor vital signs, monitor CBC, monitor CMP, continue telemetry monitoring Labs and medication were reviewed. Continue with symptomatic treatment. Resume home medication. Monitor labs and vitals. DVT and GI prophylaxis. Further recommendations as per clinical course of the patient Dictation was produced using [employer] dictation software. please excuse any grammatical, word or spelling errors. [place] confidentiality statement: "The information contained in this communication, including attachments, is confidential, may be privileged, and is intended only for the use of the named recipient(s). Unauthorized use, disclosure, forwarding or copying is strictly prohibited and may be unlawful. If you have received this communication in error, please notify me IMMEDIATELY at the phone number or pager listed above." Attestation I have seen and examined this patient with my resident , discussed the same with the resident/JULIA, and agree with the dictator's assessment and plan as written Dr. 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 History of Any Multi-Drug Resistant Organisms: None Reported Past Surgical History: Cholecystectomy Additional Past Surgical History / Comment(s): kidney stones removed, UROLIFT., DENTAL PROCEDURE WITH METAL STENTS FROM GUMS TO SINUS CAVITY., ORAL LEUKOPLAKIA SURGERY. Past Anesthesia/Blood Transfusion Reactions: No Reported Reaction Additional Past Anesthesia/Blood Transfusion Reaction / Comment(s): HX OF PASSING OUT WITH STARTING IV Past Psychological History: Anxiety Additional Psychological History / Comment(s): Pt resides with his spouse. Smoking Status: Former smoker Past Alcohol Use History: Occasional Additional Past Alcohol Use History / Comment(s): Pt started smoking approximately 1961 and quit approximately 1998 Past Drug Use History: None Reported - Past Family History Mother Family Medical History: No Reported History Medications and Allergies Home Medications Medication Instructions Recorded Confirmed Type Losartan Potassium [Cozaar] 100 mg PO DAILY 06/27/18 06/03/24 History LORazepam [Ativan] 1 mg PO BID PRN 07/27/22 06/03/24 History hydrALAZINE HCL [Apresoline] 50 mg PO BID 07/30/23 06/03/24 History hydroCHLOROthiazide [Hydrodiuril] 25 mg PO DAILY 07/30/23 06/03/24 History Escitalopram [Lexapro] 10 mg PO DAILY 06/03/24 06/03/24 History Meclizine [Antivert] 25 mg PO BID 06/03/24 06/03/24 History Metoprolol Succinate (ER) [Toprol 25 mg PO DAILY 06/03/24 06/03/24 History Xl] Sildenafil Citrate 100 mg PO DAILY PRN 06/03/24 06/03/24 History Allergies Allergy/AdvReac Type Severity Reaction Status Date / Time lisinopril Allergy Unknown BODY Verified 06/03/24 10:00 ACHES, EXHAUSTION, PAIN amlodipine Allergy SEVERE LEG Verified 06/03/24 10:00 PAIN, "MESSES UP HIS THINKING" ciprofloxacin [From Cipro] AdvReac Unknown SLURRED Verified 06/03/24 10:00 SPEECH ezetimibe [From Zetia] AdvReac Unknown BODY ACHES Verified 06/03/24 10:00 ofloxacin [From Floxin] AdvReac Unknown SLURRED Verified 06/03/24 10:00 SPEECH hydrocodone [From [place]] AdvReac Stomach Verified 06/03/24 10:00 upset, constipation moxifloxacin HCl AdvReac TREMBLE , Verified 06/03/24 10:00 [From Avelox] LIGHTHEADED, WEAK fluoroquinolones Allergy Itching Uncoded 06/03/24 10:00 Physical Exam Vitals: Vital Signs Temp Pulse Pulse Resp BP BP Pulse Ox 06/03/24 05:56 60 18 158/82 97 06/03/24 03:35 97.5 F L 50 L 18 205/95 98 06/03/24 03:10 52 L 17 178/85 97 06/03/24 01:50 53 L 17 164/94 97 06/02/24 22:21 97.3 F L 58 L 18 199/109 98 Intake and Output 06/02/24 06/03/24 06/03/24 22:59 06:59 14:59 Other: # Voids 1 Weight 81.647 kg 93 kg Results CBC & Chem 7: 06/04/24 05:49 06/04/24 05:49 Labs: Abnormal Lab Results - Last 24 Hours (Table) 06/02/24 06/02/24 06/03/24 Range/Units 23:15 23:15 06:05 RBC 4.09 L (4.30-5.90) m/uL MCV 102.2 H (80.0-100.0) fL Sodium 136 L (137-145) mmol/L Chloride 108 H (98-107) mmol/L Carbon Dioxide 19 L (22-30) mmol/L BUN 28 H (9-20) mg/dL Glucose 166 H (74-99) mg/dL POC Glucose (mg/dL) 181 H (70-110) mg/dL Thrombosis Risk Factor Assmnt - Choose All That Apply Any of the Below Risk Factors Present?: Yes Each Factor Represents 1 point: Obesity (BMI >25) Other Risk Factors: Yes Each Risk Factor Represents 3 Points: Age 75 years or older Thrombosis Risk Factor Assessment Total Risk Factor Score: 4 Thrombosis Risk Factor Assessment Level: Moderate Risk
--- NOTE | 2024-06-03 15:24 | CA ---
Transthoracic Echo Report Name: Luke Cisneros Age: 79 Gender: M : 1945 Exam Date: 06/03/2024 10:28 Exam Location: [facility] Ht (in): 71 Wt (lb): 205 Ordering Physician: Mitzy Wagner Attending/Referring Phys: Hides Inspector Opal Nuñez RDCS Procedure CPT: Indications: sob, dizzy, cp Cardiac Hx: Technical Quality: Fair Contrast 1: Total Dose (mL): Contrast 2: Total Dose (mL): MEASUREMENTS (Male / Female) Normal Values 2D ECHO LV Diastolic Diameter PLAX 5.1 cm 4.2 - 5.9 / 3.9 - 5.3 cm LV Systolic Diameter PLAX 4.0 cm IVS Diastolic Thickness 1.4 cm 0.6 - 1.0 / 0.6 - 0.9 cm LVPW Diastolic Thickness 1.5 cm 0.6 - 1.0 / 0.6 - 0.9 cm LV Relative Wall Thickness 0.6 RV Internal Dim ED PLAX 3.3 cm LVOT Diameter 2.6 cm LA Systolic Diameter LX 4.0 cm 3.0 - 4.0 / 2.7 - 3.8 cm LV Diastolic Volume MOD BP 76.8 cm??? 67 - 155 / 56 - 104 cm??? LV Systolic Volume MOD BP 31.9 cm??? - 58 / 19 - 49 cm??? LV Ejection Fraction MOD BP 58.4 % >= 55 % LV Cardiac Index MOD BP 1337.9 cm???/min???m??? LV Diastolic Volume MOD 4C 86.8 cm??? LV Systolic Volume MOD 4C 37.0 cm??? LV Ejection Fraction MOD 4C 57.4 % LV Cardiac Index MOD 4C 1487.8 cm???/min???m??? LV Diastolic Length 4C 7.7 cm LV Systolic Length 4C 6.5 cm LV Diastolic Volume MOD 2C 66.6 cm??? LV Systolic Volume MOD 2C 25.4 cm??? LV Ejection Fraction MOD 2C 61.8 % LV Cardiac Index MOD 2C 1229.6 cm???/min???m??? LV Diastolic Length 2C 8.0 cm LV Systolic Length 2C 5.6 cm LA Volume 91.5 cm??? 18 - 58 / 22 - 52 cm??? LA Volume Index 42.0 cm???/m??? 16 - 28 cm???/m??? M-MODE Aortic Root Diameter MM 3.6 cm AV Cusp Separation MM 1.4 cm DOPPLER AV Peak Velocity 187.0 cm/s AV Peak Gradient 14.0 mmHg AV Mean Velocity 132.5 cm/s AV Mean Gradient 7.8 mmHg AV Velocity Time Integral 42.1 cm LVOT Peak Velocity 108.3 cm/s LVOT Peak Gradient 4.7 mmHg LVOT Velocity Time Integral 32.9 cm LVOT Stroke Volume 169.7 cm??? LVOT Stroke Volume Index 79.6 ml/m??? LVOT Cardiac Index 5066.4 cm???/min???m??? AV Area Cont Eq vti 4.0 cm??? AV Area Cont Eq pk 3.0 cm??? MV Area PHT 2.2 cm??? Mitral E Point Velocity 69.5 cm/s Mitral A Point Velocity 86.2 cm/s Mitral E to A Ratio 0.8 MV Deceleration Time 341.1 ms TR Peak Velocity 241.7 cm/s TR Peak Gradient 23.4 mmHg Right Ventricular Systolic Press 28.4 mmHg FINDINGS Left Ventricle Left ventricular ejection fraction is estimated at 55-60 %. Left ventricular cavity size normal. Moderately increased septal wall thickness. No obvious regional wall motion abnormalities. Right Ventricle Mild right ventricular dilatation. Right ventricular systolic pressure within normal limits. Right Atrium Normal right atrial size. No right atrial thrombus or mass seen. Left Atrium Severely increased left atrial volume. Mildly increased left atrial area. No left atrial thrombus or mass present. Mitral Valve Structurally normal mitral valve. No mitral stenosis, regurgitation or prolapse. Aortic Valve Trileaflet aortic valve. Mild aortic stenosis with a peak gradient of 14 mmHg and a mean gradient of 8 mmHg. Focal thickening of the aortic valve cusps. Tricuspid Valve Structurally normal tricuspid valve. Mild tricuspid regurgitation. Pulmonic Valve Structurally normal pulmonic valve. Trace pulmonic regurgitation. Pericardium No pericardial or pleural effusion. Aorta Normal size aortic root and proximal ascending aorta. CONCLUSIONS Left ventricular ejection fraction 55-60% RVSP 28 Moderately dilated left atrium Mild aortic stenosis Previewed by: Dr. Jerman Dozier DO (Electronically Signed) Final Date: 03 June 2024 15:23
[2024-06-03 16:34] LABS: Glucose,Whole Blood 126 mg/dL (70-110)
[2024-06-03] MEDS: hydroCHLOROthiazide 25 MG TAB PO SCH (17:24)
[2024-06-03] MEDS: ESCITALOPRAM 10 MG TAB PO SCH (17:24)
[2024-06-03] MEDS: hydrALAZINE HCL 50 MG TAB PO SCH (17:24)
[2024-06-03] MEDS: MECLIZINE 25 MG TAB PO SCH (17:24)
[2024-06-03] MEDS: LOSARTAN 50 MG TAB PO SCH (17:24)
[2024-06-03 20:06] LABS: Glucose,Whole Blood 156 mg/dL (70-110)
[2024-06-03] MEDS: SODIUM BICARBONATE TAB 650 MG TAB PO SCH (20:07)
[2024-06-03] MEDS ORDERED: MECLIZINE 25 MG TAB PO SCH (21:00)
[2024-06-04 06:20] LABS: Basophils % (A) 0 %; Eosinophils # (A) 0.2 k/uL (0-0.7); Eosinophils % (A) 2 %; HCT 41.4 % (39.0-53.0); HGB 14.1 gm/dL (13.0-17.5); Lymphocytes # (A) 1.9 k/uL (1.0-4.8); Lymphocytes % (A) 23 %; MCH 34.6 pg (25.0-35.0); MCHC 34.1 g/dL (31.0-37.0); MCV 101.6 fL (80.0-100.0); Macrocytosis Slight; Mean Platelet Volume 8.2; Monocytes # (A) 0.6 k/uL (0-1.0); Monocytes % (A) 7 %; Neutrophils # (A) 5.5 k/uL (1.3-7.7); Neutrophils % (A) 67 %; Platelet Count 222 k/uL (150-450); RBC 4.08 m/uL (4.30-5.90); RDW 13.3 % (11.5-15.5); WBC 8.2 k/uL (3.8-10.6)
[2024-06-04 06:21] LABS: Glucose,Whole Blood 158 mg/dL (70-110)
[2024-06-04 06:43] LABS: African American GFR (CKD) 61 (>60 ml/min/1.73 sqM); Anion Gap 10 mmol/L; Blood Urea Nitrogen 24 mg/dL (9-20); Calcium 9.1 mg/dL (8.4-10.2); Carbon Dioxide 22 mmol/L (22-30); Chloride 105 mmol/L (98-107); Glucose 140 mg/dL (74-99); Non-African American GFR(CKD) 52 (>60 ml/min/1.73 sqM); Sodium 137 mmol/L (137-145)
[2024-06-04] MEDS: METOPROLOL SUCCINATE (ER) 25 MG TAB.ER.24H PO SCH (08:35)
[2024-06-04 11:47] LABS: Glucose,Whole Blood 162 mg/dL (70-110)
--- NOTE | 2024-06-04 12:15 | P.PN ---
Subjective Progress Note Date: 06/04/24 History of present illness: Is a pleasant 79-year-old male with significant past medical CVA, diabetes, hy pertension, vertigo who presented with complaints of dizziness and worsening shortness of breath. He does follow with Dr. Luong in the office. He does not smoke, drinks 2 beers a day. He is hard of hearing. He reports 3-4 days ago feeling dizzy and off balance and almost fell. Today the spinning sensation got worse and he was unable to walk therefore he presented to the hospital. He also has been having intermittent episodes of chest pain. He does also admit that his shortness of breath has been significantly worse over the past 2-3 weeks and he is unable to walk to the mailbox like he was previously without feeling winded. Reviewed: Troponin negative x 3, BNP 210, creatinine 1.06, potassium 4.5. Head CT with no acute findings. Chest x-ray with no acute findings. EKG shows sinus bradycardia, 58 bpm. He did have prior Cardiolite stress test 03/2022 that was reported normal. Prior echocardiogram from 03/2022 with normal EF and moderate mitral regurgitation. CTA head and neck from 07/2023 shows no significant stenosis. 06/04/2024 ECHO with EF 55-60%, mild aortic stenosis, RVSP 28. He is feeling better with less room spinning today. He still feels off balance when walking. Still with some shortness of breath but better. No chest pain. PHYSICAL EXAMINATION: This is a 79-year-old male in no apparent distress at the time of my examination. Hard of hearing. HEENT: Head is atraumatic, normocephalic. Pupils are equal, round. Sclerae anicteric. Conjunctivae are clear. Mucous membranes of the mouth are moist. Neck is supple. There is no jugular venous distention. No carotid bruit is heard. CHEST EXAMINATION: Lungs are clear to auscultation. No chest wall tenderness is noted on palpation or with deep breathing. HEART EXAMINATION: Heart regular rate and rhythm. S1, S2 heard. Slight murmur, gallops or rub. ABDOMEN: Soft, nontender. Bowel sounds are heard. EXTREMITIES: 2+ peripheral pulses with no evidence of peripheral edema and no calf tenderness noted. NEUROLOGIC EXAMINATION: Patient is awake, alert and oriented x3. IMPRESSION AND PLAN: History of CVA Diabetes type 2 Hypertension Vertigo Dyspnea Moderate mitral regurgitation Chest pain Mild aortic stenosis PLAN: ECHO with mild aortic stenosis. Blood pressure has been labile. Ortho VS mildly positive. Monitor blood pressure. Decrease hydralazine to 25mg BID and monitor response. Neuro eval pending. Further recommendations pending clinical course. I am dictating on behalf of Dr. Jerman Dozier's history/physical and assessment/plan. Objective - Vital Signs Vital signs: Vital Signs Temp 97.8 F 06/04/24 08:39 Pulse 54 L 06/04/24 08:39 Resp 16 06/04/24 08:39 BP 133/78 06/04/24 08:39 Pulse Ox 95 06/04/24 08:39 FiO2 Intake & Output 06/03/24 06/04/24 06/04/24 18:59 06:59 18:59 Intake Total 0 Output Total 750 700 Balance -750 -700 Weight 93 kg Intake: Oral 0 Output: Urine 750 700 Other: # Voids 1 - Labs CBC & Chem 7: 06/04/24 05:49 06/04/24 05:49 Labs: Abnormal Lab Results - Last 24 Hours (Table) 06/03/24 06/03/24 06/04/24 Range/Units 16:33 20:04 05:49 RBC 4.08 L (4.30-5.90) m/uL MCV 101.6 H (80.0-100.0) fL BUN (9-20) mg/dL Creatinine (0.66-1.25) mg/dL Glucose (74-99) mg/dL POC Glucose (mg/dL) 126 H 156 H (70-110) mg/dL 06/04/24 06/04/24 06/04/24 Range/Units 05:49 06:19 11:44 RBC (4.30-5.90) m/uL MCV (80.0-100.0) fL BUN 24 H (9-20) mg/dL Creatinine 1.31 H (0.66-1.25) mg/dL Glucose 140 H (74-99) mg/dL POC Glucose (mg/dL) 158 H 162 H (70-110) mg/dL
--- NOTE | 2024-06-04 14:15 | P.PN ---
Subjective Progress Note Date: 06/04/24 79-year-old male with a past medical history of hypertension, diabetes, anxiety, GERD, and vertigo presents to the ED with dizziness and shortness of breath. Patient reports earlier this morning he got up from bed to go to the bathroom and found that the room was spinning and he was short of breath. Patient reports he has been cutting back on his vertigo medication and blood pressure medication recently, and has not been taking the prescribed doses. Patient reports when the symptoms started he tried taking his vertigo medication to resolve his symptoms, but did not have any success. At this point patient felt it was necessary to come to the emergency room. Initial lab work done in the ER showed WBC 8.3, hemoglobin 14.3, MCV 102.2, sodium 136, potassium 4.4, chloride 108, bicarb 19, creatinine 1.06, glucose 166, troponins less than 0.012, and BNP 210. EKG done in the ER showed heart rate of 58 bpm, no ST segment elevation or depression seen, no T-wave inversions seen. Left axis deviation, voltage criteria for LVH Chest x-ray done in the ER shows low lung volumes. No evidence of acute cardiopulmonary disease. CT head done showed no acute intracranial process Patient admitted to internal medicine service 06/04. Patient seen and examined. Continues to complain of dizziness. Cardiology decreased dose of hydralazine. Neurology consulted REVIEW OF SYSTEMS: CONSTITUTIONAL: No fever, no malaise,. CARDIOVASCULAR: No chest pain, no palpitations, no syncope. PULMONARY: No shortness of breath, no cough, GASTROINTESTINAL: No diarrhea, no nausea, no vomiting, no abdominal pain. NEUROLOGICAL: No headaches, no weakness, PHYSICAL EXAMINATION: GENERAL: The patient is alert and oriented x3, not in any acute distress. Well developed, well nourished. HEENT: Pupils are round and equally reacting to light. EOMI. No scleral icterus. No conjunctival pallor. Normocephalic, atraumatic. No pharyngeal erythema. No thyromegaly. CARDIOVASCULAR: S1 and S2 present. No murmurs, rubs, or gallops. PULMONARY: Chest is clear to auscultation, no wheezing or crackles. ABDOMEN: Soft, nontender, nondistended, normoactive bowel sounds. No palpable organomegaly. MUSCULOSKELETAL: No joint swelling or deformity. EXTREMITIES: No cyanosis, clubbing, or pedal edema. NEUROLOGICAL: Gross neurological examination did not reveal any focal deficits. SKIN: No rashes. Assessment and plan #Vertigo: History of diagnosed vertigo, patient has not been taking normal home dose. Continue meclizine 25 mg p.o. [address] head showed no abnormalities Consult neurology # Shortness of breath/chest discomfort: Troponins negative, BNP negative, EKG shows no abnormalities, CXR shows no abnormalities Cardiology on consult Echo done showed moderate dilated left atrium, mild aortic stenosis #Metabolic acidosis: Monitor BMP #Hypertension: Continued home meds #Anxiety: Continued home meds Labs and medication were reviewed.. Continue same treatment. Continue with symptomatic treatment. Resume home medication. Monitor labs and vitals. DVT and GI prophylaxis. Further recommendations as per clinical course of the patient Dictation was produced using [employer] dictation software. please excuse any grammatical, word or spelling errors. Objective - Vital Signs Vital signs: Vital Signs Temp 97.8 F 06/04/24 08:39 Pulse 54 L 06/04/24 08:39 Resp 16 06/04/24 08:39 BP 133/78 06/04/24 08:39 Pulse Ox 95 06/04/24 08:39 FiO2 Intake & Output 06/03/24 06/04/24 06/04/24 18:59 06:59 18:59 Intake Total 0 Output Total 750 700 Balance -750 -700 Weight 93 kg Intake: Oral 0 Output: Urine 750 700 Other: # Voids 1 - Labs CBC & Chem 7: 06/04/24 05:49 06/04/24 05:49 Labs: Abnormal Lab Results - Last 24 Hours (Table) 06/03/24 06/03/24 06/03/24 Range/Units 11:46 16:33 20:04 RBC (4.30-5.90) m/uL MCV (80.0-100.0) fL BUN (9-20) mg/dL Creatinine (0.66-1.25) mg/dL Glucose (74-99) mg/dL POC Glucose (mg/dL) 153 H 126 H 156 H (70-110) mg/dL 06/04/24 06/04/24 06/04/24 Range/Units 05:49 05:49 06:19 RBC 4.08 L (4.30-5.90) m/uL MCV 101.6 H (80.0-100.0) fL BUN 24 H (9-20) mg/dL Creatinine 1.31 H (0.66-1.25) mg/dL Glucose 140 H (74-99) mg/dL POC Glucose (mg/dL) 158 H (70-110) mg/dL
[2024-06-04 16:27] LABS: Glucose,Whole Blood 210 mg/dL (70-110)
[2024-06-04 20:18] LABS: Glucose,Whole Blood 138 mg/dL (70-110)
[2024-06-04] MEDS: hydrALAZINE HCL 25 MG TAB PO SCH (21:21)
[2024-06-05 05:04] VITALS: RESP 18
[2024-06-05 06:34] LABS: Glucose,Whole Blood 162 mg/dL (70-110)
[2024-06-05 08:24] VITALS: BP 157/80; PULSE 60; TEMP 97.8
[2024-06-05 08:26] LABS: African American GFR (CKD) 42 (>60 ml/min/1.73 sqM); Anion Gap 7 mmol/L; Blood Urea Nitrogen 34 mg/dL (9-20); Calcium 9.4 mg/dL (8.4-10.2); Carbon Dioxide 28 mmol/L (22-30); Chloride 104 mmol/L (98-107); Glucose 161 mg/dL (74-99); Non-African American GFR(CKD) 36 (>60 ml/min/1.73 sqM); Potassium 4.6 mmol/L (3.5-5.1); Sodium 139 mmol/L (137-145)
[2024-06-05 11:44] LABS: Glucose,Whole Blood 169 mg/dL (70-110)
[2024-06-05] MEDS: amLODIPine 5 MG TAB PO SCH (12:32)
--- NOTE | 2024-06-05 15:38 | P.DS ---
Providers Date of admission: 06/03/24 02:48 Attending physician: Darshan Puente Consults: 06/03/24 02:57 Consult Physician Urgent Consulting Provider: [facility] Consult Reason/Comments: acute chest pain Do you want consulting provider notified?: Yes 06/04/24 11:58 Consult Physician Urgent Consulting Provider: Jim Robison Consult Reason/Comments: dizziness Do you want consulting provider notified?: Yes Primary care physician: Marshall Robertson Hospital Course: Discharge Diagnosis: Vertigo Chest discomfort Acute kidney injury Metabolic acidosis Hypertension Anxiety Hospital Course: 79-year-old male with significant past medical CVA, diabetes, hypertension, vertigo who presented with complaints of dizziness and worsening shortness of breath. He does follow with Dr. Luong in the office. He does not smoke, drinks 2 beers a day. He is hard of hearing. He reports 3-4 days ago feeling dizzy and off balance and almost fell. Today the spinning sensation got worse and he was unable to walk therefore he presented to the hospital. He also has been having intermittent episodes of chest pain. He does also admit that his shortness of breath has been significantly worse over the past 2-3 weeks and he is unable to walk to the mailbox like he was previously without feeling winded. Reviewed: Troponin negative x 3, BNP 210, creatinine 1.06, potassium 4.5. Head CT with no acute findings. Chest x-ray with no acute findings. EKG shows sinus bradycardia, 58 bpm. He did have prior Cardiolite stress test 03/2022 that was reported normal. Prior echocardiogram from 03/2022 with normal EF and moderate mitral regurgitation. CTA head and neck from 07/2023 shows no significant stenosis. While admitted patient received an echo which showed an EF of 55 to 60%, mild aortic stenosis, RSVP 28. After the results of the echo cardiology felt safe signing off on the patient from a cardiology standpoint. While admitted patient was restarted on his meclizine 25 mg p.o. 3 times daily with subsequent resolution of his dizziness symptoms. Patient was seen and cleared by neurology as well from a neurological standpoint. At time of discharge patient's home losartan was changed to 50 mg p.o. daily and home hydralazine changed to 25 mg p.o. twice daily. Patient's meclizine frequency was increased from twice daily to 3 times daily on discharge. At the time of discharge patient's symptoms of dizziness and shortness of breath had resolved. Patient is medically cleared for discharge to home. Patient is advised to follow-up closely with his PCP and neurologist. Pt seen and examined at bedside: Patient eager to go home. No complaints. Vital signs reveiwed and stable: General: non toxic, no distress, appears at stated age, normal weight Derm: no unusual rashes/lesions, warm Head: atraumatic, normocephalic, symmetric Eyes: EOMI, no lid lag, anicteric sclera, pupils equal round reactive to light ENT: Nose and ears atraumatic Neck: No cervical lymphadenopathy, trachea midline, supple Mouth: no lip lesion, mucus membranes moist Cardiovascular: S1S2 reg, no murmur, positive dorsalis pedis pulse bilateral, no edema Lungs: Decreased air entry bilaterally, no rhonchi, no rales, no accessory muscle use Abdominal: soft, nontender to palpation, no guarding Ext: muscle strength 5 out of 5 in all 4 extremities grossly, no gross muscle atrophy, no contractures, Neuro: CN II-XI grossly intact, no gross focal neuro deficits Psych: Alert, oriented, appropriate affect A total of [35 minutes were spent preparing this complex discarge summary. Attestation I have seen and examined this patient with my resident , discussed the same with the resident/JULIA, and agree with the dictator's assessment and plan as written Dr. Jacob arenas Patient Condition at Discharge: Stable Plan - Discharge Summary Discharge Rx Participant: No New Discharge Prescriptions: New Meclizine [Antivert] 25 mg PO TID #90 tab Losartan [Cozaar] 50 mg PO DAILY #30 tab hydrALAZINE HCL [Apresoline] 25 mg PO BID #60 tab Continue LORazepam [Ativan] 1 mg PO BID PRN PRN Reason: Anxiety hydroCHLOROthiazide [Hydrodiuril] 25 mg PO DAILY Sildenafil Citrate 100 mg PO DAILY PRN PRN Reason: E.D Meclizine [Antivert] 25 mg PO BID Escitalopram [Lexapro] 10 mg PO DAILY Metoprolol Succinate (ER) [Toprol XL] 25 mg PO DAILY Discontinued Losartan Potassium [Cozaar] 100 mg PO DAILY hydrALAZINE HCL [Apresoline] 50 mg PO BID Discharge Medication List LORazepam [Ativan] 1 mg PO BID PRN 07/27/22 [History] hydroCHLOROthiazide [Hydrodiuril] 25 mg PO DAILY 07/30/23 [History] Escitalopram [Lexapro] 10 mg PO DAILY 06/03/24 [History] Meclizine [Antivert] 25 mg PO BID 06/03/24 [History] Metoprolol Succinate (ER) [Toprol XL] 25 mg PO DAILY 06/03/24 [History] Sildenafil Citrate 100 mg PO DAILY PRN 06/03/24 [History] Losartan [Cozaar] 50 mg PO DAILY #30 tab 06/05/24 [Rx] Meclizine [Antivert] 25 mg PO TID #90 tab 06/05/24 [Rx] hydrALAZINE HCL [Apresoline] 25 mg PO BID #60 tab 06/05/24 [Rx] Follow up Appointment(s)/Referral(s): Marshall Robertson MD [Primary Care Provider] - 1-2 days (Please call to make a follow-up appointment with your primary care doctor.) Marilee Newton MD [REFERRING] - 1 Week (Please call to make a follow up with neurology.) Patient Instructions/Handouts: Vertigo (DC) Discharge Disposition: HOME SELF-CARE
--- NOTE | 2024-06-05 17:00 | P.PN ---
Subjective Progress Note Date: 06/05/24 History of present illness: Is a pleasant 79-year-old male with significant past medical CVA, diabetes, hy pertension, vertigo who presented with complaints of dizziness and worsening shortness of breath. He does follow with Dr. Luong in the office. He does not smoke, drinks 2 beers a day. He is hard of hearing. He reports 3-4 days ago feeling dizzy and off balance and almost fell. Today the spinning sensation got worse and he was unable to walk therefore he presented to the hospital. He also has been having intermittent episodes of chest pain. He does also admit that his shortness of breath has been significantly worse over the past 2-3 weeks and he is unable to walk to the mailbox like he was previously without feeling winded. Reviewed: Troponin negative x 3, BNP 210, creatinine 1.06, potassium 4.5. Head CT with no acute findings. Chest x-ray with no acute findings. EKG shows sinus bradycardia, 58 bpm. He did have prior Cardiolite stress test 03/2022 that was reported normal. Prior echocardiogram from 03/2022 with normal EF and moderate mitral regurgitation. CTA head and neck from 07/2023 shows no significant stenosis. 06/04/2024 ECHO with EF 55-60%, mild aortic stenosis, RVSP 28. He is feeling better with less room spinning today. He still feels off balance when walking. Still with some shortness of breath but better. No chest pain. 06/05/2024 Patient is seen and examined at bedside this a.m. Denies any chest pain chest pressure shortness of breath. Hemodynamically stable. PHYSICAL EXAMINATION: This is a 79-year-old male in no apparent distress at the time of my examination. Hard of hearing. HEENT: Head is atraumatic, normocephalic. Pupils are equal, round. Sclerae anicteric. Conjunctivae are clear. Mucous membranes of the mouth are moist. Neck is supple. There is no jugular venous distention. No carotid bruit is heard. CHEST EXAMINATION: Lungs are clear to auscultation. No chest wall tenderness is noted on palpation or with deep breathing. HEART EXAMINATION: Heart regular rate and rhythm. S1, S2 heard. Slight murmur, gallops or rub. ABDOMEN: Soft, nontender. Bowel sounds are heard. EXTREMITIES: 2+ peripheral pulses with no evidence of peripheral edema and no calf tenderness noted. NEUROLOGIC EXAMINATION: Patient is awake, alert and oriented x3. IMPRESSION AND PLAN: History of CVA Diabetes type 2 Hypertension Vertigo Dyspnea Moderate mitral regurgitation Chest pain Mild aortic stenosis PLAN: ECHO with mild aortic stenosis. Blood pressure has been labile. Ortho VS mildly positive. Monitor blood pressure. Decrease hydralazine to 25mg BID and monitor response. At this time patient is cleared from cardiovascular standpoint. Cardiology team will sign off. Recommend outpatient follow-up with cardiology Objective - Vital Signs Vital signs: Vital Signs Temp 97.8 F 06/05/24 08:00 Pulse 60 06/05/24 08:00 Resp 18 06/05/24 08:00 BP 157/80 06/05/24 08:00 Pulse Ox 97 06/05/24 08:00 FiO2 Intake & Output 06/04/24 06/05/24 06/05/24 18:59 06:59 18:59 Output Total 0 Balance 0 Weight 91.1 kg Output: Stool 0 Other: Voiding Method Urinal # Voids 2 1 - Labs CBC & Chem 7: 06/04/24 05:49 06/05/24 07:58 Labs: Abnormal Lab Results - Last 24 Hours (Table) 06/04/24 06/05/24 06/05/24 Range/Units 20:17 06:32 07:58 BUN 34 H (9-20) mg/dL Creatinine 1.78 H (0.66-1.25) mg/dL Glucose 161 H (74-99) mg/dL POC Glucose (mg/dL) 138 H 162 H (70-110) mg/dL 06/05/24 Range/Units 11:42 BUN (9-20) mg/dL Creatinine (0.66-1.25) mg/dL Glucose (74-99) mg/dL POC Glucose (mg/dL) 169 H (70-110) mg/dL
== END 2024-06-05 14:44 | disposition home or self-care (01) ==
LOC: EC 22:20 → 3SCARD 06-03 02:48
PROVIDERS: ADMIT Hospitalist; ATTEND Hospitalist
DX: I08.0 Rheumatic disorders of both mitral and aortic valves (principal); E87.20 Acidosis, unspecified; N17.9 Acute kidney failure, unspecified; H55.00 Unspecified nystagmus; I10 Essential (primary) hypertension; F41.9 Anxiety disorder, unspecified; K21.9 Gastro-esophageal reflux disease without esophagitis; I25.10 Atherosclerotic heart disease of native coronary artery without angina pectoris; Z86.73 Personal history of transient ischemic attack (TIA), and cerebral infarction without residual deficits; Z87.891 Personal history of nicotine dependence; Z79.899 Other long term (current) drug therapy; Z88.1 Allergy status to other antibiotic agents; Z88.5 Allergy status to narcotic agent
CPT/HCPCS: 96376 ×2; 96374 ×2; 96375; 99285; 36415; 93005; 93306; 85379; 83880; 80053; 80048 ×2; 83735; 84484 ×2; 85025 ×2; 85610; 85730; 71046; 70450; G0378 ×3; J0360; J2765 ×2; J2405; J1171